=== PATIENT | male | born 1930 | race Caucasian/White ===

== ENCOUNTER 2016-05-31 09:45 | Inpatient (IN) | payer MEDICARE ==
[~2016-05-31] VITALS: Ht 170.2 cm; Wt 52.2 kg
[~2016-05-31 09:45] MED LIST: ALEN70TA3 PO; ASPI-482 PO; CALC-98 PO; CARB1TAB22 PO; FURO-69 PO; HYDR-2869 PO; LISI2.5T PO; NPH,100I SQ; OMEP20CA5 PO; SIMV20TA3 PO
[2016-05-31] MEDS ORDERED: ONDANSETRON PF 4 MG/2 ML VIAL. ONE (10:02)
[2016-05-31] MEDS ORDERED: IV NORMAL SALINE 1,000ML 500 ML IV SCH (10:23)
--- NOTE | 2016-05-31 10:35 | PHYS DOC ---
General Chief Complaint: HEMATEMESIS/VOMITING BLOOD Stated Complaint: VOMITING BLOOD Time Seen by MD: 10:08 Source: patient, old records Exam Limitations: no limitations Problems: History of Present Illness Initial Comments Pt is 85/M to ED c/o n/v. Pt states yesterday afternoon developed generalized nausea and abdominal discomfort, began vomitting. States he vomitted several times thru the evening. This am again emesis after breakfast, pt decided to come to ED. Pt denies travel or bad food exposure, last BM yesterday (small/hard), no cp/sob /focal abdominal pains/fever/chills/SUNG/focal weakness. This am some red liquid in emesis, pt feared it may be blood. Vomit on arrival to ED, not witnessed by me. RN clarifies no gross blood in emesis, will gastroccult if another specimen available. PCP Dr Morales Timing/Duration: 24 hours Severity: moderate Modifying Factors: worse with eating, improves with rest Associated Symptoms: malaise, nausea/vomiting Allergies: Coded Allergies: No Known Drug Allergies (Unverified , 03/18/13) Past Medical History Medical History: other (CAD, CHF, HTN, hyperlipidemia, pulmonary hypertension, peripheral vascular disease, orthostatic hypotension, bradycardia, COPD, peripheral neuropathy, osteoarthritis, osteoporosis, Parkinson's, CKD3, Diabetes mellitus, GERD) Surgical History: appendectomy, pacemaker, other (hernia) Social History Smoker: quit greater than 1 year (quit > 20 yrs) Alcohol: none Drugs: none Review of Systems Constitutional: denies chills, denies diaphoresis, denies fever, malaise Respiratory: see HPIdenies cough, denies wheezing Cardiovascular: denies chest pain, denies palpitations, denies syncope Gastrointestinal: see HPI Genitourinary: denies dysuria, denies frequency, denies hematuria Musculoskeletal: denies back pain, denies joint swelling, denies neck pain Psychiatric/Neurological: denies headache, denies numbness, denies paresthesia Hematologic/Lymphatic: denies blood clots, denies easy bleeding, denies easy bruising Physical Exam General Appearance: mild distress, thin Eyes: bilateral eye EOMI, bilateral eye PERRL, bilateral eye normal inspection Ear, Nose, Throat: hearing grossly normal, normal ENT inspection (dry membranes ), normal pharynx Neck: non-tender, supple Respiratory: chest non-tender, no respiratory distress, other (coarse BS L upper lung field, decreased at bases L>R, ) Cardiovascular: normal peripheral pulses, regular rate, rhythm Gastrointestinal: soft (nondistended, no focal tenderness or masses, BS diminished) Back: no CVA tenderness, no vertebral tenderness Extremities: non-tender, normal inspection Neurologic/Psychiatric: distribution tech II-XII nml as tested, no motor/sensory deficits, alert, normal mood/affect, oriented x 3 Skin: warm/dry (poor turgor) Orders, Labs, Meds EKG: NSR 84 bpm, LVH with repolarization, PVC no STEMI REASON: n/v PROCEDURE: ACUTE ABDOMEN SERIES Abdomen series with chest, 3 views, 05/31/2016: History: Nausea and vomiting Gas is present in large and small bowel in the abdomen without bowel distention. Extensive arterial calcifications are present. Surgical clips are present on the right. The stomach is distended with fluid, gas and food debris and extends into the left chest cavity. This abnormal location of the stomach has been present on multiple previous studies and has been thought to be due to chronic diaphragmatic elevation versus a diaphragmatic hernia. There is moderate underlying streaky atelectasis in the left parahilar region. The heart size is normal. There is mild parenchymal scarring on the right. No acute right lung infiltrates are seen. IMPRESSION: 1. Chronic elevation of the left hemidiaphragm with moderate underlying left perihilar atelectasis. 2. Moderate distention of the stomach which extends into the left lower chest. This may be due to gastroparesis or an obstructive process such as gastric volvulus or gastric outlet obstruction. DICTATED AND SIGNED BY: EMILIANO RUIZ MD DATE: 05/31/16 1056 CC: GENEVIEVE MORALES MD; CRISTIANO STEARNS DO ~ REASON: n/v, obstruction eval. cannot tolerate contrast PROCEDURE: ABDOMEN PELVIS WO CONTRAST CT of the abdomen and pelvis without contrast, 05/31/2016: History: Abdominal pain and vomiting Noncontrast scans were obtained as requested. Comparison is made to a CT abdomen study from 01/24/[address] chest exam from 10/02/2015. The stomach and bowel loops extend into the left lower chest. This appears to be due to a chronic diaphragmatic hernia. The upper portion of the stomach was not included on these abdominal scans. The stomach is markedly dilated with fluid, debris and gas. A similar appearance was present on the study from 01/24/2013. The stomach was not distended on the CT chest exam of 10/02/2015. The gastric roberts are not thickened. No pneumatosis is seen. The GE junction and the pyloric region of the stomach are high in position and not included on this study. The duodenum and other small bowel loops are not distended. There is gas in large and small bowel in a nonspecific pattern. A few scattered colonic diverticula are noted. No free fluid or free air is evident in the abdomen or pelvis. There is mild atelectasis and/or scarring in the right base. No pleural fluid is evident. The gallbladder is surgically absent. The unopacified liver shows no abnormality. Dilatation of common bile duct is compatible with the postcholecystectomy state. The pancreas is atrophic. The spleen is of normal size. No renal abnormality is detected. There is extensive calcific plaquing of the abdominal aorta and its branches without evidence of aneurysm. No abdominal or pelvic adenopathy is seen. The prostate gland is markedly enlarged and lobulated. There is moderate diffuse bladder wall thickening. Moderate multilevel degenerative change is present in the spine. IMPRESSION: 1. 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 2. Marked distention of the stomach with fluid, gas and food debris. A similar appearance was present on a study from 01/24/2013. CT chest scanning would be necessary for complete visualization of the stomach, if clinically indicated. 3. Marked prostatic enlargement with moderate associated bladder wall thickening, presumably due to chronic bladder obstruction. 4. Mild colonic diverticulosis. PQRS Compliance Statement: One or more of the following individualized dose reduction techniques were utilized for this examination: 1. Automated exposure control 2. Adjustment of the mA and/or kV according to patient size 3. Use of iterative reconstruction technique DICTATED AND SIGNED BY: EMILIANO RUIZ MD DATE: 05/31/16 5933 CC: GENEVIEVE MORALES MD; CRISTIANO STEARNS DO ~ Pertinent labs: WBC 13.2, Na 149, CO2 38, BUN 66, Cr 2.9, glu 287, lactic acid 3.4, trop I 0.036, BNP 9947, urine studies pending. 1340: I discussed need for inpatient management with pt and spouse. Pt refuses transfer, states if he is to be admitted he'd like to be admitted [facility]. Pt understands not all specialties/medical services he may need are readily available and [facility] would better serve his needs. Persistent requests no transfer. I discussed pt with Dr Morales who agrees to accept pt for inpatient/telemetry admission. Will start empiric rocephin, as urine studies remain pending, and per Dr Morales's instruction will initiate bowel rest (NPO ), gentle diuresis while maintaining intravascular volume with NS 100mls/h. Cardiology to be consulted, echocardiogram ordered. Pt resting comfortably no emesis since pt arrival. Departure Time of Disposition: 13:49 Disposition: 09 ADMITTED INPATIENT Diagnosis: CHF, acute on chronic renal insuff, N/V w/gastric Condition: STABLE Additional Instructions: Inpatient telemetry admission Dr Morales is accepting. CRISTIANO STEARNS DO May 31, 2016 10:35
[2016-05-31] MEDS ORDERED: ONDANSETRON PF 4 MG/2 ML VIAL. IV ONE (10:45)
[2016-05-31] MEDS ORDERED: FAMOTIDINE 20 MG/2 ML VIAL IVP ONE (10:45)
[2016-05-31 10:48] LABS: BASO % 0 % (0-3); EOS % 0 % (0-3); HEMATOCRIT 43.5 % (39.0-53.0); LYMPH # 0.8 x10^3/uL (1.0-4.8); LYMPH % 6 % (24-48); MEAN CORPUSCULAR HEMOGLOBIN 31 pg (25-35); MEAN CORPUSCULAR HGB CONC 32 g/dL (31-37); MEAN CORPUSCULAR VOLUME 97 fL (79-100); MONO # 0.9 x10^3/uL (0.0-1.1); MONO % 7 % (0-9); NEUT # 11.4 x10^3uL (1.8-7.7); NEUT % 87 % (31-73); PLATELET COUNT 230 x10^3/uL (140-400); RED BLOOD COUNT 4.49 x10^6/uL (4.30-5.70); RED CELL DISTRIBUTION WIDTH 13.2 % (11.5-14.5); WHITE BLOOD COUNT 13.2 x10^3/uL (4.0-11.0)
[2016-05-31] MEDS ORDERED: IPRATRPIUM/ALBUTEROL 0.5/2.5MG 3 ML NEBU. NEB ONE (11:00)
[2016-05-31 11:07] LABS: ALBUMIN 3.7 g/dL (3.4-5.0); ALBUMIN/GLOBULIN RATIO 0.9 (1.0-1.7); CALCIUM 9.8 mg/dL (8.5-10.1); CREATININE 2.9 mg/dL (0.7-1.3); GFR 20.7; POTASSIUM 3.8 mmol/L (3.5-5.1); TOTAL BILIRUBIN 0.5 mg/dL (0.2-1.0); TOTAL PROTEIN 7.9 g/dL (6.4-8.2)
--- NOTE | 2016-05-31 11:12 | RAD ---
Abdomen series with chest, 3 views, 05/31/2016: History: Nausea and vomiting Gas is present in large and small bowel in the abdomen without bowel distention. Extensive arterial calcifications are present. Surgical clips are present on the right. The stomach is distended with fluid, gas and food debris and extends into the left chest cavity. This abnormal location of the stomach has been present on multiple previous studies and has been thought to be due to chronic diaphragmatic elevation versus a diaphragmatic hernia. There is moderate underlying streaky atelectasis in the left parahilar region. The heart size is normal. There is mild parenchymal scarring on the right. No acute right lung infiltrates are seen. IMPRESSION: 1. Chronic elevation of the left hemidiaphragm with moderate underlying left perihilar atelectasis. 2. Moderate distention of the stomach which extends into the left lower chest. This may be due to gastroparesis or an obstructive process such as gastric volvulus or gastric outlet obstruction.
[2016-05-31] MEDS ORDERED: POTASSIUM CHLORIDE 20 MEQ TABLET.ER. PO ONE (11:45)
[2016-05-31] MEDS ORDERED: INSULIN REGULAR 100 UNIT/ML 10ML VIAL. IV ONE (11:45)
--- NOTE | 2016-05-31 11:54 | EKG ---
[address] [address] Test Date: 2016-05-31 Test Time: 10:58:56 Pat Name: ABY PEREZ Department: Room: Gender: M Buck Presser: [id number] : 1930 Requested By: CRISTIANO STEARNS Order Number: [id number] Reading MD: Measurements Intervals [place] Rate: 84 P: 0 [place]: 218 QRS: -11 QRSD: 110 T: 178 QT: 408 QTc: 486 Interpretive Statements SINUS RHYTHM VENTRICULAR PREMATURE COMPLEX(ES) ATRIAL PREMATURE COMPLEX(ES) PROLONGED OH INTERVAL LEFTWARD AXIS R-S TRANSITION ZONE IN V LEADS DISPLACED TO THE RIGHT LVH WITH REPOLARIZATION ABNORMALITY RVH WITH REPOLARIZATION ABNORMALITY PROLONGED QT ABNORMAL ECG RI6.01 Unconfirmed report Compared to ECG 04/06/2013 18:02:49 First degree AV block now present Left-axis deviation now present Right ventricular hypertrophy now present Prolonged QT interval now present ST (T wave) deviation no longer present
--- NOTE | 2016-05-31 13:18 | RAD ---
CT of the abdomen and pelvis without contrast, 05/31/2016: History: Abdominal pain and vomiting Noncontrast scans were obtained as requested. Comparison is made to a CT abdomen study from 01/24/[address] chest exam from 10/02/2015. The stomach and bowel loops extend into the left lower chest. This appears to be due to a chronic diaphragmatic hernia. The upper portion of the stomach was not included on these abdominal scans. The stomach is markedly dilated with fluid, debris and gas. A similar appearance was present on the study from 01/24/2013. The stomach was not distended on the CT chest exam of 10/02/2015. The gastric roberts are not thickened. No pneumatosis is seen. The GE junction and the pyloric region of the stomach are high in position and not included on this study. The duodenum and other small bowel loops are not distended. There is gas in large and small bowel in a nonspecific pattern. A few scattered colonic diverticula are noted. No free fluid or free air is evident in the abdomen or pelvis. There is mild atelectasis and/or scarring in the right base. No pleural fluid is evident. The gallbladder is surgically absent. The unopacified liver shows no abnormality. Dilatation of common bile duct is compatible with the postcholecystectomy state. The pancreas is atrophic. The spleen is of normal size. No renal abnormality is detected. There is extensive calcific plaquing of the abdominal aorta and its branches without evidence of aneurysm. No abdominal or pelvic adenopathy is seen. The prostate gland is markedly enlarged and lobulated. There is moderate diffuse bladder wall thickening. Moderate multilevel degenerative change is present in the spine. IMPRESSION: 1. 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 2. Marked distention of the stomach with fluid, gas and food debris. A similar appearance was present on a study from 01/24/2013. CT chest scanning would be necessary for complete visualization of the stomach, if clinically indicated. 3. Marked prostatic enlargement with moderate associated bladder wall thickening, presumably due to chronic bladder obstruction. 4. Mild colonic diverticulosis. PQRS Compliance Statement: One or more of the following individualized dose reduction techniques were utilized for this examination: 1. Automated exposure control 2. Adjustment of the mA and/or kV according to patient size 3. Use of iterative reconstruction technique
[2016-05-31] MEDS ORDERED: ONDANSETRON PF 4 MG/2 ML VIAL. IV PRN (13:45)
[2016-05-31] MEDS ORDERED: ACETAMINOPHEN 325 MG TABLET PO PRN (13:45)
[2016-05-31] MEDS ORDERED: FUROSEMIDE 40 MG/4 ML VIAL IVP ONE (14:00)
[2016-05-31] MEDS ORDERED: CEFTRIAXONE SODIUM 1 GM in IV NORMAL SALINE 50ML 50 ML IV ONE (14:00)
[2016-05-31 14:06] LABS: AMPHETAMINE/METHAMPHETAMINE NEG (NEG); BARBITURATES NEG (NEG); BENZODIAZEPINES NEG (NEG); CANNABINOIDS NEG (NEG); COCAINE NEG (NEG); METHADONE NEG (NEG); OPIATES NEG (NEG); PHENCYCLIDINE NEG (NEG)
[2016-05-31 14:13] LABS: BILIRUBIN,URINE NEG (NEG); CLARITY,URINE CLEAR; COLOR,URINE YELLOW; GLUCOSE,URINE NEG (NEG)
[2016-05-31 14:14] LABS: BACTERIA,URINE 0 /HPF (0-FEW); HYALINE CASTS, URINE MANY /HPF; NITRITE,URINE NEG (NEG); RBC,URINE 20-40 /HPF (0-2); SQUAMOUS EPITHELIAL CELL,UR OCC /LPF; UROBILINOGEN,URINE 0.2 mg/dL (0.2 mg/dL); WBC,URINE RARE /HPF (0-4)
[2016-05-31 14:15] LABS: AMORPHOUS SEDIMENT,UR PRESENT /HPF
[2016-05-31] MEDS ORDERED: DEXTROSE 50% 25 GM / 50ML DISP.SYRIN. IV PRN (14:45)
[2016-05-31] MEDS ORDERED: ALBUTEROL SULFATE 2.5 MG/3 ML NEBU. NEB PRN (14:45)
[2016-05-31] MEDS ORDERED: IV NORMAL SALINE 250ML 250 ML ONE (14:58)
[2016-05-31] MEDS ORDERED: IV NORMAL SALINE 1,000ML 1,000 ML IV SCH (15:00)
[2016-05-31] MEDS ORDERED: CEFTRIAXONE SODIUM 1 GM in IV NORMAL SALINE 50ML 50 ML IV SCH (15:00)
[2016-05-31] MEDS ORDERED: IV NORMAL SALINE 100ML 100 ML ONE (15:03)
[2016-05-31] MEDS ORDERED: CALC-47 PO (15:07)
[2016-05-31] MEDS ORDERED: FURO20TA3 PO (15:09)
[2016-05-31] MEDS ORDERED: ACET500T68 PO (15:14)
[2016-05-31] MEDS ORDERED: AMLO2.5T PO (15:14)
[2016-05-31 15:15] VITALS: BP 177/64
[2016-05-31] MEDS ORDERED: POTA10TA10 PO (15:18)
[2016-05-31 15:28] VITALS: BP 126/63
--- NOTE | 2016-05-31 15:42 | NUR ---
Patient to room 109 from ER. Chief complaint is abdominal pain. Oriented to room, use of call light, and plan of care. Received verbalization of understanding, denies questions/needs. Will monitor.
--- NOTE | 2016-05-31 15:57 | NUR ---
Patient with positive sepsis screen. Initial lactic acid was 3.4 in the ED at 1035, per sepsis protocol this does not call for fluid bolus. Second lactic drawn at 1435 upon arrival to floor, this lactic was 5.8, was notified. Per sepsis screen fluid bolus not given due to INITIAL lactic acid less than 4 as stated in protocol. Patient not hypotensive. Will monitor. Addendum: 05/31/16 at 1620 by LYNNETTE ZALDIVAR RN Clarification. Patient without positive sepsis screen, per protocol patient scores 2 from Infection Criteria, but only 1 from SIRS. Vitals are stable and within normal limits. Per infection control without elevated HR or hypotension bolus not necessary at this time. Will continue to monitor.
[2016-05-31] MEDS ORDERED: IPRATRPIUM/ALBUTEROL 0.5/2.5MG 3 ML NEBU. NEB SCH (16:00)
[2016-05-31] MEDS ORDERED: INSULIN ASPART 300 UNITS/3 ML INSULN.PEN SQ SCH (16:30)
--- NOTE | 2016-05-31 17:33 | NUR ---
Patient transferred to ICU at [facility] room 109. Report called to JEREMIAH Nicholson. Chart copied and sent with patient. Patient agreeable to transfer, consent signed. Patient transported via [facility].
[2016-05-31] MEDS ORDERED: FUROSEMIDE 20 MG/2 ML VIAL IVP SCH ×2 (18:00→21:30)
[2016-05-31] MEDS ORDERED: POTASSIUM CHLORIDE 20 MEQ TABLET.ER. PO SCH ×2 (18:00→21:30)
--- NOTE | 2016-06-05 10:34 | HP ---
ADMIT DATE: 05/31/2016 HISTORY OF PRESENT ILLNESS: An 85-year-old gentleman admitted on 05/31/2016, came in through the Emergency Room with severe abdominal pain, nausea, and vomiting. The patient has vomited several times prior to admission and ___ liquid emesis. The patient was seen in the ER and found to have a possible gastric outlet obstruction. As a result of this, the patient was admitted at that time. When he was seen in the Emergency Room, he had refused to go down to [place]. He came in and I evaluated him and convinced him and his family that the best position would be to go to [place] for surgical intervention. He probably had a gastric outlet obstruction or possible volvulus as well. PAST MEDICAL HISTORY: CAD, CHF, hypertension, hyperlipidemia, pulmonary hypertension, peripheral vascular disease, orthostatic hypotension, bradycardia, COPD, peripheral neuropathy, arthritis, osteoporosis, Parkinson's disease, CKD 3, and type 2 diabetes. PAST SURGICAL HISTORY: He has had appendectomy, pacemaker placement, and severe hiatal hernia. SOCIAL HISTORY: The patient quit smoking more 20 years ago. Denies alcohol or drug use. Lives at home with his . FAMILY HISTORY: Noncontributory. ALLERGIES: No known drug allergies. REVIEW OF SYSTEMS: The patient notes the situation is made worse when he eats. HOME MEDICATIONS: The patient's home medications include Norvasc 2.5, aspirin, calcium carbonate, and furosemide 20. He takes some insulin, Prilosec 40, potassium chloride 20, and simvastatin 20. REVIEW OF SYSTEMS: Positive for nausea and vomiting. Denies chest pain. Does have some shortness of breath; however, the patient in turn. PHYSICAL EXAMINATION VITAL SIGNS: Blood pressure 150/70, respiration is 16, pulse 70, and afebrile. HEENT: The patient's head atraumatic and normocephalic. Eyes, PERRLA without jaundice. Mouth and throat were normal. NECK: Supple without JVD or thyromegaly. LUNGS: Diminished throughout, but clear. CARDIOVASCULAR: Regular sinus rhythm. S1 and S2. ABDOMEN: Protuberant, soft, and tenderness in the epigastric area. Definite decreased bowel sounds. ____ areas throughout the abdomen, which was distended. Stool Hemoccult negative. Normal male genitalia. EXTREMITIES: No clubbing, cyanosis, or edema. NEUROLOGIC: The patient was alert and oriented x3. LABORATORY DATA: The patient's labs were basically noncontributory. White count was 13,000. He did have a lactic acid of 5.8 and blood sugars in the 200s-300s. His creatinine was up to ____. IMPRESSION: Possible stomach or gastric outlet obstruction, elevated BNP, possible acute on top of chronic diastolic heart failure, elevated D-dimer, hematuria, type 2 diabetes, poorly controlled; chronic kidney disease 4, hypernatremia, dehydration, nausea, and vomiting. PLAN: The patient was stabilized and was convinced to go down to [place] where he had surgery for fundoplication of his esophagus. GENEVIEVE MORALES MD DR: IVON/my JOB#: [id number] / [id number]
--- NOTE | 2016-06-24 21:35 | DS ---
DATE OF DISCHARGE: 05/31/2016 HOSPITAL COURSE: An 86-year-old gentleman came in through the Emergency Room with severe abdominal pain, vomiting several times prior to admission. The patient was thought to have some type of a gastric outlet obstruction, also renal failure, CKD 4. The patient was transferred down to [place] because of the combination of problems regarding both Nephrology and GI and surgery that is not available here. See MRAD. Decreased activity, transfer to EMS. FINAL DIAGNOSES: Gastric out outlet obstruction, possible volvulus of the stomach, chronic kidney disease 4, elevated lactic acid, elevated BNP, hematuria. PLAN: As above. GENEVIEVE MORALES MD DR: IVON/my JOB#: [id number] / [id number]
== END 2016-05-31 17:38 | disposition short-term general hospital (02) | DRG 381 ==
LOC: ER 09:45 → 1 SOUTH 13:37
PROVIDERS: ADMIT Family Medicine; ATTEND Family Medicine
DX: K31.1 Adult hypertrophic pyloric stenosis (principal); I13.0 Hypertensive heart and chronic kidney disease with heart failure and stage 1 through stage 4 chronic kidney disease, or unspecified chronic kidney disease; N18.4 Chronic kidney disease, stage 4 (severe); E87.0 Hyperosmolality and hypernatremia; J98.11 Atelectasis; K92.0 Hematemesis; M81.0 Age-related osteoporosis without current pathological fracture; J44.9 Chronic obstructive pulmonary disease, unspecified; I27.2 Other secondary pulmonary hypertension; I25.10 Atherosclerotic heart disease of native coronary artery without angina pectoris; G20 Parkinson's disease; E78.5 Hyperlipidemia, unspecified; E11.51 Type 2 diabetes mellitus with diabetic peripheral angiopathy without gangrene; M19.90 Unspecified osteoarthritis, unspecified site; I95.1 Orthostatic hypotension; R00.1 Bradycardia, unspecified; E11.22 Type 2 diabetes mellitus with diabetic chronic kidney disease; E11.42 Type 2 diabetes mellitus with diabetic polyneuropathy; K21.9 Gastro-esophageal reflux disease without esophagitis; K44.9 Diaphragmatic hernia without obstruction or gangrene; K57.30 Diverticulosis of large intestine without perforation or abscess without bleeding; N18.3 Chronic kidney disease, stage 3 (moderate); N40.0 Benign prostatic hyperplasia without lower urinary tract symptoms; Z87.891 Personal history of nicotine dependence; Z95.0 Presence of cardiac pacemaker; Z90.49 Acquired absence of other specified parts of digestive tract; K31.89 Other diseases of stomach and duodenum; I50.9 Heart failure, unspecified
CPT/HCPCS: 36415; 74022; 74176; 80053; 81001; 82550; 82947; 83605; 83690; 83880; 84484; 85027; 85379; 85610; 85730; 87040; 93005; 94640; 96374; 96375; G0481; J0696; J1815; J1940; J2405; J7620; S0028; 99285-25; J7030

== ENCOUNTER 2017-05-03 10:30 | Inpatient (IN) | payer MEDICARE ==
[~2017-05-03] VITALS: Ht 160 cm; Wt 50.8 kg
[~2017-05-03 10:30] MED LIST changes: +ACET500T68 PO; +AMLO2.5T PO; +CALC-157 PO; +FURO20TA3 PO; +POTA10TA10 PO
[2017-05-03] MEDS ORDERED: 0.9 % SODIUM CHLORIDE 10 ML DISP.SYRIN. IV PRN (11:15)
--- NOTE | 2017-05-03 11:28 | EKG ---
[address] [address] Test Date: 2017-05-03 Test Time: 11:21:30 Pat Name: ABY PEREZ Department: Room: Gender: M Assembler Carbon Brushes: SAL[place] : 1930 Requested By: MEME AGUILAR Order Number: [id number] Reading MD: All Rosenthal MD Measurements Intervals [place] Rate: 60 P: ME: QRS: 5 QRSD: 160 T: 165 QT: 466 QTc: 471 Interpretive Statements ATRIAL DEMAND PACEMAKER V-PACED Electronically Signed On 05-06-2017 11:12:22 SEISMOGRAPH OPERATOR HELPER by All Rosenthal MD
[2017-05-03 11:30] LABS: BASO % 1 % (0-3); EOS # 0.2 x10^3/uL (0.0-0.7); EOS % 3 % (0-3); HEMATOCRIT 33.2 % (39.0-53.0); HEMOGLOBIN 11.1 g/dL (13.0-17.5); LYMPH # 1.7 x10^3/uL (1.0-4.8); LYMPH % 25 % (24-48); MEAN CORPUSCULAR HEMOGLOBIN 31 pg (25-35); MEAN CORPUSCULAR HGB CONC 33 g/dL (31-37); MEAN CORPUSCULAR VOLUME 93 fL (79-100); MONO # 0.6 x10^3/uL (0.0-1.1); MONO % 9 % (0-9); NEUT # 4.1 x10^3uL (1.8-7.7); NEUT % 62 % (31-73); PLATELET COUNT 347 x10^3/uL (140-400); RED BLOOD COUNT 3.57 x10^6/uL (4.30-5.70); RED CELL DISTRIBUTION WIDTH 15.2 % (11.5-14.5); WHITE BLOOD COUNT 6.6 x10^3/uL (4.0-11.0)
[2017-05-03 11:57] LABS: ALBUMIN 2.6 g/dL (3.4-5.0); ALBUMIN/GLOBULIN RATIO 0.7 (1.0-1.7); CALCIUM 8.8 mg/dL (8.5-10.1); CREATININE 1.2 mg/dL (0.7-1.3); GFR 57.1; MAGNESIUM 1.9 mg/dL (1.8-2.4); POTASSIUM 4.8 mmol/L (3.5-5.1); TOTAL BILIRUBIN 0.2 mg/dL (0.2-1.0); TOTAL PROTEIN 6.6 g/dL (6.4-8.2)
--- NOTE | 2017-05-03 12:03 | RAD ---
Two-view chest x-ray Indications: Shortness of air. Comparison: May 31, 2016. Findings: There is chronic elevation of the left hemidiaphragm up to the left hilum. Chronic atelectasis and scarring within the left lung base. There is an air-fluid level present laterally which corresponds to a bowel loop as seen on previous CT study of the chest dated October 02, 2015. There is another air-fluid level seen overlying the central aspect of the mediastinum which most likely is related to the stomach based on the previous study. There is chronic scarring and pleural thickening on the right side as well. No new lung infiltrate or pulmonary edema or new pleural effusion or new pneumothorax is seen. Transverse dimension of the heart is accentuated due to the rotation towards right side. A bipolar atrial-ventricular pacemaker is again noted. Mediastinum and pulmonary vasculature and both betty are stable otherwise. IMPRESSION: Chronic findings. No new radiographic abnormality is seen.
--- NOTE | 2017-05-03 13:03 | PHYS DOC ---
Past History Past Medical History: CHF, Diabetes, Hypertension, Other Past Surgical History: Pacemaker Smoking: Non-smoker Alcohol Use: None Drug Use: None Adult General Chief Complaint Chief Complaint: SHORTNESS OF BREATH HPI HPI 86-year-old male patient with history of chronic shortness of breath and diabetic ulcer. Osteomyelitis was seen by his primary care physician 4 days ago and because of history of pleural effusion instructed to follow up with his hide dyer [facility] but patient presented to his primary care physician office today again and Dr. Cruz recommended to come to ER for evaluation. Patient states he has chronic right foot ulcer and plans to have surgery on May 06 at [facility]. Patient denied fever and chills, cough and congestion, new focal neuro deficit, chest pain. Review of Systems Review of Systems Constitutional: Denies fever or chills [] Eyes: Denies change in visual acuity, redness, or eye pain [] HENT: Denies nasal congestion or sore throat [] Respiratory: Reports shortness of breath[] Cardiovascular: No additional information not addressed in HPI [] GI: Denies abdominal pain, nausea, vomiting, bloody stools or diarrhea [] : Denies dysuria or hematuria [] Musculoskeletal: Denies back pain or joint pain [] Integument: Denies rash or skin lesions, reports ulcer[] Neurologic: Denies headache, focal weakness or sensory changes [] Endocrine: Denies polyuria or polydipsia [] All other systems were reviewed and found to be within normal limits, except as documented in this note. Current Medications Current Medications Current Medications Medications (Trade) Dose Ordered Sig/[facility] Start Time Stop Time Status Last Admin Dose Admin Sodium Chloride (Normal Saline Flush) 10 ml QSHIFT PRN 05/03/17 11:15 Allergies Allergies Allergies Coded Allergies Type Severity Reaction Last Updated Verified No Known Drug Allergies 03/18/13 No Physical Exam Physical Exam Constitutional: Mild distress normal, oropharynx moist, no oral exudates, nose normal. [] Eyes: PERRLA, EOMI, conjunctiva normal, no discharge. [] Neck: Normal range of motion, no tenderness, supple, no stridor. [] Cardiovascular:Heart rate regular rhythm, no murmur [] Lungs & Thorax: Decrease of left lung With Bilateral Rhonchi, No Respiratory Distress or Intercostal Retraction] Abdomen: Bowel sounds normal, soft, no tenderness, no masses, no pulsatile masses. [] Skin: Warm, dry, no erythema, no rash. [] Back: No tenderness, no CVA tenderness. [] Extremities: Right foot with amputated toes and old ulcer in bottom of forefoot without acute abscess Neurologic: Alert and oriented X 3, normal motor function, normal sensory function, no focal deficits noted. [] Psychologic: Affect normal, judgement normal, mood normal. [] Current Patient Data Lab Results Laboratory Tests Test 05/03/17 11:14 White Blood Count 6.6 x10^3/uL (4.0-11.0) Red Blood Count 3.57 x10^6/uL (4.30-5.70) L Hemoglobin 11.1 g/dL (13.0-17.5) L Hematocrit 33.2 % (39.0-53.0) L Mean Corpuscular Volume 93 fL (79-100) Mean Corpuscular Hemoglobin 31 pg (25-35) Mean Corpuscular Hemoglobin Concent 33 g/dL (31-37) Red Cell Distribution Width 15.2 % (11.5-14.5) H Platelet Count 347 x10^3/uL (140-400) Neutrophils (%) (Auto) 62 % (31-73) Lymphocytes (%) (Auto) 25 % (24-48) Monocytes (%) (Auto) 9 % (0-9) Eosinophils (%) (Auto) 3 % (0-3) Basophils (%) (Auto) 1 % (0-3) Neutrophils # (Auto) 4.1 x10^3uL (1.8-7.7) Lymphocytes # (Auto) 1.7 x10^3/uL (1.0-4.8) Monocytes # (Auto) 0.6 x10^3/uL (0.0-1.1) Eosinophils # (Auto) 0.2 x10^3/uL (0.0-0.7) Basophils # (Auto) 0.0 x10^3/uL (0.0-0.2) Prothrombin Time 11.0 SEC (9.4-11.4) Prothrombin Time INR 1.1 (0.9-1.1) PTT 29 SEC (23-33) Sodium Level 143 mmol/L (136-145) Potassium Level 4.8 mmol/L (3.5-5.1) Chloride Level 106 mmol/L (98-107) Carbon Dioxide Level 32 mmol/L (21-32) Anion Gap 5 (6-14) L Blood Urea Nitrogen 32 mg/dL (8-26) H Creatinine 1.2 mg/dL (0.7-1.3) Estimated GFR (Cockcroft-Gault) 57.1 BUN/Creatinine Ratio 27 (6-20) H Glucose Level 144 mg/dL (70-99) H Lactic Acid Level 1.5 mmol/L (0.4-2.0) Calcium Level 8.8 mg/dL (8.5-10.1) Magnesium Level 1.9 mg/dL (1.8-2.4) Total Bilirubin 0.2 mg/dL (0.2-1.0) Aspartate Amino Transferase (AST) 20 U/L (15-37) Alanine Aminotransferase (ALT) 7 U/L (16-63) L Alkaline Phosphatase 103 U/L (46-116) Creatine Kinase 23 U/L (39-308) L Creatine Kinase MB (Mass) 0.8 ng/mL (0.0-3.6) Creatine Kinase MB Relative Index 3.5 % (0-4) Troponin I Quantitative < 0.017 ng/mL (0-0.055) WD-Mrw-C-Type Natriuretic Peptide 63441 pg/mL (0-449) H Total Protein 6.6 g/dL (6.4-8.2) Albumin 2.6 g/dL (3.4-5.0) L Albumin/Globulin Ratio 0.7 (1.0-1.7) L EKG EKG [EKG at 1122 showed sinus rhythm at rate of 60, LVH, no acute ST and T wave abnormality] Radiology/Procedures Radiology/Procedures [] Course & Med Decision Making Course & Med Decision Making Pertinent Labs and Imaging studies reviewed. (See chart for details) Evaluation of patient in ER showed 86-year-old male patient presented to ER because of chronic shortness of breath and diabetic ulcers. Patient had stable vital signs without fever. Chest x-ray did not show acute change compared to previous one. Labs showed mild anemia and renal insufficiency. Dr. Cruz informed at 1257 and recommended to admit patient for diabetic ulcer and start Rocephin. [] Dragon Disclaimer Dragon Disclaimer This electronic medical record was generated, in whole or in part, using a voice recognition dictation system. Departure Departure: Impression: Primary Impression: Diabetic ulcer of right foot Additional Impressions: Pleural effusion, left Renal insufficiency Dyspnea Anemia Disposition: ADMITTED INPATIENT (At 1257) Admitting Physician: Pramod Cruz Condition: STABLE Referrals: PRAMOD CRUZ MD (PCP) Problem Qualifiers MEME AGUILAR MD May 03, 2017 13:03
[2017-05-03] MEDS ORDERED: cefTRIAXone IV Push 1 GM VIAL. IVP SCH (14:00)
[2017-05-03 14:21] VITALS: BP 182/78
[2017-05-03 14:22] VITALS: BP 182/78
[2017-05-03] MEDS ORDERED: CARB1TAB2 PO (15:19)
[2017-05-03] MEDS ORDERED: SIMV20TA3 PO (15:19)
[2017-05-03] MEDS ORDERED: OMEP40CA5 PO (15:19)
[2017-05-03] MEDS ORDERED: ASPI-630 PO (15:19)
[2017-05-03] MEDS ORDERED: CALC-157 PO (15:19)
[2017-05-03] MEDS ORDERED: POTA20TA4 PO (15:19)
[2017-05-03] MEDS ORDERED: FURO20TA3 PO ×2 (15:19)
[2017-05-03] MEDS ORDERED: AMLO2.5T PO (15:19)
[2017-05-03] MEDS ORDERED: CEFP200T PO (15:27)
[2017-05-03] MEDS ORDERED: LACT1CAP2 PO (15:27)
[2017-05-03] MEDS ORDERED: NPH,100V SQ ×2 (15:40→18:55)
[2017-05-03] MEDS ORDERED: INSU500I SQ (15:40)
[2017-05-03] MEDS ORDERED: VANCOMYCIN PER PHARMACY MC PRN (18:15)
[2017-05-03] MEDS ORDERED: NPH HUMAN INSULIN ISOPHANE SQ PRN (18:15)
[2017-05-03] MEDS ORDERED: INSU100V5 IJ (18:58)
[2017-05-03] MEDS: CARBIDOPA/LEVODOPA 25/100MG TABLET PO SCH (21:00)
[2017-05-03] MEDS ORDERED: CEFPODOXIME PROXETIL 200 MG TABLET PO SCH (21:00)
[2017-05-03] MEDS: LACTOBACILLUS RHAMNOSUS GG 1 CAPSULE. PO SCH (21:00)
[2017-05-03] MEDS ORDERED: VANCOMYCIN 1.25 GM in IV NORMAL SALINE 250ML 250 ML IV ONE (21:00)
[2017-05-03] MEDS ORDERED: LACTOBACILLUS RHAMNOSUS GG 1 CAPSULE. PO SCH (21:00)
[2017-05-03] MEDS: hydrALAZINE 10 MG TABLET PO SCH (21:00)
[2017-05-03] MEDS: SIMVASTATIN 20 MG TABLET PO SCH (21:00)
[2017-05-03] MEDS: CALCIUM CARB/VIT D3 500/200 TABLET PO SCH (21:00)
[2017-05-03 21:21] VITALS: BP 170/79
[2017-05-03 21:35] VITALS: BP 157/76
[2017-05-03 23:54] VITALS: BP 154/79
[2017-05-04 06:16] VITALS: BP 175/87
[2017-05-04] MEDS ORDERED: INSULIN REGULAR HUMAN SQ SCH (07:30)
[2017-05-04] MEDS: INSULIN ASPART 300 UNITS/3 ML INSULN.PEN SQ SCH ×3 (07:30→17:15)
[2017-05-04 08:46] VITALS: BP 161/71
[2017-05-04] MEDS: hydrALAZINE 10 MG TABLET PO SCH ×2 (08:56→13:36)
[2017-05-04] MEDS: ASPIRIN 81 MG TAB.CHEW PO SCH (08:57)
[2017-05-04] MEDS: LACTOBACILLUS RHAMNOSUS GG 1 CAPSULE. PO SCH ×2 (08:58→20:53)
[2017-05-04] MEDS ORDERED: amLODIPine BESYLATE 2.5 MG TABLET PO SCH (09:00)
[2017-05-04] MEDS ORDERED: FLU VACC QS2017-18 (36MOS+)/PF 0.5 ML SYRINGE. VAX IM ONE (09:00)
[2017-05-04] MEDS: POTASSIUM CHLORIDE 20 MEQ TABLET.ER. PO SCH (09:00)
[2017-05-04] MEDS: CALCIUM CARB/VIT D3 500/200 TABLET PO SCH ×2 (09:03→20:53)
[2017-05-04] MEDS: PANTOPRAZOLE 40 MG TABLET. PO SCH (09:04)
[2017-05-04] MEDS: CARBIDOPA/LEVODOPA 25/100MG TABLET PO SCH ×4 (09:07→20:53)
[2017-05-04 10:39] VITALS: BP 153/66
--- NOTE | 2017-05-04 15:04 | PDOC2 ---
ANGELA ROSENTHAL FRAME COVERER 05/04/17 1504: CONSULT Date of Admission DATE: 05/04/17 TIME: 14:46 Reason for Consult: Congestive heart failure Referring Physician: Dr Cruz Problem List Problems Medical Problems: (1) Diabetic ulcer of right foot Status: Acute (2) SOB (shortness of breath) Status: Acute History of Present Illness This is a 86 year old male who presented to his primary care doctor's office yesterday with shortness of breath. He has a history of severe three vessel coronary artery disease for which he has been on medical therapy, ischemic cardiomyopathy, chronic systolic heart failure, sick sinus syndrome, hypertension, hyperlipidemia, type 2 diabetes mellitus, and stage 3 chronic kidney disease. Earlier in the month he was seen by the [place] and a CT scan was done that showed recurrent large left pleural effusion. He was encouraged to go back and see the tour bus driver he followed with at [facility] to get it drained. He tells me that they told him he was high risk and did not want to do any type of procedures or surgery. When I review the notes at [facility] he has not been seen there since 2013. He has also been suffering from osteomyelitis and was restarted on antibiotics. He continues to weigh himself daily and his weight has been down about 10 lb over the last month or 2. he does basic walking in his home but has been more short of breath and feeling weak the last few weeks. He denies any PND or orthopnea. His appetite is poor and he has not been sleeping well. He denies any chest pain, pressure or tightness. He cannot remember having any palpitations. Last week he was having some lower extremity edema that has since resolved. PAST MEDICAL HISTORY: Recurrent left pleural effusion, severe three vessel coronary artery disease for which he has been on medical therapy, ischemic cardiomyopathy now improved, chronic diastolic and systolic heart failure, sick sinus syndrome, hypertension, hyperlipidemia, type 2 diabetes mellitus, and stage 3 chronic kidney disease Past surgical history: Pacemaker placement, Appendectomy, Hernia Repair REVIEW OF SYSTEMS: He denies any fever or malaise. He denies any viral symptoms. He denies any neck pain. He denies any palpitations, dizziness, lightheadedness, or syncope, and asthma. He denies any cough. He denies any abdominal pain, diarrhea, vomiting, hematemesis, or melena. He has chronic leg ulceration of chronic edema. 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 He is slightly unsteady with his gait. He denies any falls. SOCIAL HISTORY: The patient was most recently discharged and lives at home with his . He uses regular salt and does not follow a low-salt diet. He used to smoke, but quit 20 years ago. He takes alcohol on social occasions. FAMILY HISTORY: Negative for premature coronary artery disease. Allergies -no known medication allergies Physical Exam Vital signs - temperature 97.2 pulse is 77 and blood pressure 153/66 GENERAL: This is a well developed, thin male. No apparent distress. SKIN: Warm and dry with normal skin turgor. Negative for pallor. +bruising noted. EYES: Conjunctiva are clear. Extraocular movements are intact. No xanthelasma. HEAD AND NECK: Oral mucosa is moist. There is no cyanosis. Neck is supple. Jugular venous pressure is flat. Carotid pulses are 2/2 bilaterally. No carotid bruits. There is no obvious thyromegaly. HEART: Regular rate and rhythm. Normal S1 and S2. No S3. No S4. + systolic murmur. No rub. PMI is not displaced. LUNGS: Effort is good. There is symmetric expansion bilaterally. Clear with diminished right base. ABDOMEN: Normal active bowel sounds. Soft. Nontender. EXTREMITIES: No clubbing. No cyanosis. No edema of lower extremities. Palpable pedal pulses. MUSCULOSKELETAL: No kyphosis. No scoliosis. No localized tenderness or stiffness. NEUROLOGIC: Alert and oriented times three. Cranial nerves III-XII are grossly intact. PSYCHOLOGIC: This is a pleasant patient with a normal affect Procedure ECHOCARDIOGRAM IMPRESSION (10/01/2015):. This is a technically difficult study There is moderate to severe left ventricular systolic dysfunction with an estimated ejection fraction of 30-35%. There is evidence of impaired left ventricular relaxation suggestive of stage I diastolic dysfunction. There is mild aortic valve sclerosis. There is mild mitral annular calcification. There is moderate mitral regurgitation. Compared to the report (images were not available for review) of the study dated 09/22/2013, the ejection fraction has decreased and the mitral regurgitation has increased, but the left atrial dilatation and the and the pulmonary hypertension was not seen. ECHOCARDIOGRAM IMPRESSION (09/24/2014): There is paradoxical septal motion consistent with a pacemaker. There is mild left ventricular systolic dysfunction with an estimated ejection fraction of 40- 45% with regional wall motion abnormalities. There is evidence of decreased diastolic compliance of the left ventricle consistent with mild diastolic dysfunction. The left atrium appears mildly dilated. The estimated pulmonary artery systolic pressure is 43 mmHg, consistent with mild pulmonary hypertension. Compared to the report (images were not available for review) of the study dated 04/08/2012, there has been a decrease in the ejection fraction. HOLTER MONITOR IMPRESSION (11/02/2013): 1. Baseline sinus bradycardia with an average heart rate of 51 beats per minute , ranging from 26 to 92 beats per minute with occasional supraventricular and ventricular ectopy as outlined above. There was no high-grade ectopy. 2. No symptoms were reported. Impression and plan Congestive heart failure, chronic, systolic - plan for echocardiogram today. He his BNP is significantly elevated however His pulmonary vascularity is normal on his chest x-ray and his weight has been dropping. His blood pressure is elevated and we could trial entresto one tablet twice a day this would help with bring his BNP level down and his cardiomyopathy. Severe 3 vessel coronary artery disease being treated with medical management. History of [place]. Refused further catheterization and bypass surgery. We will continue optimal medical therapy Sick sinus syndrome s/p permanent pacemaker implantation. Hypertension, borderline controlled. plan to add low dose entresto. Ischemic cardiomyopathy, Plan for low dose entresto Hyperlipidemia. His goal LDL is < 70 mg/dL. Continue statin. Current Medications Current Medications Sodium Chloride (Normal Saline Flush) 10 ml QSHIFT PRN IV AFTER MEDS AND BLOOD DRAWS; Start 05/03/17 at 11:15 Ceftriaxone Sodium 1 gm/ Sodium Chloride 50 ml @ 100 mls/hr 1X ONCE IV ; Start 05/03/17 at 13:15; Stop 05/03/17 at 13:44; Status DC Ceftriaxone Sodium (Rocephin) 1 gm Q24H IVP Last administered on 05/03/17at 14: 33; Start 05/03/17 at 14:00; Stop 05/03/17 at 18:16; Status DC Lactobacillus Rhamnosus (Culturelle) 1 cap BID PO ; Start 05/03/17 at 21:00; Status Cancel Influenza Virus Vaccine Quadrival (Fluarix Quad [id number] Syringe) 0.5 ml ONCE ONCE VAX IM Last administered on 05/04/17at 12:55; Start 05/04/17 at 09:00; Stop 05/04/17 at 09:01; Status DC Amlodipine Besylate (Norvasc) 2.5 mg DAILY PO Last administered on 05/04/17at 09 :03; Start 05/04/17 at 09:00 Aspirin (Children'S Aspirin) 81 mg DAILY PO Last administered on 05/04/17at 08: 57; Start 05/04/17 at 09:00 Calcium/Vitamin D (Oscal D 500mg/ 200uts) 1 tab BID PO Last administered on at 09:03; Start 05/03/17 at 21:00 Carbidopa/Levodopa (Sinemet 25/100) 1 tab QID PO Last administered on at 12:44; Start 05/03/17 at 21:00 Cefpodoxime Proxetil (Vantin) 100 mg BID PO ; Start 05/03/17 at 21:00; Stop at 21:00; Status DC Potassium Chloride (Klor-Con) 20 meq DAILY PO ; Start 05/04/17 at 09:00 Simvastatin (Zocor) 20 mg QHS PO Last administered on 05/03/17at 21:00; Start at 21:00 Non-Formulary Medication 5 unit TIDAC SQ ; Start 05/04/17 at 07:30; Stop at 07:30; Status DC Lactobacillus Rhamnosus (Culturelle) 1 cap BID PO Last administered on at 08:58; Start 05/03/17 at 21:00 Non-Formulary Medication 5 unit HS PRN SQ FOR BLOOD SUGAR >200; Start 05/03/17 at 18:15; Stop 05/03/17 at 19:02; Status DC Pantoprazole Sodium (Protonix) 40 mg DAILY PO Last administered on 05/04/17at 09 :04; Start 05/04/17 at 09:00 Vancomycin HCl (Vanco Per Pharmacy) 1 each PRN DAILY PRN MC SEE COMMENTS Last administered on 05/03/17at 19:26; Start 05/03/17 at 18:15 Hydralazine HCl (Apresoline) 10 mg TID PO Last administered on 05/04/17at 13:36 ; Start 1/29/18 at 21:00 Insulin Aspart (NovoLOG) FSBS 150-2,00: 3 UNITS F... TIDAC SQ Last administered on 05/04/17at 12:47; Start 05/04/17 at 07:30 Vancomycin HCl 1.25 gm/Sodium Chloride 250 ml @ 166.667 mls/hr 1X ONCE IV Last administered on 05/03/17at 21:42; Start 05/03/17 at 21:00; Stop 05/03/17 at 22:29; Status DC Vancomycin HCl 750 mg/Sodium Chloride 250 ml @ 250 mls/hr Q24H IV ; Start 05/04 at 21:00 Vancomycin HCl 1 each 1X ONCE MC ; Start 05/05/17 at 20:30; Stop 05/05/17 at 20 :31 Active Scripts Active Reported Humulin R (Insulin Regular, Human) 100 Unit/1 Ml Vial 3-5 Unit IJ TIDAC LAST DOSE GIVEN: DATE: TIME: NEXT DOSE DUE: DATE: TIME: Humulin N (Nph, Human Insulin Isophane) 100 Unit/1 Ml Vial 5 Unit SQ HS PRN LAST DOSE GIVEN: DATE: TIME: NEXT DOSE DUE: DATE: TIME: Cefpodoxime Proxetil 200 Mg Tablet 0.5 Tab PO BID LAST DOSE GIVEN: DATE: TIME: NEXT DOSE DUE: DATE: TIME: Acidophilus (Lactobacillus Acidophilus) 1 Each Capsule 2 Each PO BID LAST DOSE GIVEN: DATE: TIME: NEXT DOSE DUE: DATE: TIME: Simvastatin 20 Mg Tablet 1 Tab PO QHS LAST DOSE GIVEN: DATE: TIME: NEXT DOSE DUE: DATE: TIME: Klor-Con M20 (Potassium Chloride) 20 Meq Tab.er.prt 1 Tab PO DAILY LAST DOSE GIVEN: DATE: TIME: NEXT DOSE DUE: DATE: TIME: Omeprazole 40 Mg Capsule.dr 1 Cap PO DAILY LAST DOSE GIVEN: DATE: TIME: NEXT DOSE DUE: DATE: TIME: Sinemet 25-100 Mg Tablet (Carbidopa/Levodopa) 1 Each Tablet 1 Tab PO QID LAST DOSE GIVEN: DATE: TIME: NEXT DOSE DUE: DATE: TIME: Calcium 500 + Vit D 200 Tablet (Calcium Carbonate/Vitamin D3) 1 Each Tablet 1 Each PO BID LAST DOSE GIVEN: DATE: TIME: NEXT DOSE DUE: DATE: TIME: Aspirin 81 Mg Tab.chew 81 Mg PO DAILY LAST DOSE GIVEN: DATE: TIME: NEXT DOSE DUE: DATE: TIME: Amlodipine Besylate 2.5 Mg Tablet 1 Tab PO DAILY LAST DOSE GIVEN: DATE: TIME: NEXT DOSE DUE: DATE: TIME: Allergies: Coded Allergies: I S O L A T I O N *CONTACT* (Verified Allergy, Unknown, 05/04/17) +MRSA 03/19/13 NKMA (Verified Allergy, Unknown, 05/04/17) VITALS Vital Signs Date Time Temp Pulse Resp B/P (MAP) Pulse Ox O2 Delivery O2 Flow Rate FiO2 05/04/17 13:36 77 153/66 05/04/17 10:39 97.2 18 97 Room Air Labs Laboratory Tests Test 05/03/17 11:14 05/03/17 16:25 05/03/17 20:46 05/04/17 07:41 White Blood Count 6.6 x10^3/uL (4.0-11.0) Red Blood Count 3.57 x10^6/uL (4.30-5.70) Hemoglobin 11.1 g/dL (13.0-17.5) Hematocrit 33.2 % (39.0-53.0) Mean Corpuscular Volume 93 fL (79-100) Mean Corpuscular Hemoglobin 31 pg (25-35) Mean Corpuscular Hemoglobin Concent 33 g/dL (31-37) Red Cell Distribution Width 15.2 % (11.5-14.5) Platelet Count 347 x10^3/uL (140-400) Neutrophils (%) (Auto) 62 % (31-73) Lymphocytes (%) (Auto) 25 % (24-48) Monocytes (%) (Auto) 9 % (0-9) Eosinophils (%) (Auto) 3 % (0-3) Basophils (%) (Auto) 1 % (0-3) Neutrophils # (Auto) 4.1 x10^3uL (1.8-7.7) Lymphocytes # (Auto) 1.7 x10^3/uL (1.0-4.8) Monocytes # (Auto) 0.6 x10^3/uL (0.0-1.1) Eosinophils # (Auto) 0.2 x10^3/uL (0.0-0.7) Basophils # (Auto) 0.0 x10^3/uL (0.0-0.2) Prothrombin Time 11.0 SEC (9.4-11.4) Prothromb Time International Ratio 1.1 (0.9-1.1) Activated Partial Thromboplast Time 29 SEC (23-33) Sodium Level 143 mmol/L (136-145) Potassium Level 4.8 mmol/L (3.5-5.1) Chloride Level 106 mmol/L (98-107) Carbon Dioxide Level 32 mmol/L (21-32) Anion Gap 5 (6-14) Blood Urea Nitrogen 32 mg/dL (8-26) Creatinine 1.2 mg/dL (0.7-1.3) Estimated GFR (Cockcroft-Gault) 57.1 BUN/Creatinine Ratio 27 (6-20) Glucose Level 144 mg/dL (70-99) Lactic Acid Level 1.5 mmol/L (0.4-2.0) Calcium Level 8.8 mg/dL (8.5-10.1) Magnesium Level 1.9 mg/dL (1.8-2.4) Total Bilirubin 0.2 mg/dL (0.2-1.0) Aspartate Amino Transf (AST/SGOT) 20 U/L (15-37) Alanine Aminotransferase (ALT/SGPT) 7 U/L (16-63) Alkaline Phosphatase 103 U/L (46-116) Creatine Kinase 23 U/L (39-308) Creatine Kinase MB (Mass) 0.8 ng/mL (0.0-3.6) Creatine Kinase MB Relative Index 3.5 % (0-4) Troponin I Quantitative < 0.017 ng/mL (0-0.055) KG-Ivt-O-Type Natriuretic Peptide 14358 pg/mL (0-449) Total Protein 6.6 g/dL (6.4-8.2) Albumin 2.6 g/dL (3.4-5.0) Albumin/Globulin Ratio 0.7 (1.0-1.7) Glucose (Fingerstick) 263 mg/dL (70-99) 308 mg/dL (70-99) 105 mg/dL (70-99) Test 05/04/17 11:54 Glucose (Fingerstick) 262 mg/dL (70-99) NUNU QUINONEZ Jr, MD 05/05/17 0650: CONSULT Allergies: Coded Allergies: I S O L A T I O N *CONTACT* (Verified Allergy, Unknown, 05/04/17) +MRSA 03/19/13 NKMA (Verified Allergy, Unknown, 05/04/17) Assessment/Plan The patient was seen by Angela Rosenthal APRN and I have reviewed her findings and plan and agree with above. Due to staffing constraints, we did not have an attending available on this day to see the patient. Problems: ANGELA ROSENTHAL APRN May 04, 2017 15:04 NUNU QUINONEZ Jr, MD May 05, 2017 06:50
[2017-05-04 15:24] VITALS: BP 104/52
[2017-05-04 19:52] VITALS: BP 149/69
[2017-05-04] MEDS: SACUBITRIL/VALSARTAN 24/26MG TABLET. PO SCH (20:53)
[2017-05-04] MEDS: SIMVASTATIN 20 MG TABLET PO SCH (20:53)
[2017-05-04] MEDS: VANCOMYCIN 750 MG in IV NORMAL SALINE 250ML 250 ML IV SCH (20:54)
--- NOTE | 2017-05-04 22:12 | HP ---
ADMIT DATE: 05/03/2017 HISTORY OF PRESENT ILLNESS: An 86-year-old male came in. He has been seen several times over at the [place]. He has a history of severe 3-vessel coronary artery disease as well as ischemic cardiomyopathy and multiple other problems. The patient was seen at the [place]. CT scan showed a large left pleural effusion. The patient was recommended to see his optimization analyst at [facility] and also a thoracic surgeon to help drain this. He has osteomyelitis of his foot and was requiring amputation when these were all found out at the [place]. The patient also may have some heart failure. He was admitted for further evaluation of his pleural effusion, his osteomyelitis, type 2 diabetes in light. 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 PAST SURGICAL HISTORY: Pacemaker placement, appendectomy, hernia repair. FAMILY HISTORY: Noncontributory. SOCIAL HISTORY: The patient denies smoking, alcohol or drug use. ALLERGIES: The patient has no known allergies. REVIEW OF SYSTEMS: Denies fever, chills, does have shortness of breath, generalized cough, very mild. Denies abdominal pain, just very frail appearing, not eating well, of course pain in his feet from the diabetic neuropathy is there. 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 PHYSICAL EXAMINATION: GENERAL: This is an ill-appearing white male, looking frail, has some exophthalmus and drooping of the lower eyelids. VITAL SIGNS: Blood pressure 170/80, respiratory rate 20, pulse 80, afebrile. HEENT: The patient's head was atraumatic, normocephalic. Eyes: PERRLA without jaundice. Mouth and throat were normal. NECK: Supple, without JVD, carotid bruit or thyromegaly. LUNGS: Diminished throughout, poor movement of air. CARDIOVASCULAR: Regular sinus rhythm, S1, S2, with 1/6 systolic ejection murmur. ABDOMEN: Soft, nontender, no rebounding or guarding. Positive bowel sounds, no hepatosplenomegaly was noted. EXTREMITIES: No clubbing, cyanosis, nor edema. The patient has marked disfigurement of the toes on the right foot consistent with the patient's history of amputations of his toes. NEUROLOGIC: Pleasant gentleman with scoliosis to the spine. He is alert and oriented x 3 and a very soft spoken. LABORATORY DATA: Echocardiogram done a year or two ago shows 30-35% ejection fraction. IMPRESSION: Chronic systolic congestive heart failure, pleural effusion, severe 3-vessel coronary artery disease, sick sinus syndrome, hypertension, osteomyelitis of the right foot, ischemic cardiomyopathy, type 2 diabetes, poorly controlled, hyperlipidemia. The patient will be monitored carefully, make further evaluation on him as indicated, have Cardiology review and continue on vancomycin for the osteomyelitis. GENEVIEVE MORALES MD DR: IVON/my JOB#: [id number] / [id number]
[2017-05-04 22:41] VITALS: BP 130/68
[2017-05-05 05:08] VITALS: BP 143/69
[2017-05-05 06:55] LABS: CALCIUM 8.9 mg/dL (8.5-10.1); GFR 70.5; POTASSIUM 4.6 mmol/L (3.5-5.1)
[2017-05-05] MEDS: POTASSIUM CHLORIDE 20 MEQ TABLET.ER. PO SCH (07:46)
[2017-05-05] MEDS: INSULIN ASPART 300 UNITS/3 ML INSULN.PEN SQ SCH ×3 (08:25→17:37)
--- NOTE | 2017-05-05 08:41 | CARD ---
MR#: [id number] Date of Study: 05/04/2017 Ordering Physician: SAM ROSENTHAL, Referring Physician: GENEVIEVE MORALES, [place]: Kika Baca [facility] APPROVED REPORT EXAM: Two-dimensional and M-mode echocardiogram with Doppler and color Doppler. Other Information Quality : Technically Limited INDICATION CAD Congestive Heart Failure 2D DIMENSIONS IVSd0.8 (0.7-1.1cm)Aortic Root(2D)2.8 (2.0-3.7cm) LVDd5.1 (3.9-5.9cm)LVOT Diameter1.8 (1.8-2.4cm) PWd0.9 (0.7-1.1cm)LVDs4.5 (2.5-4.0cm) FS (%) 10.0 %SV30.2 ml LVEF(%)20.0 (>50%) Aortic Valve AoV Peak Tan.1.1cm/Mirna Peak GR.5.0mmHg Tricuspid Valve TR P. [id number] TR Peak [id number] LEFT VENTRICLE The left ventricle is normal size. There is normal left ventricular wall thickness. The ejection frac tion is severely impaired. The estimated ejection fraction is 20%. The left ventricular diastolic fun ction could not be determined. RIGHT VENTRICLE The right ventricle is normal size. The right ventricular systolic function is normal. There is a pac emaker or defibrillator lead seen in the right ventricle. ATRIA The left atrium is moderately to severely dilated. The right atrium is moderately dilated. AORTIC VALVE The aortic valve is trileaflet.The aortic valve is mildly to moderately sclerotic. There is trace aor tic regurgitation. There is no significant aortic valvular stenosis. MITRAL VALVE The mitral valve is moderately calcified. Mitral annular calcification is moderate to severe. There i s no mitral valve stenosis. There is mild to moderate mitral regurgitation. TRICUSPID VALVE The tricuspid valve leaflets are calcified. There is mild tricuspid regurgitation. The estimated pulm onary artery pressure is 32 mmHg. PULMONIC VALVE The pulmonic valve is not visualized. GREAT VESSELS The aortic root is normal in size. The IVC is normal in size and collapses >50% with inspiration. PERICARDIAL EFFUSION There is a pleural effusion. There is a rim of pericardial fluid. Critical Notification Critical Value: No <Conclusion> The left ventricle is normal size. There is normal left ventricular wall thickness. The ejection fraction is severely impaired. The estimated ejection fraction is 20%. The left ventricular diastolic function could not be determined. There is a pacemaker or defibrillator lead seen in the right ventricle. The left atrium is moderately to severely dilated. The right atrium is moderately dilated. The aortic valve is mildly to moderately sclerotic. There is mild to moderate mitral regurgitation. There is mild tricuspid regurgitation. The estimated pulmonary artery pressure is 32 mmHg. There is a pleural effusion. Signed by : Neftaly Bar JR, MD Electronically Approved : 05/05/2017 08:40:47
[2017-05-05 08:45] VITALS: BP_SYST 109; BP_SYST 79; BP_DIAS 47; BP_DIAS 62
[2017-05-05] MEDS: ASPIRIN 81 MG TAB.CHEW PO SCH (08:49)
[2017-05-05] MEDS: LACTOBACILLUS RHAMNOSUS GG 1 CAPSULE. PO SCH ×2 (08:49→20:12)
[2017-05-05] MEDS: CALCIUM CARB/VIT D3 500/200 TABLET PO SCH ×2 (08:50→20:13)
[2017-05-05] MEDS: CARBIDOPA/LEVODOPA 25/100MG TABLET PO SCH ×4 (08:50→20:13)
[2017-05-05] MEDS: PANTOPRAZOLE 40 MG TABLET. PO SCH (08:51)
[2017-05-05] MEDS: SACUBITRIL/VALSARTAN 24/26MG TABLET. PO SCH ×2 (09:00→20:13)
[2017-05-05 11:20] VITALS: BP 113/64
--- NOTE | 2017-05-05 11:57 | PDOC ---
PROGRESS NOTES Diagnosis Problem Problems Medical Problems: (1) Diabetic ulcer of right foot Status: Acute (2) SOB (shortness of breath) Status: Acute Assessment Ischemic cardiomyopathy. He has had a decline in his ejection fraction. Fortunately, his previous chest x-ray from 2 days ago was clear. I will stop his amlodipine. We will continue Entresto. He is also on hydralazine. We may want to consider a low-dose beta-roscoe if his blood pressure will tolerate. Given his advanced age and debilitated state, he is not a good candidate for prophylactic defibrillator implantation. CHF, chronic, systolic. As above, his chest x-ray was clear. He seems to be euvolemic at this point in time. We will continue with the present medications. Coronary artery disease. He is not having any angina. Sick sinus syndrome. Pacemaker appears to be functioning normally. Problems: Subjective We are seeing him due to ischemic cardiomyopathy, coronary artery disease, and chronic systolic heart failure. S: He denies chest pain, dyspnea, palpitations, syncope, or lower extremity edema. The wound care nurse has been checking his feet. Objective Vital Signs Date Time Temp Pulse Resp B/P (MAP) Pulse Ox O2 Delivery O2 Flow Rate FiO2 05/05/17 11:20 98.0 60 16 113/64 (80) 98 Room Air Intake and Output 05/05/17 07:00 Intake Total 1245 ml Balance 1245 ml Intake Oral 940 ml IV Total 305 ml # Voids 4 Abdomen: Normal bowel sounds, Soft, No tenderness Heart: Regular rate, Normal S1, Normal S2, No murmurs Extremities: No clubbing, No cyanosis, No edema, Normal pulses, No tenderness/ swelling General: Alert, Oriented X3, Cooperative, No acute distress HEENT: Atraumatic, EOMI, Mucous membr. moist/pink Lungs: Clear to auscultation, Normal air movement Neck: No JVD, +2 carotid pulse wo bruit Neuro: Normal speech, Strength at 5/5 X4 ext, Cranial nerves 3-12 NL Psych/Mental Status: Mental status NL, Mood NL Skin: No rashes Review of Relevant I have reviewed the following items tasneem (where applicable) has been applied. Labs Laboratory Tests Test 05/03/17 16:25 05/03/17 20:46 05/04/17 07:41 05/04/17 11:54 Glucose (Fingerstick) 263 mg/dL (70-99) 308 mg/dL (70-99) 105 mg/dL (70-99) 262 mg/dL (70-99) Test 05/04/17 16:40 05/04/17 20:23 05/05/17 06:10 05/05/17 07:22 Glucose (Fingerstick) 200 mg/dL (70-99) 189 mg/dL (70-99) 157 mg/dL (70-99) Sodium Level 138 mmol/L (136-145) Potassium Level 4.6 mmol/L (3.5-5.1) Chloride Level 104 mmol/L (98-107) Carbon Dioxide Level 30 mmol/L (21-32) Anion Gap 4 (6-14) Blood Urea Nitrogen 26 mg/dL (8-26) Creatinine 1.0 mg/dL (0.7-1.3) Estimated GFR (Cockcroft-Gault) 70.5 Glucose Level 180 mg/dL (70-99) Calcium Level 8.9 mg/dL (8.5-10.1) Microbiology 05/03/17 Blood Culture - Preliminary, Resulted NO GROWTH AFTER 2 DAYS 05/03/17 Aerobic Culture - Preliminary, Resulted 05/03/17 Aerobic Culture - Preliminary, Resulted 05/03/17 Gram Stain - Final, Resulted 05/03/17 Gram Stain Result 1 (NICO) - Final, Resulted 05/03/17 Gram Stain Result 2 (NICO) - Final, Resulted Medications Current Medications Sodium Chloride (Normal Saline Flush) 10 ml QSHIFT PRN IV AFTER MEDS AND BLOOD DRAWS; Start 05/03/17 at 11:15 Ceftriaxone Sodium 1 gm/ Sodium Chloride 50 ml @ 100 mls/hr 1X ONCE IV ; Start 05/03/17 at 13:15; Stop 05/03/17 at 13:44; Status DC Ceftriaxone Sodium (Rocephin) 1 gm Q24H IVP Last administered on 05/03/17at 14: 33; Start 05/03/17 at 14:00; Stop 05/03/17 at 18:16; Status DC Lactobacillus Rhamnosus (Culturelle) 1 cap BID PO ; Start 05/03/17 at 21:00; Status Cancel Influenza Virus Vaccine Quadrival (Fluarix Quad 7396-4915 Syringe) 0.5 ml ONCE ONCE VAX IM Last administered on 05/04/17at 12:55; Start 05/04/17 at 09:00; Stop 05/04/17 at 09:01; Status DC Amlodipine Besylate (Norvasc) 2.5 mg DAILY PO Last administered on 05/04/17at 09 :03; Start 05/04/17 at 09:00; Stop 05/05/17 at 08:54; Status DC Aspirin (Children'S Aspirin) 81 mg DAILY PO Last administered on 05/05/17at 08: 49; Start 05/04/17 at 09:00 Calcium/Vitamin D (Oscal D 500mg/ 200uts) 1 tab BID PO Last administered on at 08:50; Start 05/03/17 at 21:00 Carbidopa/Levodopa (Sinemet 25/100) 1 tab QID PO Last administered on at 08:50; Start 05/03/17 at 21:00 Cefpodoxime Proxetil (Vantin) 100 mg BID PO ; Start 05/03/17 at 21:00; Stop at 21:00; Status DC Potassium Chloride (Klor-Con) 20 meq DAILY PO ; Start 05/04/17 at 09:00 Simvastatin (Zocor) 20 mg QHS PO Last administered on 05/04/17at 20:53; Start at 21:00 Non-Formulary Medication 5 unit TIDAC SQ ; Start 05/04/17 at 07:30; Stop at 07:30; Status DC Lactobacillus Rhamnosus (Culturelle) 1 cap BID PO Last administered on at 08:49; Start 05/03/17 at 21:00 Non-Formulary Medication 5 unit HS PRN SQ FOR BLOOD SUGAR >200; Start 05/03/17 at 18:15; Stop 05/03/17 at 19:02; Status DC Pantoprazole Sodium (Protonix) 40 mg DAILY PO Last administered on 05/05/17at 08 :51; Start 05/04/17 at 09:00 Vancomycin HCl (Vanco Per Pharmacy) 1 each PRN DAILY PRN MC SEE COMMENTS Last administered on 05/03/17at 19:26; Start 05/03/17 at 18:15 Hydralazine HCl (Apresoline) 10 mg TID PO Last administered on 05/04/17at 13:36 ; Start 05/03/17 at 21:00; Stop 05/04/17 at 15:21; Status DC Insulin Aspart (NovoLOG) FSBS 150-2,00: 3 UNITS F... TIDAC SQ Last administered on 05/05/17at 08:25; Start 05/04/17 at 07:30 Vancomycin HCl 1.25 gm/Sodium Chloride 250 ml @ 166.667 mls/hr 1X ONCE IV Last administered on 05/03/17at 21:42; Start 05/03/17 at 21:00; Stop 05/03/17 at 22:29; Status DC Vancomycin HCl 750 mg/Sodium Chloride 250 ml @ 250 mls/hr Q24H IV Last administered on 05/04/17at 20:54; Start 05/04/17 at 21:00 Vancomycin HCl 1 each 1X ONCE MC ; Start 05/05/17 at 20:30; Stop 05/05/17 at 20 :31 Sacubitril/ Valsartan (Entresto 24 Mg-26 Mg) 1 tab BID PO Last administered on 05/04/17at 20:53; Start 05/04/17 at 21:00 Active Scripts Active Reported Humulin R (Insulin Regular, Human) 100 Unit/1 Ml Vial 3-5 Unit IJ TIDAC LAST DOSE GIVEN: DATE: TIME: NEXT DOSE DUE: DATE: TIME: Humulin N (Nph, Human Insulin Isophane) 100 Unit/1 Ml Vial 5 Unit SQ HS PRN LAST DOSE GIVEN: DATE: TIME: NEXT DOSE DUE: DATE: TIME: Cefpodoxime Proxetil 200 Mg Tablet 0.5 Tab PO BID LAST DOSE GIVEN: DATE: TIME: NEXT DOSE DUE: DATE: TIME: Acidophilus (Lactobacillus Acidophilus) 1 Each Capsule 2 Each PO BID LAST DOSE GIVEN: DATE: TIME: NEXT DOSE DUE: DATE: TIME: Simvastatin 20 Mg Tablet 1 Tab PO QHS LAST DOSE GIVEN: DATE: TIME: NEXT DOSE DUE: DATE: TIME: Klor-Con M20 (Potassium Chloride) 20 Meq Tab.er.prt 1 Tab PO DAILY LAST DOSE GIVEN: DATE: TIME: NEXT DOSE DUE: DATE: TIME: Omeprazole 40 Mg Capsule.dr 1 Cap PO DAILY LAST DOSE GIVEN: DATE: TIME: NEXT DOSE DUE: DATE: TIME: Sinemet 25-100 Mg Tablet (Carbidopa/Levodopa) 1 Each Tablet 1 Tab PO QID LAST DOSE GIVEN: DATE: TIME: NEXT DOSE DUE: DATE: TIME: Calcium 500 + Vit D 200 Tablet (Calcium Carbonate/Vitamin D3) 1 Each Tablet 1 Each PO BID LAST DOSE GIVEN: DATE: TIME: NEXT DOSE DUE: DATE: TIME: Aspirin 81 Mg Tab.chew 81 Mg PO DAILY LAST DOSE GIVEN: DATE: TIME: NEXT DOSE DUE: DATE: TIME: Amlodipine Besylate 2.5 Mg Tablet 1 Tab PO DAILY LAST DOSE GIVEN: DATE: TIME: NEXT DOSE DUE: DATE: TIME: Vitals/I & O Vital Sign - Last 24 Hours 05/04/17 05/04/17 05/04/17 05/04/17 13:36 15:24 19:15 19:52 Temp 97.1 97.3 Pulse 77 60 64 Resp 18 20 B/P (MAP) 153/66 104/52 (69) 149/69 (95) Pulse Ox 98 99 O2 Delivery Room Air Room Air Room Air 05/04/17 05/04/17 05/05/17 05/05/17 20:53 22:41 05:08 08:30 Temp 97.4 97.6 Pulse 64 66 63 Resp 18 20 B/P (MAP) 149/69 130/68 (88) 143/69 (93) Pulse Ox 98 97 O2 Delivery Room Air Room Air Room Air 05/05/17 05/05/17 05/05/17 08:45 09:00 11:20 Temp 98.0 Pulse 61 61 60 Resp 16 16 B/P (MAP) 79/47 (58) 109/62 113/64 (80) 109/62 (78) Pulse Ox 98 98 O2 Delivery Room Air Room Air Intake and Output 05/04/17 05/04/17 05/05/17 15:00 23:00 07:00 Intake Total 250 ml 845 ml 150 ml Balance 250 ml 845 ml 150 ml NUNU QUINONEZ Jr, MD May 05, 2017 11:57
[2017-05-05 14:39] VITALS: BP 122/52
[2017-05-05 19:06] VITALS: BP 97/56
[2017-05-05] MEDS: SIMVASTATIN 20 MG TABLET PO SCH (20:12)
[2017-05-05 21:02] LABS: VANC TR 14.2 mcg/mL (10.0-20.0)
[2017-05-05] MEDS: VANCOMYCIN 750 MG in IV NORMAL SALINE 250ML 250 ML IV SCH (21:35)
[2017-05-05 22:47] VITALS: BP 93/51
--- NOTE | 2017-05-06 00:17 | PN ---
DATE: 05/05/2017 SUBJECTIVE: The patient is an 86-year-old gentleman in with osteomyelitis of his right foot as well as multiple other medical problems. The patient; otherwise, showed an ejection fraction of only 20%, moderate mitral regurgitation, multiple problems there. He is being seen by [facility]. We will have to continue to monitor. He is still on IV vancomycin for his osteomyelitis that he has. OBJECTIVE: VITAL SIGNS: Otherwise, blood pressure right now down to 80/47 after medication, respiratory rate 16, pulse 60, afebrile. Weight up, pound and a half. GENERAL: The patient is alert, baseline. LUNGS: Shows crackles in the bases. CARDIOVASCULAR: Regular sinus rhythm with a 2/6 systolic ejection murmur. ABDOMEN: Soft, nontender. EXTREMITIES: No clubbing, cyanosis or edema. NEUROLOGIC: Baseline pleasant gentleman. PLAN: We will continue to monitor the patient accordingly, make further evaluation on him as indicated with Cardiology, diurese, make further assessment as noted. IMPRESSION: Therefore, acute on top of chronic diastolic heart failure, pleural effusion, severe ischemic cardiomyopathy, type 2 diabetes, osteomyelitis of the right foot. GENEVIEVE MORALES MD DR: IVON/my JOB#: [id number] / [id number]
[2017-05-06 05:15] VITALS: BP 143/78
[2017-05-06] MEDS: INSULIN ASPART 300 UNITS/3 ML INSULN.PEN SQ SCH ×3 (07:30→17:15)
[2017-05-06] MEDS: SACUBITRIL/VALSARTAN 24/26MG TABLET. PO SCH ×2 (08:26→21:16)
[2017-05-06] MEDS: ASPIRIN 81 MG TAB.CHEW PO SCH (08:27)
[2017-05-06] MEDS: POTASSIUM CHLORIDE 20 MEQ TABLET.ER. PO SCH (08:27)
[2017-05-06] MEDS: CALCIUM CARB/VIT D3 500/200 TABLET PO SCH ×2 (08:27→21:15)
[2017-05-06] MEDS: CARBIDOPA/LEVODOPA 25/100MG TABLET PO SCH ×4 (08:27→21:15)
[2017-05-06] MEDS: PANTOPRAZOLE 40 MG TABLET. PO SCH (08:27)
[2017-05-06] MEDS: LACTOBACILLUS RHAMNOSUS GG 1 CAPSULE. PO SCH ×2 (08:27→21:15)
[2017-05-06 11:04] VITALS: BP 153/82
--- NOTE | 2017-05-06 13:24 | PDOC ---
SAM ROSENTHAL [employer] OPER[employer] 05/06/17 1324: PROGRESS NOTES Diagnosis Problem Problems Medical Problems: (1) Diabetic ulcer of right foot Status: Acute (2) SOB (shortness of breath) Status: Acute Assessment Problems We are seeing the patient for congestive heart failure Congestive heart failure, chronic, systolic with EF of 20%. Clinically compensated. Tolerating Entresto a 1 tablet twice a day. Severe 3 vessel coronary artery disease being treated with medical management. History of [facility]. Refused further catheterization and bypass surgery. We will continue optimal medical therapy Sick sinus syndrome s/p permanent pacemaker implantation. Hypertension, controlled, continue current medication. If his blood pressure runs higher we could increase him to the higher dose of Entresto twice a day. Ischemic cardiomyopathy, At this point he would not be a good candidate for an ICD implantation. Hyperlipidemia. His goal LDL is < 70 mg/dL. Continue statin. Problems: Subjective He is sitting up in bed today and feeling better. He denies any chest pain, shortness of breath or palpitations. Objective Vital Signs Date Time Temp Pulse Resp B/P (MAP) Pulse Ox O2 Delivery O2 Flow Rate FiO2 05/06/17 11:04 97.5 64 20 153/82 (105) 99 Room Air Intake and Output 05/06/17 07:00 Intake Total 1165 ml Output Total 100 ml Balance 1065 ml Intake Oral 880 ml IV Total 285 ml Output Urine Total 100 ml # Voids 2 Abdomen: Normal bowel sounds, Soft, No tenderness Heart: Regular rate, Normal S1, Normal S2, No murmurs Extremities: No edema, Normal pulses General: Alert, Oriented X3, Cooperative Lungs: Clear to auscultation, Normal air movement Psych/Mental Status: Mental status NL, Mood NL Review of Relevant I have reviewed the following items tasneem (where applicable) has been applied. Labs Laboratory Tests Test 05/04/17 16:40 05/04/17 20:23 05/05/17 06:10 05/05/17 07:22 Glucose (Fingerstick) 200 mg/dL (70-99) 189 mg/dL (70-99) 157 mg/dL (70-99) Sodium Level 138 mmol/L (136-145) Potassium Level 4.6 mmol/L (3.5-5.1) Chloride Level 104 mmol/L (98-107) Carbon Dioxide Level 30 mmol/L (21-32) Anion Gap 4 (6-14) Blood Urea Nitrogen 26 mg/dL (8-26) Creatinine 1.0 mg/dL (0.7-1.3) Estimated GFR (Cockcroft-Gault) 70.5 Glucose Level 180 mg/dL (70-99) Calcium Level 8.9 mg/dL (8.5-10.1) Test 05/05/17 09:40 05/05/17 12:03 05/05/17 16:36 05/05/17 18:28 Nasal Screen MRSA (PCR) Negative (Negative) Glucose (Fingerstick) 196 mg/dL (70-99) 275 mg/dL (70-99) Vancomycin Level Trough 14.2 mcg/mL (10.0-20.0) Vancomycin Last Dose Date 05/04/17 Vancomycin Last Dose Time 2100 Test 05/05/17 19:21 05/06/17 07:29 05/06/17 11:18 Glucose (Fingerstick) 225 mg/dL (70-99) 120 mg/dL (70-99) 194 mg/dL (70-99) Microbiology 05/03/17 Blood Culture - Preliminary, Resulted NO GROWTH AFTER 3 DAYS 05/03/17 Aerobic Culture - Final, Complete 05/03/17 Aerobic Culture - Final, Complete 05/03/17 Antimicrobic Susceptibility - Final, Complete 05/03/17 Gram Stain - Final, Complete 05/03/17 Gram Stain Result 1 (NICO) - Final, Complete 05/03/17 Gram Stain Result 2 (NICO) - Final, Complete Medications Current Medications Sodium Chloride (Normal Saline Flush) 10 ml QSHIFT PRN IV AFTER MEDS AND BLOOD DRAWS; Start 05/03/17 at 11:15 Ceftriaxone Sodium 1 gm/ Sodium Chloride 50 ml @ 100 mls/hr 1X ONCE IV ; Start 05/03/17 at 13:15; Stop 05/03/17 at 13:44; Status DC Ceftriaxone Sodium (Rocephin) 1 gm Q24H IVP Last administered on 05/03/17at 14: 33; Start 05/03/17 at 14:00; Stop 05/03/17 at 18:16; Status DC Lactobacillus Rhamnosus (Culturelle) 1 cap BID PO ; Start 05/03/17 at 21:00; Status Cancel Influenza Virus Vaccine Quadrival (Fluarix Quad 1202-0492 Syringe) 0.5 ml ONCE ONCE VAX IM Last administered on 05/04/17at 12:55; Start 05/04/17 at 09:00; Stop 05/04/17 at 09:01; Status DC Amlodipine Besylate (Norvasc) 2.5 mg DAILY PO Last administered on 05/04/17 09 :03; Start 05/04/17 at 09:00; Stop 05/05/17 at 08:54; Status DC Aspirin (Children'S Aspirin) 81 mg DAILY PO Last administered on 05/06/17at 08:27 ; Start 05/04/17 at 09:00 Calcium/Vitamin D (Oscal D 500mg/ 200uts) 1 tab BID PO Last administered on 05/06 08:27; Start 05/03/17 at 21:00 Carbidopa/Levodopa (Sinemet 25/100) 1 tab QID PO Last administered on 05/06/17at 12:15; Start 05/03/17 at 21:00 Cefpodoxime Proxetil (Vantin) 100 mg BID PO ; Start 05/03/17 at 21:00; Stop at 21:00; Status DC Potassium Chloride (Klor-Con) 20 meq DAILY PO Last administered on 05/06/17 08: 27; Start 05/04/17 at 09:00 Simvastatin (Zocor) 20 mg QHS PO Last administered on 05/05/17at 20:12; Start at 21:00 Non-Formulary Medication 5 unit TIDAC SQ ; Start 05/04/17 at 07:30; Stop at 07:30; Status DC Lactobacillus Rhamnosus (Culturelle) 1 cap BID PO Last administered on 08:27; Start 05/03/17 at 21:00 Non-Formulary Medication 5 unit HS PRN SQ FOR BLOOD SUGAR >200; Start 05/03/17 at 18:15; Stop 05/03/17 at 19:02; Status DC Pantoprazole Sodium (Protonix) 40 mg DAILY PO Last administered on 05/06/17at 08: 27; Start 05/04/17 at 09:00 Vancomycin HCl (Vanco Per Pharmacy) 1 each PRN DAILY PRN MC SEE COMMENTS Last administered on 05/03/17at 19:26; Start 05/03/17 at 18:15 Hydralazine HCl (Apresoline) 10 mg TID PO Last administered on 05/04/17at 13:36 ; Start 05/03/17 at 21:00; Stop 05/04/17 at 15:21; Status DC Insulin Aspart (NovoLOG) FSBS 150-2,00: 3 UNITS F... TIDAC SQ Last administered on 05/06/17at 12:15; Start 05/04/17 at 07:30 Vancomycin HCl 1.25 gm/Sodium Chloride 250 ml @ 166.667 mls/hr 1X ONCE IV Last administered on 05/03/17at 21:42; Start 05/03/17 at 21:00; Stop 05/03/17 at 22:29; Status DC Vancomycin HCl 750 mg/Sodium Chloride 250 ml @ 250 mls/hr Q24H IV Last administered on 05/05/17at 21:35; Start 05/04/17 at 21:00 Vancomycin HCl 1 each 1X ONCE MC Last administered on 05/05/17at 20:30; Start 05/05/17 at 20:30; Stop 05/05/17 at 20:31; Status DC Sacubitril/ Valsartan (Entresto 24 Mg-26 Mg) 1 tab BID PO Last administered on 05/06/17at 08:26; Start 05/04/17 at 21:00 Active Scripts Active Reported Humulin R (Insulin Regular, Human) 100 Unit/1 Ml Vial 3-5 Unit IJ TIDAC LAST DOSE GIVEN: DATE: TIME: NEXT DOSE DUE: DATE: TIME: Humulin N (Nph, Human Insulin Isophane) 100 Unit/1 Ml Vial 5 Unit SQ HS PRN LAST DOSE GIVEN: DATE: TIME: NEXT DOSE DUE: DATE: TIME: Cefpodoxime Proxetil 200 Mg Tablet 0.5 Tab PO BID LAST DOSE GIVEN: DATE: TIME: NEXT DOSE DUE: DATE: TIME: Acidophilus (Lactobacillus Acidophilus) 1 Each Capsule 2 Each PO BID LAST DOSE GIVEN: DATE: TIME: NEXT DOSE DUE: DATE: TIME: Simvastatin 20 Mg Tablet 1 Tab PO QHS LAST DOSE GIVEN: DATE: TIME: NEXT DOSE DUE: DATE: TIME: Klor-Con M20 (Potassium Chloride) 20 Meq Tab.er.prt 1 Tab PO DAILY LAST DOSE GIVEN: DATE: TIME: NEXT DOSE DUE: DATE: TIME: Omeprazole 40 Mg Capsule.dr 1 Cap PO DAILY LAST DOSE GIVEN: DATE: TIME: NEXT DOSE DUE: DATE: TIME: Sinemet 25-100 Mg Tablet (Carbidopa/Levodopa) 1 Each Tablet 1 Tab PO QID LAST DOSE GIVEN: DATE: TIME: NEXT DOSE DUE: DATE: TIME: Calcium 500 + Vit D 200 Tablet (Calcium Carbonate/Vitamin D3) 1 Each Tablet 1 Each PO BID LAST DOSE GIVEN: DATE: TIME: NEXT DOSE DUE: DATE: TIME: Aspirin 81 Mg Tab.chew 81 Mg PO DAILY LAST DOSE GIVEN: DATE: TIME: NEXT DOSE DUE: DATE: TIME: Amlodipine Besylate 2.5 Mg Tablet 1 Tab PO DAILY LAST DOSE GIVEN: DATE: TIME: NEXT DOSE DUE: DATE: TIME: Vitals/I & O Vital Sign - Last 24 Hours 05/05/17 05/05/17 05/05/17 05/05/17 14:39 19:06 19:30 20:13 Temp 97.2 Pulse 68 65 65 Resp 16 18 B/P (MAP) 122/52 (75) 97/56 (70) 97/56 Pulse Ox 97 99 O2 Delivery Room Air Room Air Room Air 05/05/17 05/06/17 05/06/17 05/06/17 22:47 05:15 08:00 08:26 Temp 97.4 97.6 Pulse 68 64 64 Resp 20 18 B/P (MAP) 93/51 (65) 143/78 (99) 143/78 Pulse Ox 100 99 O2 Delivery Room Air Room Air Room Air 05/06/17 11:04 Temp 97.5 Pulse 64 Resp 20 B/P (MAP) 153/82 (105) Pulse Ox 99 O2 Delivery Room Air Intake and Output 05/05/17 05/05/17 05/06/17 15:00 23:00 07:00 Intake Total 430 ml 585 ml 150 ml Output Total 100 ml Balance 330 ml 585 ml 150 ml NUNU QUINONEZ Jr, MD 05/07/17 0632: PROGRESS NOTES Assessment The patient was seen by Sam Rosenthal APRN and I have reviewed her findings and plan and agree with above. Due to staffing constraints, we did not have an attending available on this day to see the patient. Problems: SAM ROSENTHAL APRN May 06, 2017 13:24 NUNU QUINONEZ Jr, MD May 07, 2017 06:32
[2017-05-06 15:43] VITALS: BP 155/88
[2017-05-06 19:34] VITALS: BP 105/45
[2017-05-06] MEDS: SIMVASTATIN 20 MG TABLET PO SCH (21:15)
[2017-05-06] MEDS: VANCOMYCIN 750 MG in IV NORMAL SALINE 250ML 250 ML IV SCH (21:15)
[2017-05-06 23:07] VITALS: BP 120/46
[2017-05-07 05:33] VITALS: BP 125/46
[2017-05-07 07:43] LABS: BASO % 0 % (0-3); EOS # 0.3 x10^3/uL (0.0-0.7); EOS % 4 % (0-3); HEMATOCRIT 32.7 % (39.0-53.0); HEMOGLOBIN 10.9 g/dL (13.0-17.5); LYMPH # 1.4 x10^3/uL (1.0-4.8); LYMPH % 17 % (24-48); MEAN CORPUSCULAR HEMOGLOBIN 31 pg (25-35); MEAN CORPUSCULAR HGB CONC 33 g/dL (31-37); MEAN CORPUSCULAR VOLUME 92 fL (79-100); MONO # 0.6 x10^3/uL (0.0-1.1); MONO % 7 % (0-9); NEUT % 72 % (31-73); PLATELET COUNT 311 x10^3/uL (140-400); RED BLOOD COUNT 3.54 x10^6/uL (4.30-5.70); RED CELL DISTRIBUTION WIDTH 15.2 % (11.5-14.5); WHITE BLOOD COUNT 8.4 x10^3/uL (4.0-11.0)
[2017-05-07 07:51] LABS: ALBUMIN/GLOBULIN RATIO 0.5 (1.0-1.7); CALCIUM 8.4 mg/dL (8.5-10.1); CREATININE 1.1 mg/dL (0.7-1.3); GFR 63.2; TOTAL BILIRUBIN 0.2 mg/dL (0.2-1.0); TOTAL PROTEIN 5.9 g/dL (6.4-8.2)
[2017-05-07] MEDS: CALCIUM CARB/VIT D3 500/200 TABLET PO SCH (08:16)
[2017-05-07] MEDS: CARBIDOPA/LEVODOPA 25/100MG TABLET PO SCH ×2 (08:16→12:51)
[2017-05-07] MEDS: PANTOPRAZOLE 40 MG TABLET. PO SCH (08:16)
[2017-05-07] MEDS: POTASSIUM CHLORIDE 20 MEQ TABLET.ER. PO SCH (08:16)
[2017-05-07] MEDS: LACTOBACILLUS RHAMNOSUS GG 1 CAPSULE. PO SCH (08:16)
[2017-05-07] MEDS: ASPIRIN 81 MG TAB.CHEW PO SCH (08:17)
[2017-05-07] MEDS: SACUBITRIL/VALSARTAN 24/26MG TABLET. PO SCH (08:17)
[2017-05-07] MEDS: INSULIN ASPART 300 UNITS/3 ML INSULN.PEN SQ SCH ×2 (08:23→12:19)
--- NOTE | 2017-05-07 10:07 | PN ---
DATE: 05/06/2017 SUBJECTIVE: The patient in with ____ osteomyelitis of his right foot as well as heart failure. He is being seen by Cardiology for the latter. Otherwise, he says he is feeling better. OBJECTIVE: VITAL SIGNS: Blood pressure 140/70, respirations 18, pulse 64, afebrile. LUNGS: Diminished throughout, decreased breath sounds. CARDIOVASCULAR: Regular sinus rhythm, S1, S2. A 1/6 systolic ejection murmur. ABDOMEN: Soft, nontender. EXTREMITIES: No clubbing, cyanosis, or edema. 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 Also massive pleural effusion in the left lower lobe. We will put a PICC line in him today to get the IV vancomycin in him to treat that osteomyelitis and see what Cardiology wants to do with that pleural effusion. IMPRESSION: Acute on top of chronic diastolic heart failure, left pleural effusion, and osteomyelitis of the right foot. GENEVIEVE MORALES MD DR: IVON/my JOB#: [id number] / [id number]
--- NOTE | 2017-05-07 13:04 | PDOC ---
PROGRESS NOTES Diagnosis Problem Problems Medical Problems: (1) Diabetic ulcer of right foot Status: Acute (2) SOB (shortness of breath) Status: Acute Assessment CHF, chronic, systolic. He seems to be about euvolemic at this point in time. He is tolerating the resumption of Entresto. He does have a pleural effusion. Thoracentesis may help improve his breathing. I recommend he continue on the present medications. Coronary artery disease. He is not having any angina. I recommend he continue the present medications. We are somewhat limited in what we can't give him due to low blood pressures at times. Essential hypertension. His blood pressures have been labile. He is back on the Entresto and seems to be tolerating this. Ischemic cardiomyopathy. He has severe left ventricular systolic dysfunction. Due to his advanced age and debilitated state, he is not an ideal candidate for a defibrillator. We will continue with guideline directed medical therapy to the best of our ability which will be dictated by his blood pressures and renal function. Problems: Subjective We are seeing him for CHF and coronary artery disease. S: He still has some mild shortness of breath. He denies chest pain, palpitations, syncope, or lower extremity edema. Objective Vital Signs Date Time Temp Pulse Resp B/P (MAP) Pulse Ox O2 Delivery O2 Flow Rate FiO2 05/07/17 08:17 60 125/46 05/07/17 08:00 Room Air 05/07/17 05:33 97.3 16 96 Intake and Output 05/07/17 07:00 Intake Total 1609 ml Balance 1609 ml Intake Oral 1320 ml IV Total 289 ml # Voids 5 # Bowel Movements 3 Abdomen: Normal bowel sounds, Soft, No tenderness Heart: Regular rate, Normal S1, Normal S2, No murmurs Extremities: No clubbing, No cyanosis, No edema, Normal pulses General: Alert, Cooperative, No acute distress HEENT: Atraumatic, EOMI, Mucous membr. moist/pink Lungs: Clear to auscultation, Normal air movement Neck: No JVD, +2 carotid pulse wo bruit Neuro: Normal speech, Cranial nerves 3-12 NL Psych/Mental Status: Mental status NL, Mood NL Skin: No rashes Review of Relevant I have reviewed the following items tasneem (where applicable) has been applied. Labs Laboratory Tests Test 05/05/17 16:36 05/05/17 18:28 05/05/17 19:21 05/06/17 07:29 Glucose (Fingerstick) 275 mg/dL (70-99) 225 mg/dL (70-99) 120 mg/dL (70-99) Vancomycin Level Trough 14.2 mcg/mL (10.0-20.0) Vancomycin Last Dose Date 05/04/17 Vancomycin Last Dose Time 2100 Test 05/06/17 11:18 05/06/17 16:25 05/06/17 19:54 05/07/17 07:29 Glucose (Fingerstick) 194 mg/dL (70-99) 250 mg/dL (70-99) 245 mg/dL (70-99) 162 mg/dL (70-99) White Blood Count 8.4 x10^3/uL (4.0-11.0) Red Blood Count 3.54 x10^6/uL (4.30-5.70) Hemoglobin 10.9 g/dL (13.0-17.5) Hematocrit 32.7 % (39.0-53.0) Mean Corpuscular Volume 92 fL (79-100) Mean Corpuscular Hemoglobin 31 pg (25-35) Mean Corpuscular Hemoglobin Concent 33 g/dL (31-37) Red Cell Distribution Width 15.2 % (11.5-14.5) Platelet Count 311 x10^3/uL (140-400) Neutrophils (%) (Auto) 72 % (31-73) Lymphocytes (%) (Auto) 17 % (24-48) Monocytes (%) (Auto) 7 % (0-9) Eosinophils (%) (Auto) 4 % (0-3) Basophils (%) (Auto) 0 % (0-3) Neutrophils # (Auto) 6.0 x10^3uL (1.8-7.7) Lymphocytes # (Auto) 1.4 x10^3/uL (1.0-4.8) Monocytes # (Auto) 0.6 x10^3/uL (0.0-1.1) Eosinophils # (Auto) 0.3 x10^3/uL (0.0-0.7) Basophils # (Auto) 0.0 x10^3/uL (0.0-0.2) Sodium Level 135 mmol/L (136-145) Potassium Level 5.0 mmol/L (3.5-5.1) Chloride Level 103 mmol/L (98-107) Carbon Dioxide Level 27 mmol/L (21-32) Anion Gap 5 (6-14) Blood Urea Nitrogen 38 mg/dL (8-26) Creatinine 1.1 mg/dL (0.7-1.3) Estimated GFR (Cockcroft-Gault) 63.2 BUN/Creatinine Ratio 35 (6-20) Glucose Level 172 mg/dL (70-99) Calcium Level 8.4 mg/dL (8.5-10.1) Total Bilirubin 0.2 mg/dL (0.2-1.0) Aspartate Amino Transf (AST/SGOT) 18 U/L (15-37) Alanine Aminotransferase (ALT/SGPT) 8 U/L (16-63) Alkaline Phosphatase 106 U/L (46-116) Total Protein 5.9 g/dL (6.4-8.2) Albumin 2.0 g/dL (3.4-5.0) Albumin/Globulin Ratio 0.5 (1.0-1.7) Test 05/07/17 11:16 Glucose (Fingerstick) 187 mg/dL (70-99) Microbiology 05/03/17 Blood Culture - Preliminary, Resulted NO GROWTH AFTER 4 DAYS 05/03/17 Aerobic Culture - Final, Complete 05/03/17 Aerobic Culture - Final, Complete 05/03/17 Antimicrobic Susceptibility - Final, Complete 05/03/17 Gram Stain - Final, Complete 05/03/17 Gram Stain Result 1 (NICO) - Final, Complete 05/03/17 Gram Stain Result 2 (NICO) - Final, Complete Medications Current Medications Sodium Chloride (Normal Saline Flush) 10 ml QSHIFT PRN IV AFTER MEDS AND BLOOD DRAWS; Start 05/03/17 at 11:15 Ceftriaxone Sodium 1 gm/ Sodium Chloride 50 ml @ 100 mls/hr 1X ONCE IV ; Start 05/03/17 at 13:15; Stop 05/03/17 at 13:44; Status DC Ceftriaxone Sodium (Rocephin) 1 gm Q24H IVP Last administered on 05/03/17at 14: 33; Start 05/03/17 at 14:00; Stop 05/03/17 at 18:16; Status DC Lactobacillus Rhamnosus (Culturelle) 1 cap BID PO ; Start 05/03/17 at 21:00; Status Cancel Influenza Virus Vaccine Quadrival (Fluarix Quad [id number] Syringe) 0.5 ml ONCE ONCE VAX IM Last administered on 05/04/17at 12:55; Start 05/04/17 at 09:00; Stop 05/04/17 at 09:01; Status DC Amlodipine Besylate (Norvasc) 2.5 mg DAILY PO Last administered on 05/04/17at 09 :03; Start 05/04/17 at 09:00; Stop 05/05/17 at 08:54; Status DC Aspirin (Children'S Aspirin) 81 mg DAILY PO Last administered on 05/07/17 08:17 ; Start 05/04/17 at 09:00 Calcium/Vitamin D (Oscal D 500mg/ 200uts) 1 tab BID PO Last administered on 05/07 08:16; Start 05/03/17 at 21:00 Carbidopa/Levodopa (Sinemet 25/100) 1 tab QID PO Last administered on 05/07/17 12:51; Start 05/03/17 at 21:00 Cefpodoxime Proxetil (Vantin) 100 mg BID PO ; Start 05/03/17 at 21:00; Stop at 21:00; Status DC Potassium Chloride (Klor-Con) 20 meq DAILY PO Last administered on 05/07/17at 08: 16; Start 05/04/17 at 09:00 Simvastatin (Zocor) 20 mg QHS PO Last administered on 05/06/17at 21:15; Start at 21:00 Non-Formulary Medication 5 unit TIDAC SQ ; Start 05/04/17 at 07:30; Stop at 07:30; Status DC Lactobacillus Rhamnosus (Culturelle) 1 cap BID PO Last administered on 08:16; Start 05/03/17 at 21:00 Non-Formulary Medication 5 unit HS PRN SQ FOR BLOOD SUGAR >200; Start 05/03/17 at 18:15; Stop 05/03/17 at 19:02; Status DC Pantoprazole Sodium (Protonix) 40 mg DAILY PO Last administered on 05/07/17 08: 16; Start 05/04/17 at 09:00 Vancomycin HCl (Vanco Per Pharmacy) 1 each PRN DAILY PRN MC SEE COMMENTS Last administered on 05/03/17at 19:26; Start 05/03/17 at 18:15 Hydralazine HCl (Apresoline) 10 mg TID PO Last administered on 05/04/17at 13:36 ; Start 05/03/17 at 21:00; Stop 05/04/17 at 15:21; Status DC Insulin Aspart (NovoLOG) FSBS 150-2,00: 3 UNITS F... TIDAC SQ Last administered on 05/07/17at 12:19; Start 05/04/17 at 07:30 Vancomycin HCl 1.25 gm/Sodium Chloride 250 ml @ 166.667 mls/hr 1X ONCE IV Last administered on 05/03/17at 21:42; Start 05/03/17 at 21:00; Stop 05/03/17 at 22:29; Status DC Vancomycin HCl 750 mg/Sodium Chloride 250 ml @ 250 mls/hr Q24H IV Last administered on 05/06/17at 21:15; Start 05/04/17 at 21:00 Vancomycin HCl 1 each 1X ONCE MC Last administered on 05/05/17at 20:30; Start 05/05/17 at 20:30; Stop 05/05/17 at 20:31; Status DC Sacubitril/ Valsartan (Entresto 24 Mg-26 Mg) 1 tab BID PO Last administered on 05/07/17at 08:17; Start 05/04/17 at 21:00 Active Scripts Active Reported Humulin R (Insulin Regular, Human) 100 Unit/1 Ml Vial 3-5 Unit IJ TIDAC LAST DOSE GIVEN: DATE: TIME: NEXT DOSE DUE: DATE: TIME: Humulin N (Nph, Human Insulin Isophane) 100 Unit/1 Ml Vial 5 Unit SQ HS PRN LAST DOSE GIVEN: DATE: TIME: NEXT DOSE DUE: DATE: TIME: Cefpodoxime Proxetil 200 Mg Tablet 0.5 Tab PO BID LAST DOSE GIVEN: DATE: TIME: NEXT DOSE DUE: DATE: TIME: Acidophilus (Lactobacillus Acidophilus) 1 Each Capsule 2 Each PO BID LAST DOSE GIVEN: DATE: TIME: NEXT DOSE DUE: DATE: TIME: Simvastatin 20 Mg Tablet 1 Tab PO QHS LAST DOSE GIVEN: DATE: TIME: NEXT DOSE DUE: DATE: TIME: Klor-Con M20 (Potassium Chloride) 20 Meq Tab.er.prt 1 Tab PO DAILY LAST DOSE GIVEN: DATE: TIME: NEXT DOSE DUE: DATE: TIME: Omeprazole 40 Mg Capsule.dr 1 Cap PO DAILY LAST DOSE GIVEN: DATE: TIME: NEXT DOSE DUE: DATE: TIME: Sinemet 25-100 Mg Tablet (Carbidopa/Levodopa) 1 Each Tablet 1 Tab PO QID LAST DOSE GIVEN: DATE: TIME: NEXT DOSE DUE: DATE: TIME: Calcium 500 + Vit D 200 Tablet (Calcium Carbonate/Vitamin D3) 1 Each Tablet 1 Each PO BID LAST DOSE GIVEN: DATE: TIME: NEXT DOSE DUE: DATE: TIME: Aspirin 81 Mg Tab.chew 81 Mg PO DAILY LAST DOSE GIVEN: DATE: TIME: NEXT DOSE DUE: DATE: TIME: Amlodipine Besylate 2.5 Mg Tablet 1 Tab PO DAILY LAST DOSE GIVEN: DATE: TIME: NEXT DOSE DUE: DATE: TIME: Vitals/I & O Vital Sign - Last 24 Hours 05/06/17 05/06/17 05/06/17 05/06/17 15:43 19:34 20:30 21:16 Temp 98.4 Pulse 60 60 60 Resp 20 14 B/P (MAP) 155/88 (110) 105/45 (65) 105/45 Pulse Ox 100 96 O2 Delivery Room Air Room Air Room Air 05/06/17 05/07/17 05/07/17 05/07/17 23:07 05:33 08:00 08:17 Temp 97.3 Pulse 64 60 60 Resp 14 16 B/P (MAP) 120/46 (70) 125/46 (72) 125/46 Pulse Ox 99 96 O2 Delivery Room Air Room Air Room Air Intake and Output 05/06/17 05/06/17 05/07/17 15:00 23:00 07:00 Intake Total 720 ml 240 ml 649 ml Balance 720 ml 240 ml 649 ml NUNU QUINONEZ Jr, MD May 07, 2017 13:04
[2017-05-07 13:57] VITALS: BP 136/69
[2017-05-07] MEDS ORDERED: SACU1TAB PO (14:48)
[2017-05-07] MEDS ORDERED: VANC1VIA3 MC (14:48)
== END 2017-05-07 14:57 | disposition short-term general hospital (02) | DRG 291 ==
LOC: ER 10:30 → 1 SOUTH 13:10
PROVIDERS: ADMIT Family Medicine; ATTEND Family Medicine
DX: I13.0 Hypertensive heart and chronic kidney disease with heart failure and stage 1 through stage 4 chronic kidney disease, or unspecified chronic kidney disease (principal); I50.43 Acute on chronic combined systolic (congestive) and diastolic (congestive) heart failure; E11.621 Type 2 diabetes mellitus with foot ulcer; E11.22 Type 2 diabetes mellitus with diabetic chronic kidney disease; N18.4 Chronic kidney disease, stage 4 (severe); E11.65 Type 2 diabetes mellitus with hyperglycemia; I49.5 Sick sinus syndrome; M86.8X7 Other osteomyelitis, ankle and foot; E11.69 Type 2 diabetes mellitus with other specified complication; L97.519 Non-pressure chronic ulcer of other part of right foot with unspecified severity; I25.5 Ischemic cardiomyopathy; I25.10 Atherosclerotic heart disease of native coronary artery without angina pectoris; D64.9 Anemia, unspecified; I34.0 Nonrheumatic mitral (valve) insufficiency; E78.5 Hyperlipidemia, unspecified; Z87.891 Personal history of nicotine dependence; I25.2 Old myocardial infarction; Z95.0 Presence of cardiac pacemaker; Z90.49 Acquired absence of other specified parts of digestive tract; Z89.421 Acquired absence of other right toe(s)
CPT/HCPCS: 36415; 36569; 71046; 80048; 80053; 80202; 82553; 82947; 83605; 83735; 83880; 84484; 85025; 85610; 85730; 87040; 87070; 87186; 87324; 87641; 90686; 93005; 93306; J0696; J1815; J3370; J7050; 99285-25

== ENCOUNTER 2017-06-05 09:35 | Inpatient (IN) | payer MEDICARE ==
[~2017-06-05] VITALS: Ht 160 cm; Wt 53.2 kg
[2017-06-05] VITALS (8 sets, daily range): BP systolic 88–138; BP diastolic 42–62
[~2017-06-05 09:35] MED LIST changes: +ASPI-630 PO; +CARB1TAB2 PO; +CEFP200T PO; +INSU100V5 IJ; +INSU500I SQ; +LACT1CAP2 PO; +NPH,100V SQ; +OMEP40CA5 PO; +POTA20TA4 PO; +SACU1TAB PO; +VANC1VIA3 MC
[2017-06-05 10:19] LABS: BASO % 0 % (0-3); EOS # 0.3 x10^3/uL (0.0-0.7); EOS % 3 % (0-3); HEMATOCRIT 28.8 % (39.0-53.0); HEMOGLOBIN 9.5 g/dL (13.0-17.5); LYMPH % 9 % (24-48); MEAN CORPUSCULAR HEMOGLOBIN 31 pg (25-35); MEAN CORPUSCULAR HGB CONC 33 g/dL (31-37); MEAN CORPUSCULAR VOLUME 94 fL (79-100); MONO # 0.3 x10^3/uL (0.0-1.1); MONO % 3 % (0-9); NEUT # 9.6 x10^3uL (1.8-7.7); NEUT % 85 % (31-73); PLATELET COUNT 159 x10^3/uL (140-400); RED BLOOD COUNT 3.08 x10^6/uL (4.30-5.70); RED CELL DISTRIBUTION WIDTH 17.9 % (11.5-14.5); WHITE BLOOD COUNT 11.2 x10^3/uL (4.0-11.0)
--- NOTE | 2017-06-05 10:33 | RAD ---
Portable AP chest x-ray Indications: Shortness of breath with mental status change. Comparison: May 03, 2017. Findings: Again seen is a moderate size left-sided pleural effusion and associated left lung base consolidation or compressive atelectasis. There has been increase in pleural effusion within the lateral left midlung zone and within the left apex. A small right-sided pleural effusion is evident and is unchanged. No pneumothorax is seen. The heart size and mediastinum are stable. IMPRESSION: Chronic moderate size left-sided pleural effusion. Slight increase in left-sided pleural effusion from the previous study.
--- NOTE | 2017-06-05 10:42 | RAD ---
Clinical indications: Mental status change. Technique: Noncontrast axial cross sectional scanning of the head was performed. PQRS Compliance Statement: One or more of the following individualized dose reduction techniques were utilized for this examination: 1. Automated exposure control 2. Adjustment of the mA and/or kV according to patient size 3. Use of iterative reconstruction technique Comparison: None available. Findings: No acute intracranial hemorrhage or midline shift or mass-effect or hydrocephalus or extra-axial fluid collection is seen. Mild bilateral periventricular white matter hypodensity is seen consistent with chronic small vessel ischemic disease in this age group. There is a central hypodensity of the mid brain. No skull fracture or pneumocephalus is seen. No opacification paranasal sinuses is seen. The maxillary sinuses are not completely seen in this study. There is mucosal thickening of the left mastoid sinus. Impression: No acute intracranial hemorrhage is seen. Chronic small vessel ischemic disease of the periventricular white matter. Central hypodensity of the midbrain. This may be due to ischemia of indeterminate age. This is not the typical location for osmotic demyelination syndrome i.e. central pontine myelinolysis.
[2017-06-05 11:29] LABS: ALBUMIN 2.1 g/dL (3.4-5.0); ALBUMIN/GLOBULIN RATIO 0.5 (1.0-1.7); ALK PHOS 85 U/L (46-116); ANION GAP 7 (6-14); AST (SGOT) 14 U/L (15-37); BLOOD UREA NITROGEN 26 mg/dL (8-26); BUN/CREATININE RATIO 20 (6-20); CALCIUM 8.7 mg/dL (8.5-10.1); CARBON DIOXIDE 32 mmol/L (21-32); CHLORIDE 101 mmol/L (98-107); CREATININE 1.3 mg/dL (0.7-1.3); GFR 52.1; GLUCOSE 128 mg/dL (70-99); LIPASE 31 U/L (73-393); MAGNESIUM 1.6 mg/dL (1.8-2.4); POTASSIUM 3.7 mmol/L (3.5-5.1); SODIUM 140 mmol/L (136-145); TOTAL BILIRUBIN 0.4 mg/dL (0.2-1.0); TOTAL PROTEIN 6.2 g/dL (6.4-8.2)
[2017-06-05 11:31] LABS: ALT (SGPT) < 6 U/L (16-63)
[2017-06-05 11:55] LABS: BILIRUBIN,URINE NEG (NEG); CLARITY,URINE HAZY; COLOR,URINE YELLOW; GLUCOSE,URINE NEG (NEG); NITRITE,URINE NEG (NEG); UROBILINOGEN,URINE 0.2 mg/dL (0.2 mg/dL)
[2017-06-05 11:56] LABS: BACTERIA,URINE MOD /HPF (0-FEW); RBC,URINE 0 /HPF (0-2); SQUAMOUS EPITHELIAL CELL,UR OCC /LPF
--- NOTE | 2017-06-05 12:25 | PHYS DOC ---
Past History Past Medical History: CAD, CHF, COPD, Diabetes, Hypertension, Other Past Surgical History: Pacemaker, Other Smoking: Non-smoker Alcohol Use: None Drug Use: None Adult General Chief Complaint Chief Complaint: HYPOTENSION HPI HPI 86 year old male patient resident of group home with recent hospitalization at [facility] with diagnose of sepsis and osteomyelitis brought in by EMS because of altered level of consciousness and hypotension. care home staff reported the patient was unresponsive this morning and his blood pressure dropped to 80/40. care home staff reported that patient had usual day yesterday without hypotension or fever. EMS reported patient was alert and oriented and had blood pressure of 120s. Patient denies any new problem. Review of Systems Review of Systems Constitutional: Denies fever or chills [] Eyes: Denies change in visual acuity, redness, or eye pain [] HENT: Denies nasal congestion or sore throat [] Respiratory: Denies cough or shortness of breath [] Cardiovascular: No additional information not addressed in HPI [] GI: Denies abdominal pain, nausea, vomiting, bloody stools or diarrhea [] : Denies dysuria or hematuria [] Musculoskeletal: Denies back pain or joint pain [] Integument: Denies rash or skin lesions [] Neurologic: Denies headache, focal weakness or sensory changes [] Endocrine: Denies polyuria or polydipsia [] All other systems were reviewed and found to be within normal limits, except as documented in this note. Current Medications Current Medications Current Medications Medications (Trade) Dose Ordered Sig/Aidan Start Time Stop Time Status Last Admin Dose Admin Ceftriaxone Sodium 1 gm/ Sodium Chloride 50 ml @ 100 mls/hr 1X ONCE 06/05/17 12:15 06/05/17 12:44 UNV Allergies Allergies Allergies Coded Allergies Type Severity Reaction Last Updated Verified NKMA Allergy Unknown 05/04/17 Yes Physical Exam Physical Exam Constitutional: No acute distress, non-toxic appearance, ill looking, [place]. [] HENT: Normocephalic, atraumatic, bilateral external ears normal, oropharynx moist, no oral exudates, nose normal. [] Eyes: PERRLA, EOMI, conjunctiva normal, no discharge. [] Neck: Normal range of motion, no tenderness, supple, no stridor. [] Cardiovascular:Heart rate regular rhythm, no murmur [] Lungs & Thorax: Decrease of breath sounds in left basilar, no respiratory distress Abdomen: Bowel sounds normal, soft, no tenderness, no masses, no pulsatile masses. [] Skin: Warm, dry, no erythema, no rash. [] Back: No tenderness, no CVA tenderness. [] Extremities: No edema, no neurovascular deficit, right transmetatarsal amputation Neurologic: Alert and oriented X 2, normal motor function, normal sensory function, no focal deficits noted. [] Psychologic: Affect normal Current Patient Data Vital Signs Vital Signs Date Time Temp Pulse Resp B/P (MAP) Pulse Ox O2 Delivery O2 Flow Rate FiO2 06/05/17 11:02 69 22 123/54 (77) 94 Room Air 06/05/17 10:26 97.9 Lab Results Laboratory Tests Test 06/05/17 10:07 06/05/17 10:08 06/05/17 10:50 06/05/17 11:34 Glucose (Fingerstick) 91 mg/dL (70-99) White Blood Count 11.2 x10^3/uL (4.0-11.0) H Red Blood Count 3.08 x10^6/uL (4.30-5.70) L Hemoglobin 9.5 g/dL (13.0-17.5) L Hematocrit 28.8 % (39.0-53.0) L Mean Corpuscular Volume 94 fL (79-100) Mean Corpuscular Hemoglobin 31 pg (25-35) Mean Corpuscular Hemoglobin Concent 33 g/dL (31-37) Red Cell Distribution Width 17.9 % (11.5-14.5) H Platelet Count 159 x10^3/uL (140-400) Neutrophils (%) (Auto) 85 % (31-73) H Lymphocytes (%) (Auto) 9 % (24-48) L Monocytes (%) (Auto) 3 % (0-9) Eosinophils (%) (Auto) 3 % (0-3) Basophils (%) (Auto) 0 % (0-3) Neutrophils # (Auto) 9.6 x10^3uL (1.8-7.7) H Lymphocytes # (Auto) 1.0 x10^3/uL (1.0-4.8) Monocytes # (Auto) 0.3 x10^3/uL (0.0-1.1) Eosinophils # (Auto) 0.3 x10^3/uL (0.0-0.7) Basophils # (Auto) 0.0 x10^3/uL (0.0-0.2) Prothrombin Time 11.1 SEC (9.4-11.4) Prothrombin Time INR 1.1 (0.9-1.1) Lactic Acid Level 1.9 mmol/L (0.4-2.0) Troponin I Quantitative 0.020 ng/mL (0-0.055) Sodium Level 140 mmol/L (136-145) Potassium Level 3.7 mmol/L (3.5-5.1) Chloride Level 101 mmol/L (98-107) Carbon Dioxide Level 32 mmol/L (21-32) Anion Gap 7 (6-14) Blood Urea Nitrogen 26 mg/dL (8-26) Creatinine 1.3 mg/dL (0.7-1.3) Estimated GFR (Cockcroft-Gault) 52.1 BUN/Creatinine Ratio 20 (6-20) Glucose Level 128 mg/dL (70-99) H Calcium Level 8.7 mg/dL (8.5-10.1) Magnesium Level 1.6 mg/dL (1.8-2.4) L Total Bilirubin 0.4 mg/dL (0.2-1.0) Aspartate Amino Transferase (AST) 14 U/L (15-37) L Alanine Aminotransferase (ALT) < 6 U/L (16-63) L Alkaline Phosphatase 85 U/L (46-116) Creatine Kinase 21 U/L (39-308) L Creatine Kinase MB (Mass) 1.7 ng/mL (0.0-3.6) Creatine Kinase MB Relative Index 8.1 % (0-4) H YS-Kxy-O-Type Natriuretic Peptide 96126 pg/mL (0-449) H Total Protein 6.2 g/dL (6.4-8.2) L Albumin 2.1 g/dL (3.4-5.0) L Albumin/Globulin Ratio 0.5 (1.0-1.7) L Lipase 31 U/L (73-393) L Urine Collection Type Void Urine Color Yellow Urine Clarity Hazy Urine pH 5.5 Urine Specific [place] 1.015 Urine Protein 100 mg/dl (NEG-TRACE) Urine Glucose (UA) Neg mg/dL (NEG) Urine Ketones (Stick) Trace mg/dL (NEG) Urine Blood Neg (NEG) Urine Nitrite Neg (NEG) Urine Bilirubin Neg (NEG) Urine Urobilinogen Dipstick 0.2 mg/dL (0.2 mg/dL) Urine Leukocyte Esterase Trace (NEG) Urine RBC 0 /HPF (0-2) Urine WBC 11-20 /HPF (0-4) Urine Squamous Epithelial Cells Occ /LPF Urine Bacteria Mod /HPF (0-FEW) EKG EKG KG interpreted by me. EKG at 1006 shows sinus rhythm, rate of 69, left dangelo axis , poor R-wave progress in anterolateral leads, no acute distress and T wave elevation Radiology/Procedures Radiology/Procedures [] [address] [place] [id number] IMAGING REPORT Signed PATIENT: ABY PEREZ ACCOUNT: [id number] : 1930 LOCATION: ER AGE: 86 SEX: M EXAM STATUS: REG ER ORD. PHYSICIAN: MEME AGUILAR MD REASON: ALOC PROCEDURE: PORTABLE CHEST 1V Portable AP chest x-ray Indications: Shortness of breath with mental status change. Comparison: May 03, 2017. Findings: Again seen is a moderate size left-sided pleural effusion and associated left lung base consolidation or compressive atelectasis. There has been increase in pleural effusion within the lateral left midlung zone and within the left apex. A small right-sided pleural effusion is evident and is unchanged. No pneumothorax is seen. The heart size and mediastinum are stable. IMPRESSION: Chronic moderate size left-sided pleural effusion. Slight increase in left-sided pleural effusion from the previous study. DICTATED AND SIGNED BY: MARGO CHUA MD DATE: 06/05/17 1027 CC: GENEVIEVE MORALES MD; MEME AGUILAR MD ~ [address] [id number] IMAGING REPORT Signed PATIENT: ABY PEREZ ACCOUNT: [id number] : 1930 LOCATION: ER AGE: 86 SEX: M EXAM STATUS: REG ER ORD. PHYSICIAN: MEME AGUILAR MD REASON: ALOC PROCEDURE: CT HEAD WO CONTRAST Clinical indications: Mental status change. Technique: Noncontrast axial cross sectional scanning of the head was performed. RS Compliance Statement: One or more of the following individualized dose reduction techniques were utilized for this examination: 1. Automated exposure control 2. Adjustment of the mA and/or kV according to patient size 3. Use of iterative reconstruction technique Comparison: None available. Findings: No acute intracranial hemorrhage or midline shift or mass-effect or hydrocephalus or extra-axial fluid collection is seen. Mild bilateral periventricular white matter hypodensity is seen consistent with chronic small vessel ischemic disease in this age group. There is a central hypodensity of the mid brain. No skull fracture or pneumocephalus is seen. No opacification paranasal sinuses is seen. The maxillary sinuses are not completely seen in this study. There is mucosal thickening of the left mastoid sinus. Impression: No acute intracranial hemorrhage is seen. Chronic small vessel ischemic disease of the periventricular white matter. Central hypodensity of the midbrain. This may be due to ischemia of indeterminate age. This is not the typical location for osmotic demyelination syndrome i.e. central pontine myelinolysis. DICTATED AND SIGNED BY: MARGO CHUA MD DATE: 06/05/17 1031 CC: GENEVIEVE MORALES MD; MEME AGUILAR MD ~ Course & Med Decision Making Course & Med Decision Making Pertinent Labs and Imaging studies reviewed. (See chart for details) Evaluation of patient in ER showed 86-year-old male patient with history of recent hospitalization because of sepsis brought in because of episodes of nonresponding and hypotension at group home. Patient did not have fever, hypotension, altered level of consciousness or tachycardia in ER. Patient did not have leukocytosis. Patient tried to stand up for urination and had very short episodes syncope without fall. Labs showed CHF UTI. Rocephin was started. BNP was 17,000 and after consulting admitting physician IV fluid was not started. Dr Gay informed at 1207 and agreed with plan of care and admitting patient. Dragon Disclaimer Dragon Disclaimer This electronic medical record was generated, in whole or in part, using a voice recognition dictation system. Departure Departure: Impression: Primary Impression: Altered level of consciousness Additional Impressions: Urinary tract infection CHF (congestive heart failure) Hypomagnesemia Chronic anemia Pleural effusion on left Disposition: 09 ADMITTED INPATIENT (At 1207) Admitting Physician: Tyrell Gay Condition: IMPROVED Referrals: GENEVIEVE MORALES MD (PCP) Problem Qualifiers MEME AGUILAR MD Jun 05, 2017 12:25
[2017-06-05] MEDS ORDERED: cefTRIAXone IV Push 1 GM VIAL. IVP ONE (12:30)
[2017-06-05] MEDS ORDERED: MAGNESIUM OXIDE 400 MG TABLET PO ONE (12:30)
[2017-06-05] MEDS ORDERED: BISA10SU2 RC (14:00)
[2017-06-05] MEDS ORDERED: ALBU2.5V5 NEB (14:00)
[2017-06-05] MEDS ORDERED: HYDR-2762 PO (14:00)
[2017-06-05] MEDS ORDERED: ACET325T9 PO (14:00)
[2017-06-05] MEDS ORDERED: FURO40TA4 PO (14:00)
[2017-06-05] MEDS ORDERED: SACU1TAB PO (14:03)
[2017-06-05] MEDS ORDERED: INSU100I17 SQ (14:08)
--- NOTE | 2017-06-05 14:38 | NUR ---
NSG NOTE; ADMISSION ADMIT TO ROOM 124 AT 1307 FROM ED VIA CART ACCOMP BY EMS PERSONNEL PT MORE CONFUSED AND I'M LESS ABLE TO UNDERSTAND HIM FROM PREVIOUS ADMISSION PT WAS RECENTLY TRANSFERRED FROM [facility] TO [facility] WHERE HE UNDERWENT RIGHT FOOT PARTIAL AMPUTATION. PT STATES THIS WAS IN EARLY MAY. HE WAS THEN SENT TO [facility] FOR RECONDITIONING.
[2017-06-05] MEDS ORDERED: ALBUTEROL SULFATE 2.5 MG/3 ML NEBU. NEB PRN (17:15)
[2017-06-05] MEDS ORDERED: INSULIN ASPART 300 UNITS/3 ML INSULN.PEN SQ PRN (17:15)
[2017-06-05] MEDS ORDERED: ACETAMINOPHEN 325 MG TABLET PO PRN (17:15)
[2017-06-05] MEDS ORDERED: BISACODYL 10 MG SUPP.RECT RC PRN (17:15)
[2017-06-05] MEDS ORDERED: HYDROcodone/APAP 7.5/325MG 1 TAB TABLET PO PRN (17:15)
[2017-06-05] MEDS ORDERED: DEXTROSE 50% 25 GM / 50ML DISP.SYRIN. IV PRN (17:45)
[2017-06-05] MEDS: MIDODRINE 2.5 MG TABLET PO SCH (17:54)
--- NOTE | 2017-06-05 18:17 | HP ---
ADMIT DATE: 06/05/2017 HISTORY OF PRESENT ILLNESS: The patient is an 86-year-old [place] male patient, who was discharged recently from [facility]. He was admitted with sepsis, pneumonia. He also had a right transmetatarsal amputation and grew methicillin sensitive Staph aureus and completed antibiotic therapy on the day he was discharged from the [facility], was admitted to [facility] for further rehabilitation. The nursing staff stated that they attempted to get him out of the bed this morning and he basically became unresponsive 3 times. His blood pressure dropped down to 68/37 just sitting on the edge of the bed. Once the patient was put back into bed and elevated his legs and was in Trendelenburg position, he became ____ and became more responsive. Because this happened 3 times during which he became unresponsive, a decision was made to transfer him to the Emergency Room, where again a similar experience that the nursing staff could not get him to stand up and he became unresponsive and has to put him back on the bed. We tried again once in the hospital and again there was marked difference between his lying blood pressure of 110/45 lying in bed to 88/54 standing. The patient was symptomatic, complained of dizziness. The patient, however, denied any complaint of chest pain or shortness of breath. There is no history of loss of consciousness or seizures and was admitted for further evaluation and treatment. PAST MEDICAL HISTORY: Significant for coronary artery disease, triple vessel disease; however, the patient refused surgical intervention and the patient is also known to have congestive heart failure, ischemic cardiomyopathy, hypertension, hyperlipidemia, pulmonary hypertension, peripheral vascular disease. He is status post right transmetatarsal amputation. He is known to have orthostatic hypotension, bradycardia, COPD, peripheral neuropathy, arthritis, osteoporosis, Parkinson's disease, chronic kidney disease stage 3 and type 2 diabetes. PAST SURGICAL HISTORY: Significant for appendectomy, pacemaker placement. He also had right transmetatarsal amputation recently. FAMILY HISTORY: Noncontributory. SOCIAL HISTORY: He lives at home with his . He quit smoking about 20 years ago. He does not drink alcohol or recreational drugs. He was actually at [facility] for further rehabilitation. ALLERGIES: He has no known drug allergies. MEDICATIONS: He was on following medications: He was on Tylenol 650 mg every 6 hours, albuterol sulfate 2.5 mg 3 mL by nebulizer every 4 hours, aspirin 81 mg once a day, bisacodyl 10 mg daily p.r.n. for constipation, calcium carbonate with vitamin D one tablet twice a day, carbidopa/levodopa 25/100 four times a day. He is on furosemide 40 mg daily, hydrocodone/APAP 7.5/325 one tablet every 6 hours. He is on NovoLog insulin before meals and Lactobacillus acidophilus 2 tablets twice a day, omeprazole 40 mg once a day and Entresto 1 tablet twice a day and simvastatin, he takes 40 mg at bedtime. REVIEW OF SYSTEMS: The patient denied any blurring of vision, cataract, glaucoma or macular degeneration. Denied any earache, tinnitus or sensorineural deafness. Denied any nosebleeds, stuffy nose or postnasal drip. Denied any sore throat, sore tongue, toothache, hoarseness of voice or difficulty swallowing. Denied any nausea, vomiting, diarrhea or constipation. Denied any hematemesis, melena or hematochezia. Denied any dysuria, frequency or hematuria. Denied any chest pain, shortness of breath, orthopnea or paroxysmal nocturnal dyspnea. Did complain of dizziness and lightheadedness. PHYSICAL EXAMINATION: GENERAL: On arrival to the Emergency Room, he looked pale, extremely cachectic, but no jaundice, cyanosis, or thyromegaly. No jugular distention. Mild bilateral limb edema. VITAL SIGNS: His heart rate was 68 with a blood pressure was 123/54. However, he did experience dizziness when he attempted to stand up according to nursing staff at the Emergency Room. His temperature was 97.7 and oxygen saturation was 94%. HEENT: Showed normocephalic, atraumatic. NECK: Supple. HEART: Showed normal first and second heart sounds with no gallop, rub or murmur. CHEST: Clear to auscultation. No crepitation or rhonchi. ABDOMEN: Distended, soft, nontender. No guarding or rigidity. No organomegaly. Hernial orifice intact. Bowel sounds normal. NEUROLOGIC: He was very hard of hearing. Otherwise, all his cranial nerves were intact. He moves extremities without difficulty, although he has mask face and a very slow monotonous voice. However, he has also some tremors in his upper extremities. LABORATORY DATA: His lab work in the Emergency Room showed a white cell count of 11,200, hemoglobin 9.5, hematocrit 28.8, MCV 94 and platelet count of 259,000. His chemistry showed a serum sodium of 140, potassium 3.7, chloride 101, bicarbonate 32, anion gap of 7, BUN 26, creatinine 1.3, estimated GFR was 52 mL per minute. His glucose was 128, lactic acid was 1.9. Calcium was 8.7, magnesium was 1.6. Total bilirubin, AST, ALT, alkaline phosphatase were normal. His beta natriuretic peptide was 17,450. Total protein was 6.2, albumin 2.1. Lipase was 31. His prothrombin time was 11.1, INR 1.1. His urinalysis showed the urine was yellow, hazy with a pH of 5.5, specific gravity of 1.015. Urine was positive for protein, negative for glucose, trace of ketones, negative for blood and negative for nitrite and bilirubin. There was a trace of leukocyte esterase. There were no rbc's, 11-20 wbc's and moderate amount of bacteria. CT scan of the head showed no acute intracranial hemorrhage or midline shift or mass effect or hydrocephalus or extraaxial fluid collection is seen. Mild bilateral periventricular white matter hypodensities seen consistent with chronic small vessel ischemic disease in this age group. There is a central hypodensity of the midbrain and no skull fracture or pneumocephalus is seen, no opacification of paranasal sinus is seen. The maxillary sinuses are not completely seen in this study. There is mucosal thickening of the left mastoid sinuses. Impression: No acute intracranial hemorrhage is seen. Chronic small vessel ischemic disease, periventricular white matter. There is a central hypodensity ____, mid brain. This may be due to ischemia of the indeterminate age, is not a typical location for osmotic demyelination syndrome, i.e., central pontine myelinolysis. His chest x-ray showed that there is chronic moderate sized left- sided pleural effusion, slight increase in left-sided pleural effusion from the previous study. ASSESSMENT AND PLAN: In summary, this is an 86-year-old [place] male patient, who came with what seems to be syncopal episode. He apparently has Parkinson's disease. He has also congestive heart failure, ischemic cardiomyopathy as well as pulmonary hypertension and chronic obstructive pulmonary disease. He has peripheral neuropathy and he is diabetic. He is already on Entresto. I do not know whether the Primatene is compatible with Entresto. I will probably hold his furosemide for now and start him on midodrine 2.5 mg. Continue with his Entresto and all other medication and decide on further management accordingly. I will definitely consult the riddler operator to assist with the management. The patient has been in and out of the hospital multiple times and I do not know whether it is time to consider palliative care team. KRISTIN LAWRENCE MD DR: FELIX/my JOB#: [id number] / [id number]
[2017-06-05] MEDS: INSULIN ASPART 300 UNITS/3 ML INSULN.PEN SQ SCH (21:00)
[2017-06-05] MEDS: CARBIDOPA/LEVODOPA 25/100MG TABLET PO SCH (21:27)
[2017-06-05] MEDS: LACTOBACILLUS RHAMNOSUS GG 1 CAPSULE. PO SCH (21:27)
[2017-06-05] MEDS: CALCIUM CARB/VIT D3 500/200 TABLET PO SCH (21:28)
[2017-06-05] MEDS: SIMVASTATIN 40 MG TABLET. PO SCH (21:28)
[2017-06-05] MEDS: SACUBITRIL/VALSARTAN 24/26MG TABLET. PO SCH (21:29)
[2017-06-06] VITALS (7 sets, daily range): BP systolic 99–166; BP diastolic 49–66
[2017-06-06] MEDS: MIDODRINE 2.5 MG TABLET PO SCH ×3 (04:45→18:16)
--- NOTE | 2017-06-06 05:22 | NUR ---
Pt has not urinated during this shift. Pt feels uncomfortable, and bladder scan performed at this time. Bladder scanner shows there is over 400 ml of urine. Straight cath performed with only 150cc of urine. Will continue to monitor.
[2017-06-06] MEDS: INSULIN ASPART 300 UNITS/3 ML INSULN.PEN SQ SCH ×4 (07:30→20:31)
[2017-06-06 07:47] LABS: HEMATOCRIT 24.4 % (39.0-53.0); HEMOGLOBIN 8.3 g/dL (13.0-17.5); RED BLOOD COUNT 2.62 x10^6/uL (4.30-5.70); RED CELL DISTRIBUTION WIDTH 17.4 % (11.5-14.5); WHITE BLOOD COUNT 8.2 x10^3/uL (4.0-11.0)
[2017-06-06 08:04] LABS: CALCIUM 8.6 mg/dL (8.5-10.1); CREATININE 1.7 mg/dL (0.7-1.3); GFR 38.2; MAGNESIUM 1.7 mg/dL (1.8-2.4); POTASSIUM 3.9 mmol/L (3.5-5.1)
[2017-06-06] MEDS: ASPIRIN 81 MG TAB.CHEW PO SCH (08:49)
[2017-06-06] MEDS: CARBIDOPA/LEVODOPA 25/100MG TABLET PO SCH ×4 (08:49→20:32)
[2017-06-06] MEDS: LACTOBACILLUS RHAMNOSUS GG 1 CAPSULE. PO SCH ×2 (08:49→20:33)
[2017-06-06] MEDS: SACUBITRIL/VALSARTAN 24/26MG TABLET. PO SCH ×2 (08:49→20:32)
[2017-06-06] MEDS: CALCIUM CARB/VIT D3 500/200 TABLET PO SCH ×2 (08:49→20:33)
[2017-06-06] MEDS: PANTOPRAZOLE 40 MG TABLET. PO SCH (08:49)
[2017-06-06] MEDS: ENOXAPARIN 30 MG/0.3 ML DISP.SYRIN. SQ SCH (08:49)
[2017-06-06] MEDS: MAGNESIUM CHLORIDE ER 64 MG TABLET.ER PO SCH (09:30)
--- NOTE | 2017-06-06 10:46 | PN ---
DATE: 06/06/2017 SUBJECTIVE: An 86-year-old male admitted yesterday, H and P done by Dr. Gay. The patient otherwise doing somewhat better this morning. Apparently, [facility]. OBJECTIVE: VITAL SIGNS: Blood pressure has come up gradually to 102/50, respiratory rate 16, pulse 84 and afebrile. GENERAL: The patient is alert and oriented. LUNGS: Diminished throughout, poor movement in the bases, of course where he has these problems with left-sided pleural effusion. He has had these drained in the past. CARDIOVASCULAR: Regular rhythm, 1/6 systolic ejection murmur. ABDOMEN: Soft, nontender, no rebound or guarding. EXTREMITIES: No clubbing, cyanosis, nor edema. Marked atrophy to the musculoskeletal system and severe protein malnutrition. LABORATORY DATA: Magnesium slightly low, creatinine going up slightly. PLAN: The patient will be supplemented with additional magnesium, IV fluids. PT, OT and make further evaluation. Otherwise, mentally seems to be baseline without for the last 30 years. GENEVIEVE MORALES MD DR: IVON/my JOB#: [id number] / [id number]
--- NOTE | 2017-06-06 11:22 | EKG ---
[address] [address] Test Date: 2017-06-05 Test Time: 10:06:24 Pat Name: ABY PEREZ Department: Room: Gender: M Pick Up Man: : 1930 Requested By: MEME AGUILAR Order Number: [id number] Reading MD: Measurements Intervals [place] Rate: 69 P: IN: QRS: -14 QRSD: 110 T: 168 QT: 428 QTc: 460 Interpretive Statements IRREGULAR RHYTHM, NO P-WAVE FOUND LEFTWARD AXIS ST & T ABNORMALITY, CONSIDER ANTEROLATERAL ISCHEMIA OR LEFT VENTRICULAR STRAIN INFERIOR ISCHEMIA OR LEFT VENTRICULAR STRAIN ABNORMAL ECG RI6.01 No previous ECG available for comparison
[2017-06-06] MEDS: cefTRIAXone IV Push 1 GM VIAL. IVP SCH (12:45)
[2017-06-06] MEDS: SIMVASTATIN 40 MG TABLET. PO SCH (20:33)
[2017-06-07] MEDS: INSULIN ASPART 300 UNITS/3 ML INSULN.PEN SQ SCH ×4 (07:30→21:00)
[2017-06-07] MEDS: MAGNESIUM CHLORIDE ER 64 MG TABLET.ER PO SCH (08:21)
[2017-06-07] MEDS: PANTOPRAZOLE 40 MG TABLET. PO SCH (08:21)
[2017-06-07] MEDS: LACTOBACILLUS RHAMNOSUS GG 1 CAPSULE. PO SCH ×2 (08:21→22:09)
[2017-06-07] MEDS: CALCIUM CARB/VIT D3 500/200 TABLET PO SCH ×2 (08:21→22:09)
[2017-06-07] MEDS: ASPIRIN 81 MG TAB.CHEW PO SCH (08:21)
[2017-06-07] MEDS: MIDODRINE 2.5 MG TABLET PO SCH ×3 (08:21→17:31)
[2017-06-07] MEDS: CARBIDOPA/LEVODOPA 25/100MG TABLET PO SCH ×4 (08:21→22:09)
[2017-06-07] MEDS: SACUBITRIL/VALSARTAN 24/26MG TABLET. PO SCH ×2 (08:22→22:09)
[2017-06-07] MEDS: ENOXAPARIN 30 MG/0.3 ML DISP.SYRIN. SQ SCH (08:22)
--- NOTE | 2017-06-07 09:13 | NUR ---
NSG NOTE; DR QUINONEZ CONSULT, [facility] CALLED TO OFFICE STAFF AT 0915. ROSA ELENA TORIBIO AND DR CHANDLER HERE TO SEE PT THIS AM
--- NOTE | 2017-06-07 09:24 | PDOC2 ---
CONSULT The patient has been seen and examined and the full consult has been dictated.~ I have summarized the most important points for review while the note is being transcribed.~ Please see the dictation for complete details. I have participated in the care of this patient and I have reviewed and agree with all pertinent clinical information above including history, exam, and recommendations. Briefly this is an 80-year-old gentleman admitted with syncope. He denies any shortness of breath. Constitutional: Well developed, well nourished, no acute distress, non-toxic appearance. HENT: Normocephalic, atraumatic, bilateral external ears normal, oropharynx moist, no oral exudates, nose normal. Eyes: ABEBA, EOMI, conjunctiva normal, no discharge. Neck: Normal range of motion, no tenderness, supple, no stridor. Cardiovascular: 3/6 systolic murmur Thorax and Lungs: extensive crackles on the right side Abdomen: Bowel sounds normal, soft, no tenderness, no masses, no pulsatile masses. Skin: Warm, dry, no erythema, no rash. Back: No tenderness, no CVA tenderness. Extremities: Intact distal pulses, no tenderness, no cyanosis, no clubbing, ROM intact, no edema. Neurologic: Alert and oriented X 3, normal motor function, normal sensory function, no focal deficits noted. Psychologic: Affect normal, judgement normal, mood normal. Summary: Syncope: Likely secondary to hypotension. I had seen the patient recently and his blood pressures were in the 90s. He is on cardiac medications which could have worsened it. His pressures have now improved. He is on Midrin which we shall hopefully discontinue soon Ischemic cardiomyopathy: He is euvolemic. He is on an entresto his most recent ejection fraction was 20%. we do not have him on a beta roscoe as blood pressure is too low. Coronary artery disease: He had multivessel disease by his last cardiac catheterization, and he was recommended CABG but was thought to be too high risk or the patient refused. Nonrheumatic mitral regurgitation: The patient has mild to moderate mitral regurgitation by his echo. Peripheral vascular disease: He has had ischemic osteomyelitis and has had work done by a vascular surgeon. Hypercholesterolemia: He is on statins, simvastatin 40 mg. Parkinson's disease: He is on treatment and may have contributed to his fall Problems: ALEXA CHANDLER MD Jun 07, 2017 09:24
--- NOTE | 2017-06-07 10:01 | PDOC2 ---
CONSULT Date of Admission DATE: 06/07/17 TIME: 09:46 Reason for Consult: Congestive heart failure Referring Physician: Dr Cruz Problem List Problems Medical Problems: (1) Altered level of consciousness Status: Acute (2) CHF (congestive heart failure) Status: Acute (3) Chronic anemia Status: Acute (4) Hypomagnesemia Status: Acute (5) Urinary tract infection Status: Acute History of Present Illness This is a 86 year old male who was brought in to the ER via EMS after having a syncopal episode at the [facility]. He has a history of severe three vessel coronary artery disease for which he has been on medical therapy, ischemic cardiomyopathy, chronic systolic heart failure, sick sinus syndrome Status post pacemaker placement, hypertension, hyperlipidemia, type 2 diabetes mellitus, and stage 3 chronic kidney disease. recently he was admitted to [facility] with decompensated heart failure. An echocardiogram was done that showed his ejection fraction was 20%. And he was diuresed. He continued to have moderate sized pleural effusions so he underwent a thoracentesis and 1700 cc were drained off of 1 of his lungs. His breathing had significantly improved after this procedure and he was discharged To rehab. Over last week he has been feeling more tired and weak. His legs have felt unbalanced. He does not remember the exact events that brought him in to the emergency room but reading the nurses noes, they had tried to get him up for breakfast and upon trying to stand up he passed out. Upon taking his blood pressure was in the 60 systolic so they called EMS. Over the weekend he was given IV fluids and started on midodrine and his Lasix was held. This morning he is feeling better his breathing is at baseline and he denies any chest pain, palpitations, lightheadedness and feels like he is getting stronger. Past Medical/Surgical History CARDIOVASCULAR: Y - chronic diastolic heart failure other primary cardiomyopathies Arrhythmia: Y - Sinus Bradycardia High Cholesterol: Y - unspecified hyperlipidemia Hypertension: Y - Benign hypertensive heart disease Orthostatic Hypotension Chronic Kidney Disease: Y - Stage Hearing Loss: Y Vertigo: Y - Dizziness, giddiness Diabetes: Y - Type 2 Parkinson's Disease: Y Allergies- no known drug allergies Medications-see below Family History Father - Myocardial infarction ( age: 80) Mother - Diabetes mellitus ( age: 75) Sister - Diabetes mellitus ( age: 75) Social History - he is currently Residing at [facility] in the rehab center. Occupation: Retired Marital status: Diet: Regular Smoking Status: Former smoker (Notes: Quit 1966) Smoker (1/2 PPD) Tobacco-years of use: 6 Alcohol intake: None Review of systems- review of 10 organ systems is negative except for as above. Physical Exam Patient is an 86-year-old male. GENERAL: This is a well developed, well nourished male. No apparent distress. SKIN: Warm and dry with normal skin turgor.Positive for pallor. No lesions or rashes noted. EYES: Conjunctiva are clear. Extraocular movements are intact. No xanthelasma. HEAD AND NECK: Oral mucosa is moist. There is no cyanosis. Neck is supple. Jugular venous pressure is flat. Carotid pulses are 2/2 bilaterally. No carotid bruits. There is no obvious thyromegaly. HEART: Regular rate and rhythm. Normal S1 and S2. No S3. No S4. +systolic murmur LUNGS: Effort is good. There is symmetric expansion bilaterally. Diminished. ABDOMEN: Normal active bowel sounds. Soft. Nontender. EXTREMITIES: No clubbing. No cyanosis. No edema of lower extremities. Palpable pedal pulses. MUSCULOSKELETAL: No kyphosis. No scoliosis. No localized tenderness or stiffness. Gait appears normal. NEUROLOGIC: Alert and oriented times three. Cranial nerves III-XII are grossly intact. Good motor tone and strength in the upper and lower extremities bilaterally. PSYCHOLOGIC: This is a pleasant patient with a normal affect. Procedure: ECHOCARDIOGRAM IMPRESSION (10/01/2015):. This is a technically difficult study There is moderate to severe left ventricular systolic dysfunction with an estimated ejection fraction of 30-35%. There is evidence of impaired left ventricular relaxation suggestive of stage I diastolic dysfunction. There is mild aortic valve sclerosis. There is mild mitral annular calcification. There is moderate mitral regurgitation. Compared to the report (images were not available for review) of the study dated 09/22/2013, the ejection fraction has decreased and the mitral regurgitation has increased, but the left atrial dilatation and the and the pulmonary hypertension was not seen. ECHOCARDIOGRAM IMPRESSION (09/24/2014): There is paradoxical septal motion consistent with a pacemaker. There is mild left ventricular systolic dysfunction with an estimated ejection fraction of 40- 45% with regional wall motion abnormalities. There is evidence of decreased diastolic compliance of the left ventricle consistent with mild diastolic dysfunction. The left atrium appears mildly dilated. The estimated pulmonary artery systolic pressure is 43 mmHg, consistent with mild pulmonary hypertension. Compared to the report (images were not available for review) of the study dated 04/08/2012, there has been a decrease in the ejection fraction. HOLTER MONITOR IMPRESSION (11/02/2013): 1. Baseline sinus bradycardia with an average heart rate of 51 beats per minute , ranging from 26 to 92 beats per minute with occasional supraventricular and ventricular ectopy as outlined above. There was no high-grade ectopy. 2. No symptoms were reported. Assessment / Plan Syncope - due to Hypotension/ hypovolemia. Better after holding Lasix and giving IV fluid. Started on midodrine. Severe 3 vessel coronary artery disease being treated with medical management. History of CA. Refused further catheterization and bypass surgery. We will continue optimal medical therapy Congestive heart failure, chronic, systolic. Clinically compensated Continue to weigh daily and call if weight fluctuates more than 3 pounds overnight or 5 pounds in one week. Sick sinus syndrome s/p permanent pacemaker implantation. Hypertension, controlled. Continue present anti-hypertensive medication. Ischemic cardiomyopathy, His last ejection fraction was at 20%. Continue and Entresto at this point we will hold off on beta-roscoe due to hypotension.. Hyperlipidemia. His goal LDL is < 70 mg/dL. Continue statin. Current Medications Current Medications Ceftriaxone Sodium 1 gm/ Sodium Chloride 50 ml @ 100 mls/hr 1X ONCE IV ; Start 06/05/17 at 12:15; Stop 06/05/17 at 12:44; Status UNV Magnesium Oxide (Magnesium Oxide) 400 mg 1X ONCE PO Last administered on at 12:30; Start 06/05/17 at 12:30; Stop 06/05/17 at 12:31; Status DC Ceftriaxone Sodium (Rocephin) 1 gm 1X ONCE IVP Last administered on 06/05/17at 12:30; Start 06/05/17 at 12:30; Stop 06/05/17 at 12:31; Status DC Acetaminophen (Tylenol) 650 mg PRN Q6HRS PRN PO PAIN / TEMP Last administered on 06/05/17at 21:27; Start 06/05/17 at 17:15 Albuterol Sulfate (Ventolin) 2.5 mg PRN Q4HRS PRN NEB SHORTNESS OF AIR; Start 06/05/17 at 17:15 Aspirin (Children'S Aspirin) 81 mg DAILY PO Last administered on 06/07/17 08:21 ; Start 06/06/17 at 09:00 Bisacodyl (Dulcolax Supp) 10 mg PRN DAILY PRN RC CONSTIPATION; Start 06/05/17 at 17:15 Calcium/Vitamin D (Oscal D 500mg/ 200uts) 1 tab BID PO Last administered on 06/07 08:21; Start 06/05/17 at 21:00 Carbidopa/Levodopa (Sinemet 25/100) 1 tab QID PO Last administered on 06/07/17 08:21; Start 06/05/17 at 21:00 Acetaminophen/ Hydrocodone Bitart (Lortab 7.5/325) 1 tab PRN Q6HRS PRN PO PAIN ; Start 06/05/17 at 17:15 Insulin Aspart (NovoLOG) 1 units TIDBFRMEAL PRN SQ HIGH BLOOD SUGAR; Start 06/05 at 17:15; Status UNV Sacubitril/ Valsartan (Entresto 24 Mg-26 Mg) 1 tab BID PO Last administered on 06/07/17 08:22; Start 06/05/17 at 21:00 Simvastatin (Zocor) 40 mg QHS PO Last administered on 06/06/17 20:33; Start 06/05/17 at 21:00 Lactobacillus Rhamnosus (Culturelle) 1 cap BID PO Last administered on 08:21; Start 06/05/17 at 21:00 Pantoprazole Sodium (Protonix) 40 mg DAILY PO Last administered on 06/07/17 08: 21; Start 06/06/17 at 09:00 Midodrine (Proamatine) 2.5 mg [id number] PO Last administered on 06/07/17 08:21; Start 06/05/17 at 18:00 Insulin Aspart (NovoLOG) 0-7 UNITS QIDACHS SQ Last administered on 06/06/17 18: 19; Start 06/05/17 at 21:00 Dextrose 12.5 gm PRN Q15MIN PRN IV SEE COMMENTS; Start 06/05/17 at 17:45 Ceftriaxone Sodium 1 gm/ Sodium Chloride 50 ml @ 100 mls/hr Q24H IV ; Start 06/06/17 at 13:00; Stop 06/06/17 at 13:00; Status DC Ceftriaxone Sodium (Rocephin) 1 gm Q24H IVP Last administered on 06/06/17at 12:45 ; Start 06/06/17 at 13:00 Enoxaparin Sodium (Lovenox) 30 mg Q24H SQ Last administered on 06/07/17at 08:22; Start 06/06/17 at 09:00 Magnesium Chloride (Mag Delay) 64 mg DAILY PO Last administered on 06/07/17at 08: 21; Start 06/06/17 at 09:30 Active Scripts Active Reported Novolog Flexpen (Insulin Aspart) 100 Unit/1 Ml Insuln.pen 1 Unit SQ TIDBFRMEAL PRN LAST DOSE GIVEN: DATE: TIME: NEXT DOSE DUE: DATE: TIME: Entresto 24 mg-26 mg Tablet (Sacubitril/Valsartan) 1 Each Tablet 1 Each PO BID LAST DOSE GIVEN: DATE: TIME: NEXT DOSE DUE: DATE: TIME: Albuterol Sulfate Neb Soln (Albuterol Sulfate) 2.5 Mg/3 Ml Vial.neb 1 Vial NEB PRN Q4HRS PRN LAST DOSE GIVEN: DATE: TIME: NEXT DOSE DUE: DATE: TIME: Furosemide 40 Mg Tablet 1 Tab PO DAILY LAST DOSE GIVEN: DATE: TIME: NEXT DOSE DUE: DATE: TIME: Tylenol (Acetaminophen) 325 Mg Tablet 2 Tab PO PRN Q6HRS PRN LAST DOSE GIVEN: DATE: TIME: NEXT DOSE DUE: DATE: TIME: Bisacodyl 10 Mg Supp.rect 10 Mg RC PRN DAILY PRN LAST DOSE GIVEN: DATE: TIME: NEXT DOSE DUE: DATE: TIME: Hydrocodone-Apap 7.5-325 (Hydrocodone Bit/Acetaminophen) 1 Each Tablet 1 Tab PO PRN Q6HRS PRN LAST DOSE GIVEN: DATE: TIME: NEXT DOSE DUE: DATE: TIME: Acidophilus (Lactobacillus Acidophilus) 1 Each Capsule 2 Each PO BID LAST DOSE GIVEN: DATE: TIME: NEXT DOSE DUE: DATE: TIME: Simvastatin 20 Mg Tablet 2 Tab PO QHS LAST DOSE GIVEN: DATE: TIME: NEXT DOSE DUE: DATE: TIME: Omeprazole 40 Mg Capsule.dr 1 Cap PO DAILY LAST DOSE GIVEN: DATE: TIME: NEXT DOSE DUE: DATE: TIME: Sinemet 25-100 Mg Tablet (Carbidopa/Levodopa) 1 Each Tablet 1 Tab PO QID LAST DOSE GIVEN: DATE: TIME: NEXT DOSE DUE: DATE: TIME: Calcium 500 + Vit D 200 Tablet (Calcium Carbonate/Vitamin D3) 1 Each Tablet 1 Each PO BID LAST DOSE GIVEN: DATE: TIME: NEXT DOSE DUE: DATE: TIME: Aspirin 81 Mg Tab.chew 81 Mg PO DAILY LAST DOSE GIVEN: DATE: TIME: NEXT DOSE DUE: DATE: TIME: Allergies: Coded Allergies: NKMA (Verified Allergy, Unknown, 05/04/17) VITALS Vital Signs Date Time Temp Pulse Resp B/P (MAP) Pulse Ox O2 Delivery O2 Flow Rate FiO2 06/07/17 08:22 53 160/60 06/06/17 23:45 97.9 95 Room Air 06/06/17 19:47 18 Labs Laboratory Tests Test 06/05/17 10:07 06/05/17 10:08 06/05/17 10:50 06/05/17 11:34 Glucose (Fingerstick) 91 mg/dL (70-99) White Blood Count 11.2 x10^3/uL (4.0-11.0) Red Blood Count 3.08 x10^6/uL (4.30-5.70) Hemoglobin 9.5 g/dL (13.0-17.5) Hematocrit 28.8 % (39.0-53.0) Mean Corpuscular Volume 94 fL (79-100) Mean Corpuscular Hemoglobin 31 pg (25-35) Mean Corpuscular Hemoglobin Concent 33 g/dL (31-37) Red Cell Distribution Width 17.9 % (11.5-14.5) Platelet Count 159 x10^3/uL (140-400) Neutrophils (%) (Auto) 85 % (31-73) Lymphocytes (%) (Auto) 9 % (24-48) Monocytes (%) (Auto) 3 % (0-9) Eosinophils (%) (Auto) 3 % (0-3) Basophils (%) (Auto) 0 % (0-3) Neutrophils # (Auto) 9.6 x10^3uL (1.8-7.7) Lymphocytes # (Auto) 1.0 x10^3/uL (1.0-4.8) Monocytes # (Auto) 0.3 x10^3/uL (0.0-1.1) Eosinophils # (Auto) 0.3 x10^3/uL (0.0-0.7) Basophils # (Auto) 0.0 x10^3/uL (0.0-0.2) Prothrombin Time 11.1 SEC (9.4-11.4) Prothromb Time International Ratio 1.1 (0.9-1.1) Lactic Acid Level 1.9 mmol/L (0.4-2.0) Troponin I Quantitative 0.020 ng/mL (0-0.055) Sodium Level 140 mmol/L (136-145) Potassium Level 3.7 mmol/L (3.5-5.1) Chloride Level 101 mmol/L (98-107) Carbon Dioxide Level 32 mmol/L (21-32) Anion Gap 7 (6-14) Blood Urea Nitrogen 26 mg/dL (8-26) Creatinine 1.3 mg/dL (0.7-1.3) Estimated GFR (Cockcroft-Gault) 52.1 BUN/Creatinine Ratio 20 (6-20) Glucose Level 128 mg/dL (70-99) Calcium Level 8.7 mg/dL (8.5-10.1) Magnesium Level 1.6 mg/dL (1.8-2.4) Total Bilirubin 0.4 mg/dL (0.2-1.0) Aspartate Amino Transf (AST/SGOT) 14 U/L (15-37) Alanine Aminotransferase (ALT/SGPT) < 6 U/L (16-63) Alkaline Phosphatase 85 U/L (46-116) Creatine Kinase 21 U/L (39-308) Creatine Kinase MB (Mass) 1.7 ng/mL (0.0-3.6) Creatine Kinase MB Relative Index 8.1 % (0-4) KJ-Bbh-R-Type Natriuretic Peptide 58891 pg/mL (0-449) Total Protein 6.2 g/dL (6.4-8.2) Albumin 2.1 g/dL (3.4-5.0) Albumin/Globulin Ratio 0.5 (1.0-1.7) Lipase 31 U/L (73-393) Urine Collection Type Void Urine Color Yellow Urine Clarity Hazy Urine pH 5.5 Urine Specific [place] 1.015 Urine Protein 100 mg/dl (NEG-TRACE) Urine Glucose (UA) Neg mg/dL (NEG) Urine Ketones (Stick) Trace mg/dL (NEG) Urine Blood Neg (NEG) Urine Nitrite Neg (NEG) Urine Bilirubin Neg (NEG) Urine Urobilinogen Dipstick 0.2 mg/dL (0.2 mg/dL) Urine Leukocyte Esterase Trace (NEG) Urine RBC 0 /HPF (0-2) Urine WBC 11-20 /HPF (0-4) Urine Squamous Epithelial Cells Occ /LPF Urine Bacteria Mod /HPF (0-FEW) Test 06/05/17 13:40 06/05/17 21:26 06/06/17 07:26 06/06/17 07:37 Nasal Screen MRSA (PCR) Negative (Negative) Glucose (Fingerstick) 168 mg/dL (70-99) 95 mg/dL (70-99) White Blood Count 8.2 x10^3/uL (4.0-11.0) Red Blood Count 2.62 x10^6/uL (4.30-5.70) Hemoglobin 8.3 g/dL (13.0-17.5) Hematocrit 24.4 % (39.0-53.0) Mean Corpuscular Volume 93 fL (79-100) Mean Corpuscular Hemoglobin 32 pg (25-35) Mean Corpuscular Hemoglobin Concent 34 g/dL (31-37) Red Cell Distribution Width 17.4 % (11.5-14.5) Platelet Count 128 x10^3/uL (140-400) Sodium Level 141 mmol/L (136-145) Potassium Level 3.9 mmol/L (3.5-5.1) Chloride Level 103 mmol/L (98-107) Carbon Dioxide Level 35 mmol/L (21-32) Anion Gap 3 (6-14) Blood Urea Nitrogen 32 mg/dL (8-26) Creatinine 1.7 mg/dL (0.7-1.3) Estimated GFR (Cockcroft-Gault) 38.2 Glucose Level 93 mg/dL (70-99) Calcium Level 8.6 mg/dL (8.5-10.1) Magnesium Level 1.7 mg/dL (1.8-2.4) Test 06/06/17 11:32 06/06/17 16:23 06/06/17 19:55 06/07/17 07:34 Glucose (Fingerstick) 145 mg/dL (70-99) 173 mg/dL (70-99) 162 mg/dL (70-99) 92 mg/dL (70-99) SAM ROSENTHAL APRN Jun 07, 2017 10:01
[2017-06-07 10:36] VITALS: BP 165/72
[2017-06-07] MEDS: cefTRIAXone IV Push 1 GM VIAL. IVP SCH (13:20)
[2017-06-07 14:36] VITALS: BP 153/53
--- NOTE | 2017-06-07 17:00 | NUR ---
wound care patient seen per wound care consult. see wound assessment. patient has a stage 2 pressure ulcer to the coccyx, the wound was cleaned and redressed at this time with a contact layer and foam dressing over, recommendations of changing every 3 days. patient also has a right foot TMA healing incision from surgery at [facility] by Dr. Garcia on 05/12/17. patients steri-strips removed at this time, the steri-strips had a brown drainage over the incision, the area was cleaned and new steri-strips applied and gauze and tape applied over the steri-strips, recommendations of changing the gauze and tape, every other day. patient has a surgical shoe for the right foot. notified JEREMIAH Muhammad about the POC and wound care will continue to f/u for possible changes.
[2017-06-07 19:30] VITALS: BP 161/64
[2017-06-07] MEDS: SIMVASTATIN 40 MG TABLET. PO SCH (22:08)
[2017-06-07 22:12] VITALS: BP 164/76
[2017-06-08] MEDS: MIDODRINE 2.5 MG TABLET PO SCH (06:10)
[2017-06-08 06:28] LABS: BASO % 1 % (0-3); EOS # 0.2 x10^3/uL (0.0-0.7); EOS % 3 % (0-3); HEMATOCRIT 22.8 % (39.0-53.0); HEMOGLOBIN 7.6 g/dL (13.0-17.5); LYMPH # 1.7 x10^3/uL (1.0-4.8); LYMPH % 22 % (24-48); MEAN CORPUSCULAR HEMOGLOBIN 31 pg (25-35); MEAN CORPUSCULAR HGB CONC 33 g/dL (31-37); MEAN CORPUSCULAR VOLUME 93 fL (79-100); MONO # 0.5 x10^3/uL (0.0-1.1); MONO % 7 % (0-9); NEUT # 5.2 x10^3uL (1.8-7.7); NEUT % 68 % (31-73); PLATELET COUNT 123 x10^3/uL (140-400); RED BLOOD COUNT 2.44 x10^6/uL (4.30-5.70); RED CELL DISTRIBUTION WIDTH 17.1 % (11.5-14.5); WHITE BLOOD COUNT 7.6 x10^3/uL (4.0-11.0)
[2017-06-08 06:39] LABS: CALCIUM 8.7 mg/dL (8.5-10.1); CREATININE 1.4 mg/dL (0.7-1.3); GFR 47.8; MAGNESIUM 1.9 mg/dL (1.8-2.4); POTASSIUM 4.1 mmol/L (3.5-5.1)
[2017-06-08] MEDS: INSULIN ASPART 300 UNITS/3 ML INSULN.PEN SQ SCH (07:30)
--- NOTE | 2017-06-08 07:32 | PN ---
DATE: 06/07/2017 SUBJECTIVE: The patient is an 86-year-old male who has been having some syncope, probably related to his hypotension. Apparently, he had a syncopal episode out at the [place] and has been doing much better since he got into the hospital, rehydrated, he was probably fairly dehydrated. In any case, the patient is resting fairly comfortably and making fairly good progress overall. He has been seen by Dr. Pro, swing grinder. OBJECTIVE: VITAL SIGNS: Blood pressure 150/53, respiratory rate 20, pulse 63, afebrile. GENERAL: The patient is alert. LUNGS: Diminished throughout; poor movement of air, particularly in the left lower lung base. Some rhonchi noted in the bases. CARDIOVASCULAR: Regular sinus rhythm, S1, S2 positive; 2/6 systolic ejection murmur. ABDOMEN: Soft, nontender. EXTREMITIES: No clubbing, cyanosis or edema per se. Feet, healing up fairly well from his osteomyelitis that he had some time ago. NEUROLOGIC: Alert and oriented. Poor dentition. IMPRESSION: Hypotension, altered level of consciousness, congestive heart failure, chronic anemia, hypomagnesemia, urinary tract infection, history of osteomyelitis, type 2 diabetes, ischemic cardiomyopathy, sick sinus syndrome, permanent pacemaker implantation, severe 3-vessel coronary artery disease. PLAN: The patient will be monitored carefully, make further evaluation on him as indicated. Otherwise, probably stable, maybe we will go ahead and possibly ready for discharge back to the rehab facility in the morning. GENEVIEVE MORALES MD DR: IVON/my JOB#: [id number] / [id number]
[2017-06-08] MEDS: ENOXAPARIN 30 MG/0.3 ML DISP.SYRIN. SQ SCH (09:00)
--- NOTE | 2017-06-08 10:01 | PDOC ---
SAM ROSENTHAL CONFERENCE PLANNING MANAGER 06/08/17 1001: PROGRESS NOTES Diagnosis Problem Problems Medical Problems: (1) Altered level of consciousness Status: Acute (2) CHF (congestive heart failure) Status: Acute (3) Chronic anemia Status: Acute (4) Hypomagnesemia Status: Acute (5) Urinary tract infection Status: Acute Assessment Problems We are seeing the patient for congestive heart failure Syncope - due to Hypotension/ hypovolemia. None further. Improved Severe 3 vessel coronary artery disease being treated with medical management. History of LA. Refused further catheterization and bypass surgery. We will continue optimal medical therapy Congestive heart failure, chronic, systolic. Clinically compensated Continue to weigh daily and call if weight fluctuates more than 3 pounds overnight or 5 pounds in one week. Sick sinus syndrome s/p permanent pacemaker implantation. Hypertension, elevated. Stop Midodrine now that fluid replaced and check orthostatics Ischemic cardiomyopathy, His last ejection fraction was at 20%. Continue and Entresto at this point we will hold off on beta-roscoe due to hypotension.. Hyperlipidemia. His goal LDL is < 70 mg/dL. Continue statin. Problems: Subjective He is feeling better and stronger. Walked to PT room without lightheadedness. He denies chest pain or dyspnea. Objective Vital Signs Date Time Temp Pulse Resp B/P (MAP) Pulse Ox O2 Delivery O2 Flow Rate FiO2 06/08/17 08:00 Room Air 06/08/17 06:10 65 164/76 06/07/17 22:12 97.4 20 100 Intake and Output 06/08/17 07:00 Intake Total 360 ml Balance 360 ml Intake Oral 360 ml # Voids 3 # Bowel Movements 3 Abdomen: Normal bowel sounds, Soft, No tenderness Heart: Regular rate, Normal S1, Normal S2 Extremities: No edema, Normal pulses General: Alert, Oriented X3, Cooperative HEENT: EOMI, Mucous membr. moist/pink Lungs: Other (diminished) Review of Relevant I have reviewed the following items tasneem (where applicable) has been applied. Labs Laboratory Tests Test 06/06/17 11:32 06/06/17 16:23 06/06/17 19:55 06/07/17 07:34 Glucose (Fingerstick) 145 mg/dL (70-99) 173 mg/dL (70-99) 162 mg/dL (70-99) 92 mg/dL (70-99) Test 06/07/17 11:41 06/07/17 16:16 06/07/17 21:49 06/08/17 06:09 Glucose (Fingerstick) 114 mg/dL (70-99) 163 mg/dL (70-99) 128 mg/dL (70-99) White Blood Count 7.6 x10^3/uL (4.0-11.0) Red Blood Count 2.44 x10^6/uL (4.30-5.70) Hemoglobin 7.6 g/dL (13.0-17.5) Hematocrit 22.8 % (39.0-53.0) Mean Corpuscular Volume 93 fL (79-100) Mean Corpuscular Hemoglobin 31 pg (25-35) Mean Corpuscular Hemoglobin Concent 33 g/dL (31-37) Red Cell Distribution Width 17.1 % (11.5-14.5) Platelet Count 123 x10^3/uL (140-400) Neutrophils (%) (Auto) 68 % (31-73) Lymphocytes (%) (Auto) 22 % (24-48) Monocytes (%) (Auto) 7 % (0-9) Eosinophils (%) (Auto) 3 % (0-3) Basophils (%) (Auto) 1 % (0-3) Neutrophils # (Auto) 5.2 x10^3uL (1.8-7.7) Lymphocytes # (Auto) 1.7 x10^3/uL (1.0-4.8) Monocytes # (Auto) 0.5 x10^3/uL (0.0-1.1) Eosinophils # (Auto) 0.2 x10^3/uL (0.0-0.7) Basophils # (Auto) 0.0 x10^3/uL (0.0-0.2) Sodium Level 143 mmol/L (136-145) Potassium Level 4.1 mmol/L (3.5-5.1) Chloride Level 105 mmol/L (98-107) Carbon Dioxide Level 32 mmol/L (21-32) Anion Gap 6 (6-14) Blood Urea Nitrogen 33 mg/dL (8-26) Creatinine 1.4 mg/dL (0.7-1.3) Estimated GFR (Cockcroft-Gault) 47.8 Glucose Level 102 mg/dL (70-99) Calcium Level 8.7 mg/dL (8.5-10.1) Magnesium Level 1.9 mg/dL (1.8-2.4) Test 06/08/17 07:58 Glucose (Fingerstick) 90 mg/dL (70-99) Microbiology 06/05/17 Blood Culture - Preliminary, Resulted NO GROWTH AFTER 2 DAYS 06/05/17 Urine Culture - Final, Complete 06/05/17 Urine Culture Result 1 (NICO) - Final, Complete Medications Current Medications Ceftriaxone Sodium 1 gm/ Sodium Chloride 50 ml @ 100 mls/hr 1X ONCE IV ; Start 06/05/17 at 12:15; Stop 06/05/17 at 12:44; Status UNV Magnesium Oxide (Magnesium Oxide) 400 mg 1X ONCE PO Last administered on at 12:30; Start 06/05/17 at 12:30; Stop 06/05/17 at 12:31; Status DC Ceftriaxone Sodium (Rocephin) 1 gm 1X ONCE IVP Last administered on 06/05/17at 12:30; Start 06/05/17 at 12:30; Stop 06/05/17 at 12:31; Status DC Acetaminophen (Tylenol) 650 mg PRN Q6HRS PRN PO PAIN / TEMP Last administered on 06/05/17at 21:27; Start 06/05/17 at 17:15 Albuterol Sulfate (Ventolin) 2.5 mg PRN Q4HRS PRN NEB SHORTNESS OF AIR; Start 06/05/17 at 17:15 Aspirin (Children'S Aspirin) 81 mg DAILY PO Last administered on 06/07/17at 08:21 ; Start 06/06/17 at 09:00 Bisacodyl (Dulcolax Supp) 10 mg PRN DAILY PRN RC CONSTIPATION; Start 06/05/17 at 17:15 Calcium/Vitamin D (Oscal D 500mg/ 200uts) 1 tab BID PO Last administered on 06/07at 22:09; Start 06/05/17 at 21:00 Carbidopa/Levodopa (Sinemet 25/100) 1 tab QID PO Last administered on 06/07/17at 22:09; Start 06/05/17 at 21:00 Acetaminophen/ Hydrocodone Bitart (Lortab 7.5/325) 1 tab PRN Q6HRS PRN PO PAIN ; Start 06/05/17 at 17:15 Insulin Aspart (NovoLOG) 1 units TIDBFRMEAL PRN SQ HIGH BLOOD SUGAR; Start 06/05 at 17:15; Status UNV Sacubitril/ Valsartan (Entresto 24 Mg-26 Mg) 1 tab BID PO Last administered on 06/07/17 22:09; Start 06/05/17 at 21:00 Simvastatin (Zocor) 40 mg QHS PO Last administered on 06/07/17 22:08; Start 06/05/17 at 21:00 Lactobacillus Rhamnosus (Culturelle) 1 cap BID PO Last administered on 22:09; Start 06/05/17 at 21:00 Pantoprazole Sodium (Protonix) 40 mg DAILY PO Last administered on 06/07/17 08: 21; Start 06/06/17 at 09:00 Midodrine (Proamatine) 2.5 mg [id number] PO Last administered on 06/08/17 06:10; Start 06/05/17 at 18:00 Insulin Aspart (NovoLOG) 0-7 UNITS QIDACHS SQ Last administered on 06/07/17at 17: 33; Start 06/05/17 at 21:00 Dextrose 12.5 gm PRN Q15MIN PRN IV SEE COMMENTS; Start 06/05/17 at 17:45 Ceftriaxone Sodium 1 gm/ Sodium Chloride 50 ml @ 100 mls/hr Q24H IV ; Start 06/06/17 at 13:00; Stop 06/06/17 at 13:00; Status DC Ceftriaxone Sodium (Rocephin) 1 gm Q24H IVP Last administered on 06/07/17at 13:20 ; Start 06/06/17 at 13:00 Enoxaparin Sodium (Lovenox) 30 mg Q24H SQ Last administered on 06/07/17 08:22; Start 06/06/17 at 09:00 Magnesium Chloride (Mag Delay) 64 mg DAILY PO Last administered on 06/07/17 08: 21; Start 06/06/17 at 09:30 Active Scripts Active Reported Novolog Flexpen (Insulin Aspart) 100 Unit/1 Ml Insuln.pen 1 Unit SQ TIDBFRMEAL PRN LAST DOSE GIVEN: DATE: TIME: NEXT DOSE DUE: DATE: TIME: Entresto 24 mg-26 mg Tablet (Sacubitril/Valsartan) 1 Each Tablet 1 Each PO BID LAST DOSE GIVEN: DATE: TIME: NEXT DOSE DUE: DATE: TIME: Albuterol Sulfate Neb Soln (Albuterol Sulfate) 2.5 Mg/3 Ml Vial.neb 1 Vial NEB PRN Q4HRS PRN LAST DOSE GIVEN: DATE: TIME: NEXT DOSE DUE: DATE: TIME: Furosemide 40 Mg Tablet 1 Tab PO DAILY LAST DOSE GIVEN: DATE: TIME: NEXT DOSE DUE: DATE: TIME: Tylenol (Acetaminophen) 325 Mg Tablet 2 Tab PO PRN Q6HRS PRN LAST DOSE GIVEN: DATE: TIME: NEXT DOSE DUE: DATE: TIME: Bisacodyl 10 Mg Supp.rect 10 Mg RC PRN DAILY PRN LAST DOSE GIVEN: DATE: TIME: NEXT DOSE DUE: DATE: TIME: Hydrocodone-Apap 7.5-325 (Hydrocodone Bit/Acetaminophen) 1 Each Tablet 1 Tab PO PRN Q6HRS PRN LAST DOSE GIVEN: DATE: TIME: NEXT DOSE DUE: DATE: TIME: Acidophilus (Lactobacillus Acidophilus) 1 Each Capsule 2 Each PO BID LAST DOSE GIVEN: DATE: TIME: NEXT DOSE DUE: DATE: TIME: Simvastatin 20 Mg Tablet 2 Tab PO QHS LAST DOSE GIVEN: DATE: TIME: NEXT DOSE DUE: DATE: TIME: Omeprazole 40 Mg Capsule.dr 1 Cap PO DAILY LAST DOSE GIVEN: DATE: TIME: NEXT DOSE DUE: DATE: TIME: Sinemet 25-100 Mg Tablet (Carbidopa/Levodopa) 1 Each Tablet 1 Tab PO QID LAST DOSE GIVEN: DATE: TIME: NEXT DOSE DUE: DATE: TIME: Calcium 500 + Vit D 200 Tablet (Calcium Carbonate/Vitamin D3) 1 Each Tablet 1 Each PO BID LAST DOSE GIVEN: DATE: TIME: NEXT DOSE DUE: DATE: TIME: Aspirin 81 Mg Tab.chew 81 Mg PO DAILY LAST DOSE GIVEN: DATE: TIME: NEXT DOSE DUE: DATE: TIME: Vitals/I & O Vital Sign - Last 24 Hours 06/07/17 06/07/17 06/07/17 06/07/17 10:36 13:19 14:36 17:31 Temp 97.8 98.2 Pulse 64 64 63 63 Resp 16 20 B/P (MAP) 165/72 (103) 165/72 153/53 (86) 153/53 Pulse Ox 96 99 O2 Delivery Room Air Room Air 06/07/17 06/07/17 06/07/17 06/07/17 19:30 20:00 22:09 22:12 Temp 97.4 97.4 Pulse 67 67 65 Resp 20 20 B/P (MAP) 161/64 (96) 161/64 164/76 (105) Pulse Ox 99 100 O2 Delivery Room Air Room Air Room Air 06/08/17 06/08/17 06:10 08:00 Pulse 65 B/P (MAP) 164/76 O2 Delivery Room Air Intake and Output 06/07/17 06/07/17 06/08/17 15:00 23:00 07:00 Intake Total 240 ml 120 ml Balance 240 ml 120 ml NUNU BAR Jr, MD 06/09/17 0600: PROGRESS NOTES Assessment The patient was seen by Sam Rosenthal APRN and I have reviewed her findings and plan and agree with above. Due to staffing constraints, we did not have an attending available on this day to see the patient. Nunu Bar Jr., MD Problems: SAM ROSENTHAL APRN Jun 08, 2017 10:01 NUNU BAR Jr, MD Jun 09, 2017 06:00
[2017-06-08] MEDS: MAGNESIUM CHLORIDE ER 64 MG TABLET.ER PO SCH (10:16)
[2017-06-08] MEDS: PANTOPRAZOLE 40 MG TABLET. PO SCH (10:16)
[2017-06-08 10:17] VITALS: BP 164/76
[2017-06-08] MEDS: ASPIRIN 81 MG TAB.CHEW PO SCH (10:17)
[2017-06-08] MEDS: CALCIUM CARB/VIT D3 500/200 TABLET PO SCH (10:17)
[2017-06-08] MEDS: LACTOBACILLUS RHAMNOSUS GG 1 CAPSULE. PO SCH (10:17)
[2017-06-08] MEDS: CARBIDOPA/LEVODOPA 25/100MG TABLET PO SCH (10:17)
[2017-06-08] MEDS: SACUBITRIL/VALSARTAN 24/26MG TABLET. PO SCH (10:17)
--- NOTE | 2017-06-08 14:35 | NUR ---
NSG NOTE; TRANSFER TO [facility] REPORT CALLED TO [facility]. TRANSFER AT 1430 VIA W/C ACCOMP BY TRANSPORT PERSONNEL.
== END 2017-06-08 14:30 | disposition home or self-care (01) | DRG 314 ==
LOC: ER 09:35 → 1 SOUTH 13:06
PROVIDERS: ADMIT Family Medicine; ATTEND Family Medicine
DX: I95.9 Hypotension, unspecified (principal); E43 Unspecified severe protein-calorie malnutrition; I50.43 Acute on chronic combined systolic (congestive) and diastolic (congestive) heart failure; E11.22 Type 2 diabetes mellitus with diabetic chronic kidney disease; E11.42 Type 2 diabetes mellitus with diabetic polyneuropathy; E11.51 Type 2 diabetes mellitus with diabetic peripheral angiopathy without gangrene; I49.5 Sick sinus syndrome; G20 Parkinson's disease; I13.0 Hypertensive heart and chronic kidney disease with heart failure and stage 1 through stage 4 chronic kidney disease, or unspecified chronic kidney disease; N39.0 Urinary tract infection, site not specified; E86.1 Hypovolemia; D64.9 Anemia, unspecified; E83.42 Hypomagnesemia; I25.5 Ischemic cardiomyopathy; I25.10 Atherosclerotic heart disease of native coronary artery without angina pectoris; M81.0 Age-related osteoporosis without current pathological fracture; J44.9 Chronic obstructive pulmonary disease, unspecified; N18.3 Chronic kidney disease, stage 3 (moderate); E78.00 Pure hypercholesterolemia, unspecified; E78.5 Hyperlipidemia, unspecified; I27.20 Pulmonary hypertension, unspecified; I34.0 Nonrheumatic mitral (valve) insufficiency; Z82.49 Family history of ischemic heart disease and other diseases of the circulatory system; Z83.3 Family history of diabetes mellitus; Z89.421 Acquired absence of other right toe(s); Z95.0 Presence of cardiac pacemaker; I25.2 Old myocardial infarction; Z87.891 Personal history of nicotine dependence
CPT/HCPCS: 36415; 70450; 71045; 80048; 80053; 81001; 82553; 82947; 83540; 83550; 83605; 83690; 83735; 83880; 84484; 85025; 85027; 85610; 87040; 87086; 87641; 93005; 96374; J0696; J1650; J1815; 99285-25

== ENCOUNTER 2017-06-10 11:16 | Emergency (ER) | payer MEDICARE ==
[~2017-06-10] VITALS: Ht 312.4 cm; Wt 47.3 kg
[~2017-06-10 11:16] MED LIST changes: +ACET325T9 PO; +ALBU2.5V5 NEB; +BISA10SU2 RC; +FURO40TA4 PO; +HYDR-2762 PO; +INSU100I17 SQ
--- NOTE | 2017-06-10 12:02 | PHYS DOC ---
Past History Past Medical History: CAD, CHF, COPD, Diabetes, Hypertension, Other Past Surgical History: Pacemaker, Other Smoking: Non-smoker Alcohol Use: None Drug Use: None Adult General Chief Complaint Chief Complaint: ABNORMAL LABS HPI HPI 87-year-old male patient with multiple medical problems including coronary artery disease, CHF, diabetes, hypertension and dyslipidemia and frequent hospitalization and was discharged from hospital recently had blood test at longterm with hemoglobin of 7.1 and his primary care physician recommended to come to the hospital for transfusion. Patient denies hematemesis and melena and hematuria. According to EMR he had hemoglobin of 11.5 in April 2017 that gradually dropped to 7.6 in his previous recent admission. Review of Systems Review of Systems Constitutional: Denies fever or chills [] Eyes: Denies change in visual acuity, redness, or eye pain [] HENT: Denies nasal congestion or sore throat [] Respiratory: Denies cough or shortness of breath [] Cardiovascular: No additional information not addressed in HPI [] GI: Denies abdominal pain, nausea, vomiting, bloody stools or diarrhea [] : Denies dysuria or hematuria [] Musculoskeletal: Denies back pain or joint pain [] Integument: Denies rash or skin lesions [] Neurologic: Denies headache, focal weakness or sensory changes [] Endocrine: Denies polyuria or polydipsia [] All other systems were reviewed and found to be within normal limits, except as documented in this note. Allergies Allergies Allergies Coded Allergies Type Severity Reaction Last Updated Verified NKMA Allergy Unknown 05/04/17 Yes Physical Exam Physical Exam Constitutional: Frail patient, no acute distress, non-toxic appearance. [] HENT: Normocephalic, atraumatic,pale, nose normal. [] Eyes: PERRLA, EOMI, conjunctiva normal, no discharge. [] Neck: Normal range of motion, no tenderness, supple, no stridor. [] Cardiovascular:Heart rate regular rhythm, no murmur [] Lungs & Thorax: Bilateral breath sounds clear to auscultation [] Abdomen: Bowel sounds normal, soft, no tenderness, no masses, no pulsatile masses. [] Skin: Warm, dry, no erythema, no rash. [] Back: No tenderness, no CVA tenderness. [] Extremities: No tenderness, no cyanosis, no clubbing, ROM intact, no edema. [] Neurologic: Alert and oriented X 3, normal motor function, normal sensory function, no focal deficits noted. [] EKG EKG [] Radiology/Procedures Radiology/Procedures [] Course & Med Decision Making Course & Med Decision Making Pertinent Labs studies reviewed. (See chart for details) Evaluation of patient in ER showed 87-year-old male patient with history of chronic anemia sent from longterm because of hemoglobin of 7.1. Patient had hemoglobin of 7.8 that was the same as his previous hemoglobin. Dr Gay informed at 1252 and recommended to send patient to longterm. Dragon Disclaimer Dragon Disclaimer This electronic medical record was generated, in whole or in part, using a voice recognition dictation system. Departure Departure: Impression: Primary Impression: Chronic anemia Disposition: 01 HOME, SELF-CARE (charged longterm) Condition: STABLE Referrals: GENEVIEVE MORALSE MD (PCP) Patient Instructions: Anemia, FAQs Additional Instructions: Follow-up with your primary care physician in 2-3 days Return to ER if not getting better MEME AGUILAR MD Jun 10, 2017 12:02
[2017-06-10 12:18] LABS: BASO % 1 % (0-3); EOS # 0.2 x10^3/uL (0.0-0.7); EOS % 3 % (0-3); HEMATOCRIT 23.5 % (39.0-53.0); HEMOGLOBIN 7.8 g/dL (13.0-17.5); LYMPH # 1.7 x10^3/uL (1.0-4.8); LYMPH % 26 % (24-48); MEAN CORPUSCULAR HEMOGLOBIN 31 pg (25-35); MEAN CORPUSCULAR HGB CONC 33 g/dL (31-37); MEAN CORPUSCULAR VOLUME 94 fL (79-100); MONO # 0.9 x10^3/uL (0.0-1.1); MONO % 13 % (0-9); NEUT # 3.8 x10^3uL (1.8-7.7); NEUT % 58 % (31-73); PLATELET COUNT 130 x10^3/uL (140-400); RED BLOOD COUNT 2.51 x10^6/uL (4.30-5.70); RED CELL DISTRIBUTION WIDTH 17.1 % (11.5-14.5); WHITE BLOOD COUNT 6.6 x10^3/uL (4.0-11.0)
[2017-06-10 12:35] LABS: ALBUMIN 2.4 g/dL (3.4-5.0); ALBUMIN/GLOBULIN RATIO 0.6 (1.0-1.7); ALK PHOS 97 U/L (46-116); ANION GAP 4 (6-14); AST (SGOT) 16 U/L (15-37); BLOOD UREA NITROGEN 27 mg/dL (8-26); BUN/CREATININE RATIO 21 (6-20); CALCIUM 8.8 mg/dL (8.5-10.1); CARBON DIOXIDE 31 mmol/L (21-32); CHLORIDE 106 mmol/L (98-107); CREATININE 1.3 mg/dL (0.7-1.3); GLUCOSE 128 mg/dL (70-99); POTASSIUM 4.3 mmol/L (3.5-5.1); SODIUM 141 mmol/L (136-145); TOTAL BILIRUBIN 0.4 mg/dL (0.2-1.0); TOTAL PROTEIN 6.7 g/dL (6.4-8.2)
[2017-06-10 12:36] LABS: ALT (SGPT) < 6 U/L (16-63)
[2017-06-10 14:30] VITALS: BP 144/62
== END 2017-06-10 16:55 | disposition home or self-care (01) ==
LOC: ER 11:16
DX: D64.89 Other specified anemias (principal); E11.9 Type 2 diabetes mellitus without complications; E78.5 Hyperlipidemia, unspecified; I11.0 Hypertensive heart disease with heart failure; I25.10 Atherosclerotic heart disease of native coronary artery without angina pectoris; I50.9 Heart failure, unspecified; J44.9 Chronic obstructive pulmonary disease, unspecified; Z95.0 Presence of cardiac pacemaker
CPT/HCPCS: 36415; 80053; 83880; 85025; 99284

== ENCOUNTER 2017-06-14 19:26 | Inpatient (IN) | payer MEDICARE ==
[~2017-06-14] VITALS: Ht 160 cm; Wt 57.4 kg
[2017-06-14] MEDS ORDERED: IV NORMAL SALINE 1,000ML 1,000 ML IV SCH (19:47)
[2017-06-14] MEDS ORDERED: 0.9 % SODIUM CHLORIDE 10 ML DISP.SYRIN. IV PRN (20:00)
[2017-06-14 20:21] LABS: BASO % 0 % (0-3); EOS # 0.1 x10^3/uL (0.0-0.7); EOS % 2 % (0-3); HEMATOCRIT 20.1 % (39.0-53.0); LYMPH # 1.4 x10^3/uL (1.0-4.8); LYMPH % 25 % (24-48); MEAN CORPUSCULAR HEMOGLOBIN 31 pg (25-35); MEAN CORPUSCULAR HGB CONC 33 g/dL (31-37); MEAN CORPUSCULAR VOLUME 93 fL (79-100); MONO # 0.5 x10^3/uL (0.0-1.1); MONO % 9 % (0-9); NEUT # 3.5 x10^3uL (1.8-7.7); NEUT % 64 % (31-73); PLATELET COUNT 283 x10^3/uL (140-400); RED BLOOD COUNT 2.17 x10^6/uL (4.30-5.70); RED CELL DISTRIBUTION WIDTH 16.6 % (11.5-14.5); WHITE BLOOD COUNT 5.5 x10^3/uL (4.0-11.0)
[2017-06-14 20:32] LABS: HEMOGLOBIN 6.6 g/dL (13.0-17.5)
[2017-06-14 20:38] LABS: ALBUMIN 2.3 g/dL (3.4-5.0); ALK PHOS 110 U/L (46-116); ANION GAP 7 (6-14); AST (SGOT) 13 U/L (15-37); BLOOD UREA NITROGEN 30 mg/dL (8-26); CALCIUM 8.5 mg/dL (8.5-10.1); CARBON DIOXIDE 28 mmol/L (21-32); CHLORIDE 108 mmol/L (98-107); CREATININE 1.4 mg/dL (0.7-1.3); DIRECT BILIRUBIN 0.1 mg/dL (0.0-0.2); GFR 47.7; GLUCOSE 149 mg/dL (70-99); MAGNESIUM 1.9 mg/dL (1.8-2.4); POTASSIUM 4.2 mmol/L (3.5-5.1); SODIUM 143 mmol/L (136-145); TOTAL BILIRUBIN 0.3 mg/dL (0.2-1.0); TOTAL PROTEIN 6.4 g/dL (6.4-8.2)
[2017-06-14 20:39] LABS: ALT (SGPT) < 6 U/L (16-63)
--- NOTE | 2017-06-14 20:40 | EKG ---
[address] [address] Test Date: 2017-06-14 Test Time: 19:37:21 Pat Name: ABY PEREZ Department: Room: Gender: M Attic Blower: JAILYN : 1930 Requested By: BERE MANZO Order Number: [id number] Reading MD: Measurements Intervals [place] Rate: 65 P: MD: QRS: -11 QRSD: 162 T: 161 QT: 466 QTc: 485 Interpretive Statements IRREGULAR RHYTHM, NO P-WAVE FOUND LEFTWARD AXIS NON SPECIFIC INTRAVENTRICULAR BLOCK QRS(T) CONTOUR ABNORMALITY CONSISTENT WITH INFERIOR INFARCT PROBABLY OLD ABNORMAL ECG RI6.01 No previous ECG available for comparison
[2017-06-14] MEDS: IV NORMAL SALINE 1,000ML 1,000 ML IV SCH (20:51)
--- NOTE | 2017-06-14 20:51 | PHYS DOC ---
Past History Past Medical History: CAD, CHF, COPD, Diabetes, Hypertension, Other Past Surgical History: Pacemaker, Other Smoking: Non-smoker Alcohol Use: None Drug Use: None Adult General Chief Complaint Chief Complaint: ABNORMAL LABS HPI HPI Patient is a pleasant 87-year-old man a residential presents with questionable anemia all at the residential. Patient has had some intermittent dizziness for last week while he stands quickly is a known history of anemia chronic disease and presents with no complaints other than mild dizziness with change in posture. He denies any chest pain, abdominal pain he was dispositioned here because laboratory work drawn this morning at 6 AM 06/14/2017 demonstrate an H& H of 6.2 and 18.5. Given his prior history of heart disease patient will likely need transfusion if this blood work is still that low. Patient is sent change in medications he is complaining of mild swelling to his right and left hands left greater than right and lower extremity edema. Review of Systems Review of Systems Constitutional: Denies fever or chills [] Eyes: Denies change in visual acuity, redness, or eye pain [] HENT: Denies nasal congestion or sore throat [] Respiratory: Denies cough or shortness of breath [] Cardiovascular: No additional information not addressed in HPI [] GI: Denies abdominal pain, nausea, vomiting, bloody stools or diarrhea [] : Denies dysuria or hematuria [] Musculoskeletal: Denies back pain or joint pain [] Integument: Denies rash or skin lesions [] Neurologic: Denies headache, focal weakness or sensory changes his only complaint is generalized weakness and mild dizziness with postural changes[] Endocrine: Denies polyuria or polydipsia [] All other systems were reviewed and found to be within normal limits, except as documented in this note. Current Medications Current Medications Current Medications Medications (Trade) Dose Ordered Sig/Aidan Start Time Stop Time Status Last Admin Dose Admin Sodium Chloride (Normal Saline Flush) 10 ml QSHIFT PRN 06/14/17 20:00 Allergies Allergies Allergies Coded Allergies Type Severity Reaction Last Updated Verified NKMA Allergy Unknown 05/04/17 Yes Physical Exam Physical Exam Of the vital signs on the chart at this time within normal limits Constitutional: Well developed, well nourished, no acute distress, non-toxic appearance. [] HENT: Normocephalic, atraumatic, bilateral external ears normal, oropharynx mildly dry no oral exudates, nose normal. [] Eyes: PERRLA, EOMI, conjunctiva normal, no discharge. [] Neck: Normal range of motion, no tenderness, supple, no stridor. [] Cardiovascular:Heart rate regular rhythm, slight 2/6 systolic ejection murmur[] Lungs & Thorax: Bilateral breath sounds clear to auscultation [] Abdomen: Bowel sounds normal, soft, no tenderness, no masses, no pulsatile masses. [] Skin: Warm, dry, no erythema, no rash. [] Back: No tenderness, no CVA tenderness. [] Extremities: No tenderness, no cyanosis, no clubbing, ROM intact,he does have edema of her lower legs with +1 pitting edema and to the left hand with no warmth no changes in color.] Neurologic: Alert and oriented X 3, normal motor function, normal sensory function, no focal deficits noted. [] Psychologic: Affect normal, judgement normal, mood normal. [] Current Patient Data Lab Results Laboratory Tests Test 06/14/17 20:00 White Blood Count 5.5 x10^3/uL (4.0-11.0) Red Blood Count 2.17 x10^6/uL (4.30-5.70) L Hemoglobin 6.6 g/dL (13.0-17.5) *L Hematocrit 20.1 % (39.0-53.0) L Mean Corpuscular Volume 93 fL (79-100) Mean Corpuscular Hemoglobin 31 pg (25-35) Mean Corpuscular Hemoglobin Concent 33 g/dL (31-37) Red Cell Distribution Width 16.6 % (11.5-14.5) H Platelet Count 283 x10^3/uL (140-400) # Neutrophils (%) (Auto) 64 % (31-73) Lymphocytes (%) (Auto) 25 % (24-48) Monocytes (%) (Auto) 9 % (0-9) Eosinophils (%) (Auto) 2 % (0-3) Basophils (%) (Auto) 0 % (0-3) Neutrophils # (Auto) 3.5 x10^3uL (1.8-7.7) Lymphocytes # (Auto) 1.4 x10^3/uL (1.0-4.8) Monocytes # (Auto) 0.5 x10^3/uL (0.0-1.1) Eosinophils # (Auto) 0.1 x10^3/uL (0.0-0.7) Basophils # (Auto) 0.0 x10^3/uL (0.0-0.2) Sodium Level 143 mmol/L (136-145) Potassium Level 4.2 mmol/L (3.5-5.1) Chloride Level 108 mmol/L (98-107) H Carbon Dioxide Level 28 mmol/L (21-32) Anion Gap 7 (6-14) Blood Urea Nitrogen 30 mg/dL (8-26) H Creatinine 1.4 mg/dL (0.7-1.3) H Estimated GFR (Cockcroft-Gault) 47.7 Glucose Level 149 mg/dL (70-99) H Calcium Level 8.5 mg/dL (8.5-10.1) Magnesium Level 1.9 mg/dL (1.8-2.4) Total Bilirubin 0.3 mg/dL (0.2-1.0) Direct Bilirubin 0.1 mg/dL (0.0-0.2) Aspartate Amino Transferase (AST) 13 U/L (15-37) L Alanine Aminotransferase (ALT) < 6 U/L (16-63) L Alkaline Phosphatase 110 U/L (46-116) Troponin I Quantitative < 0.017 ng/mL (0-0.055) MO-Nug-T-Type Natriuretic Peptide 10452 pg/mL (0-449) H Total Protein 6.4 g/dL (6.4-8.2) Albumin 2.3 g/dL (3.4-5.0) L EKG EKG [] Radiology/Procedures Radiology/Procedures [] Course & Med Decision Making Course & Med Decision Making Pertinent Labs and Imaging studies reviewed. (See chart for details) []Patient presents with dizziness and anemia from the residential. He has no other complaints or change in medications no appetite. Been resting quietly and comfortably patient on the CBC repeated this time to ensure this is back anemia that required treatment. Impression CBC returns with an H&H of 6.6 and 20 which will require transfusion given his cardiac history his troponin and proBNP are negative, Patient's EKG read by me 7:37 PM 0 to 06/14/2017 demonstrates a irregular irregular and chronic age or fibrillation there is no discernible P-wave service with is 162 there is a significant left bundle mass block and old inferior OR with Q waves. This is an abnormal EKG [employer]ar Shop Supervisor note: Dr. Gama Briar [employer] Supervisor called at of the service patient initially at 8:40 PM Consult called back at phone call return at 8:41 PM Discussed the case I presented and they agreed with admission. Time of acceptance 8:41 PM "I have assessed this patient clinically and believe that their condition requires an admission to the hospital. After consulting the admitting physician about this case, they have asked that I admit this patient to their service as an inpatient based on the clinical presentation and my impression." Impression: Anemia chronic illness dizziness secondary to anemia Dragon Disclaimer Dragon Disclaimer This electronic medical record was generated, in whole or in part, using a voice recognition dictation system. Departure Departure: Impression: Primary Impression: Anemia Additional Impression: Dizziness Disposition: ADMITTED INPATIENT Admitting Physician: Pramod Cruz Condition: GUARDED Referrals: PRAMOD CURZ MD (PCP) Problem Qualifiers BERE MANZO MD Jun 14, 2017 20:51
[2017-06-14] MEDS ORDERED: ONDANSETRON PF 4 MG/2 ML VIAL. IV PRN (21:00)
[2017-06-14] MEDS ORDERED: ACETAMINOPHEN 325 MG TABLET PO STA (21:12)
[2017-06-14] MEDS ORDERED: diphenhydrAMINE ORAL ELIXIR 12.5 MG/5 ML ML PO ONE (21:30)
[2017-06-14] MEDS ORDERED: MAGN64TA6 PO (22:59)
[2017-06-14] MEDS ORDERED: PANT40TA5 PO (22:59)
[2017-06-14 23:16] VITALS: BP 134/62
[2017-06-14 23:42] VITALS: BP 139/63
[2017-06-14 23:59] VITALS: BP 139/72
[2017-06-15] VITALS (9 sets, daily range): BP systolic 130–173; BP diastolic 61–74
[2017-06-15] MEDS ORDERED: PNEUMOCOCCAL VAX SCREEN. MC ONE
[2017-06-15 06:38] LABS: HEMOGLOBIN 8.1 g/dL (13.0-17.5); RED BLOOD COUNT 2.58 x10^6/uL (4.30-5.70); RED CELL DISTRIBUTION WIDTH 15.6 % (11.5-14.5); WHITE BLOOD COUNT 5.2 x10^3/uL (4.0-11.0)
[2017-06-15 07:01] LABS: ALBUMIN/GLOBULIN RATIO 0.5 (1.0-1.7); ALK PHOS 93 U/L (46-116); ANION GAP 6 (6-14); AST (SGOT) 12 U/L (15-37); BLOOD UREA NITROGEN 30 mg/dL (8-26); BUN/CREATININE RATIO 21 (6-20); CALCIUM 8.1 mg/dL (8.5-10.1); CARBON DIOXIDE 28 mmol/L (21-32); CHLORIDE 109 mmol/L (98-107); CREATININE 1.4 mg/dL (0.7-1.3); GFR 47.7; GLUCOSE 104 mg/dL (70-99); POTASSIUM 3.6 mmol/L (3.5-5.1); SODIUM 143 mmol/L (136-145); TOTAL BILIRUBIN 0.3 mg/dL (0.2-1.0); TOTAL PROTEIN 5.7 g/dL (6.4-8.2)
[2017-06-15 07:02] LABS: ALT (SGPT) < 6 U/L (16-63)
--- NOTE | 2017-06-15 08:44 | RAD ---
Portable chest, 06/14/2017: History: Anemia, weakness Comparison is made to a study from 06/05/2017. A left-sided transvenous pacemaker remains in place with 2 leads extending into the right heart. The heart is enlarged. 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 There are areas of pleural thickening inferolaterally on the left and over the left apex which are unchanged since 06/05/2017. The findings suggest multiloculated pleural fluid. There is mild underlying left basilar atelectasis/infiltrate. There is unchanged blunting of the right lateral costophrenic angle compatible with a small amount of pleural fluid or scarring. There is mild underlying right basilar atelectasis/infiltrate. No new pulmonary opacities are seen. IMPRESSION: Ongoing bilateral pleural-parenchymal opacities, left greater than right as described above, unchanged since 06/05/2017.
[2017-06-15] MEDS ORDERED: PNEUMOC CONJ VACC 23-VALENT 0.5 ML VIAL. VAX IM ONE (09:00)
[2017-06-15] MEDS ORDERED: BISACODYL 10 MG SUPP.RECT RC PRN (09:45)
[2017-06-15] MEDS ORDERED: ACETAMINOPHEN 325 MG TABLET PO PRN (09:45)
[2017-06-15] MEDS ORDERED: INSULIN ASPART 300 UNITS/3 ML INSULN.PEN SQ PRN (09:45)
[2017-06-15] MEDS: IV NORMAL SALINE 1,000ML 1,000 ML IV SCH (10:11)
[2017-06-15] MEDS: PANTOPRAZOLE 40 MG TABLET. PO SCH (10:36)
[2017-06-15] MEDS: SACUBITRIL/VALSARTAN 24/26MG TABLET. PO SCH ×2 (10:36→20:37)
[2017-06-15] MEDS: LACTOBACILLUS RHAMNOSUS GG 1 CAPSULE. PO SCH ×2 (10:37→20:37)
[2017-06-15] MEDS: MAGNESIUM CHLORIDE ER 64 MG TABLET.ER PO SCH (10:37)
[2017-06-15] MEDS: SUCRALFATE 1 GM TABLET. PO SCH ×3 (11:35→20:37)
[2017-06-15] MEDS: CARBIDOPA/LEVODOPA 25/100MG TABLET PO SCH ×3 (13:03→20:37)
--- NOTE | 2017-06-15 18:39 | HP ---
ADMIT DATE: 06/14/2017 HISTORY OF PRESENT ILLNESS: The patient came in through the Emergency Room, he was at the retirement and came in with lightheadedness, dizziness. The patient was noted that he had a significant drop in his hemoglobin down to 6.2. As a result of that, he was admitted to the hospital for further evaluation and transfusion. The patient has not been admitted for this in the past and this was something new. ALLERGIES: No known allergies. 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 IMMUNIZATIONS: Influenza pneumococcal are up-to-date. FAMILY HISTORY: Positive for diabetes. MEDICATIONS: Tylenol, albuterol sulfate, aspirin, calcium carbonate, carbidopa-levodopa, Sinemet 25/100, lactobacillus, magnesium, Protonix 40 and Entresto 24/26 one b.i.d., Zocor 20. SOCIAL HISTORY: The patient denies smoking, alcohol or drug use. Lives at a retirement for now. REVIEW OF SYSTEMS: The patient denies outside of his lightheadedness, denies headaches, vision changes, blurred vision, double vision. Denies any melena, hematochezia, or hematemesis and neurologically the patient is at baseline, stable. PHYSICAL EXAMINATION: GENERAL: This is a pleasant male, in no apparent distress. VITAL SIGNS: Blood pressure 134/65, respiratory rate 20, pulse 64, afebrile. HEENT: The patient's head was atraumatic, normocephalic. Eyes: PERRLA without jaundice. Mouth and throat were normal except for poor dentition. NECK: Supple, without JVD, carotid bruits or thyromegaly. LUNGS: Diminished. Poor movement of air, primarily in the bases. CARDIOVASCULAR: Regular rhythm. ABDOMEN: Soft, nontender, no rebound or guarding. Positive bowel sounds. EXTREMITIES: No clubbing or cyanosis. Multiple toes missing of the right lower foot, where he has had osteo and amputations. NEUROLOGIC: The patient, otherwise is neurologically alert and oriented and able to speak. LABORATORY DATA: Showed hemoglobin 6.6 and 20, protein low at 2. Creatinine decreased to 1.4, but stable. IMPRESSION AND PLAN: The patient otherwise will continue to be monitored carefully, make further evaluation for possible gastrointestinal bleed. He is held off on his baby aspirin, placed on Carafate along with Protonix. We will repeat his hemoglobin and hematocrit here in few minutes. GENEVIEVE MORALES MD DR: IVON/my JOB#: [id number] / [id number]
[2017-06-15 18:45] LABS: HEMATOCRIT 25.8 % (39.0-53.0); HEMOGLOBIN 8.7 g/dL (13.0-17.5)
[2017-06-15] MEDS ORDERED: SIMVASTATIN 20 MG TABLET PO SCH (21:00)
[2017-06-15] MEDS ORDERED: DEXTROSE 50% 25 GM / 50ML DISP.SYRIN. IV PRN (23:30)
[2017-06-16] MEDS: INSULIN ASPART 300 UNITS/3 ML INSULN.PEN SQ SCH ×2 (07:30→11:30)
[2017-06-16] MEDS: PANTOPRAZOLE 40 MG TABLET. PO SCH (07:44)
[2017-06-16] MEDS: SUCRALFATE 1 GM TABLET. PO SCH ×2 (07:44→11:46)
[2017-06-16] MEDS: CARBIDOPA/LEVODOPA 25/100MG TABLET PO SCH (09:44)
[2017-06-16] MEDS: SACUBITRIL/VALSARTAN 24/26MG TABLET. PO SCH (09:45)
[2017-06-16] MEDS: MAGNESIUM CHLORIDE ER 64 MG TABLET.ER PO SCH (09:45)
[2017-06-16] MEDS: LACTOBACILLUS RHAMNOSUS GG 1 CAPSULE. PO SCH (09:46)
[2017-06-16] MEDS ORDERED: DOCUSATE SODIUM 100 MG CAPSULE PO SCH (10:00)
[2017-06-16 10:27] LABS: FECAL OB PT NEGATIVE (NEG)
[2017-06-16 11:23] VITALS: BP 145/68
--- NOTE | 2017-06-16 12:07 | DS ---
DATE OF DISCHARGE: HOSPITAL COURSE: An 87-year-old male [facility], had extremely low hemoglobin unrelated to anything else, 6.6 and 20, given 2 units of packed RBCs, came back up into range of 8.7 and 25. The patient felt much better. Sugars were monitored. He was discharged home, follow up as an outpatient. IMPRESSION: Acute gastrointestinal bleed, did not want further workup; type 2 diabetes, mild -to-moderate protein malnutrition. Please see EMRAD. Decreased activity, return to the [facility] for rehab. GENEVIEVE MORALES MD DR: IVON/my JOB#: [id number] / [id number]
[2017-06-16 14:27] VITALS: BP 136/72
== END 2017-06-16 15:00 | disposition home or self-care (01) | DRG 378 ==
LOC: ER 19:26 → 1 SOUTH 20:57
PROVIDERS: ADMIT Family Medicine; ATTEND Family Medicine
PROC: 30233N1 Transfusion of Nonautologous Red Blood Cells into Peripheral Vein, Percutaneous Approach (ICD-10-PCS; principal; 2017-06-14)
DX: K92.2 Gastrointestinal hemorrhage, unspecified (principal); E44.0 Moderate protein-calorie malnutrition; E11.42 Type 2 diabetes mellitus with diabetic polyneuropathy; E11.51 Type 2 diabetes mellitus with diabetic peripheral angiopathy without gangrene; I42.9 Cardiomyopathy, unspecified; D63.8 Anemia in other chronic diseases classified elsewhere; E78.00 Pure hypercholesterolemia, unspecified; G20 Parkinson's disease; I11.0 Hypertensive heart disease with heart failure; Z53.20 Procedure and treatment not carried out because of patient's decision for unspecified reasons; I25.10 Atherosclerotic heart disease of native coronary artery without angina pectoris; I50.9 Heart failure, unspecified; J44.9 Chronic obstructive pulmonary disease, unspecified; M81.0 Age-related osteoporosis without current pathological fracture; Z79.01 Long term (current) use of anticoagulants; I25.2 Old myocardial infarction; Z83.3 Family history of diabetes mellitus; Z95.0 Presence of cardiac pacemaker; Z68.22 Body mass index [BMI] 22.0-22.9, adult; Z90.49 Acquired absence of other specified parts of digestive tract; Z89.421 Acquired absence of other right toe(s)
CPT/HCPCS: 36415; 71045; 80048; 80053; 80076; 82274; 82947; 83735; 83880; 84484; 85014; 85018; 85025; 85027; 86850; 86900; 86901; 86920; 87641; 90732; 93005; 96360; J1815; P9016; 97110; 97535; 99285-25; J7030

== ENCOUNTER 2017-08-05 16:29 | Inpatient (IN) | payer MEDICARE ==
[~2017-08-05] VITALS: Ht 160 cm; Wt 56.2 kg
[~2017-08-05 16:29] MED LIST changes: +MAGN64TA6 PO; +PANT40TA5 PO
[2017-08-05 17:00] VITALS: BP 98/46
[2017-08-05] MEDS: IV NORMAL SALINE 1,000ML 1,000 ML IV SCH (18:15)
[2017-08-05 19:00] VITALS: BP 102/52
[2017-08-05 19:52] LABS: BASO % 0 % (0-3); EOS % 0 % (0-3); HEMATOCRIT 34.9 % (39.0-53.0); HEMOGLOBIN 11.2 g/dL (13.0-17.5); LYMPH # 0.6 x10^3/uL (1.0-4.8); LYMPH % 6 % (24-48); MEAN CORPUSCULAR HEMOGLOBIN 29 pg (25-35); MEAN CORPUSCULAR HGB CONC 32 g/dL (31-37); MEAN CORPUSCULAR VOLUME 91 fL (79-100); MONO # 0.7 x10^3/uL (0.0-1.1); MONO % 7 % (0-9); NEUT # 9.2 x10^3uL (1.8-7.7); NEUT % 87 % (31-73); PLATELET COUNT 269 x10^3/uL (140-400); RED BLOOD COUNT 3.85 x10^6/uL (4.30-5.70); RED CELL DISTRIBUTION WIDTH 15.8 % (11.5-14.5); WHITE BLOOD COUNT 10.6 x10^3/uL (4.0-11.0)
[2017-08-05 19:59] LABS: CREATININE 1.7 mg/dL (0.7-1.3); GFR 38.1; POTASSIUM 4.5 mmol/L (3.5-5.1)
[2017-08-06] VITALS (7 sets, daily range): BP systolic 87–107; BP diastolic 37–52
[2017-08-06] MEDS ORDERED: BISACODYL 10 MG SUPP.RECT RC PRN (04:15)
[2017-08-06] MEDS ORDERED: INSULIN ASPART 300 UNITS/3 ML INSULN.PEN SQ PRN (04:15)
[2017-08-06] MEDS ORDERED: FURO-69 PO (04:25)
[2017-08-06] MEDS ORDERED: AMLO2.5T2 PO (04:25)
[2017-08-06] MEDS ORDERED: POTA20TA4 PO (04:25)
[2017-08-06] MEDS ORDERED: DEXTROSE 50% 25 GM / 50ML DISP.SYRIN. IV PRN (05:00)
[2017-08-06 06:05] LABS: BASO % 0 % (0-3); EOS % 0 % (0-3); HEMATOCRIT 32.3 % (39.0-53.0); HEMOGLOBIN 10.4 g/dL (13.0-17.5); LYMPH % 7 % (24-48); MEAN CORPUSCULAR HEMOGLOBIN 29 pg (25-35); MEAN CORPUSCULAR HGB CONC 32 g/dL (31-37); MEAN CORPUSCULAR VOLUME 90 fL (79-100); MONO # 0.9 x10^3/uL (0.0-1.1); MONO % 7 % (0-9); NEUT # 11.7 x10^3uL (1.8-7.7); NEUT % 86 % (31-73); PLATELET COUNT 232 x10^3/uL (140-400); RED BLOOD COUNT 3.61 x10^6/uL (4.30-5.70); RED CELL DISTRIBUTION WIDTH 15.8 % (11.5-14.5); WHITE BLOOD COUNT 13.6 x10^3/uL (4.0-11.0)
[2017-08-06] MEDS: IV NORMAL SALINE 1,000ML 1,000 ML IV SCH ×3 (06:11→21:24)
[2017-08-06 06:15] LABS: ALBUMIN 1.8 g/dL (3.4-5.0); ALBUMIN/GLOBULIN RATIO 0.5 (1.0-1.7); ALK PHOS 83 U/L (46-116); ANION GAP 7 (6-14); AST (SGOT) 9 U/L (15-37); BLOOD UREA NITROGEN 50 mg/dL (8-26); BUN/CREATININE RATIO 33 (6-20); CALCIUM 8.4 mg/dL (8.5-10.1); CARBON DIOXIDE 25 mmol/L (21-32); CHLORIDE 106 mmol/L (98-107); CREATININE 1.5 mg/dL (0.7-1.3); GFR 44.1; GLUCOSE 188 mg/dL (70-99); MAGNESIUM 2.1 mg/dL (1.8-2.4); POTASSIUM 4.2 mmol/L (3.5-5.1); SODIUM 138 mmol/L (136-145); TOTAL BILIRUBIN 0.4 mg/dL (0.2-1.0); TOTAL PROTEIN 5.8 g/dL (6.4-8.2)
[2017-08-06 06:22] LABS: ALT (SGPT) < 6 U/L (16-63)
--- NOTE | 2017-08-06 07:58 | RAD ---
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 The heart is generally enlarged. There is calcific plaquing of the aorta. There is a moderate volume of left-sided pleural fluid and a small amount of right-sided pleural fluid. There is underlying streaky bibasilar atelectasis/infiltrate. Similar findings were present on the previous study. There is no evidence of pneumothorax. 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 There may also be a component of scarring contributing to the basilar pleural-parenchymal opacities. IMPRESSION: Unchanged basilar pleural-parenchymal opacities, left greater than right, probably due to a combination of pleural fluid, chronic atelectasis/infiltrate and scarring. Electronically signed by: Len Gracia MD (08/06/2017 7:55 AM) [facility]
--- NOTE | 2017-08-06 08:00 | RAD ---
Pelvis, 2 views, 08/05/2017: HISTORY: Fall No fracture or dislocation is identified. There are minimal degenerative changes at the hip joints. Moderate degenerative change is present in the lower lumbar spine. Extensive arterial calcifications are present. IMPRESSION: No acute bony abnormality is detected. Electronically signed by: Len Gracia MD (08/06/2017 7:57 AM) [facility]
--- NOTE | 2017-08-06 08:02 | RAD ---
Facial bones, 3 views, 08/05/2017: HISTORY: Fall, injury No fracture is identified. The visualized paranasal sinuses are clear. Degenerative change is present in the cervical spine. IMPRESSION: No acute facial bone abnormality is detected. Electronically signed by: Len Gracia MD (08/06/2017 7:59 AM) [facility]
[2017-08-06] MEDS: POTASSIUM CHLORIDE 20 MEQ TABLET.ER. PO SCH ×2 (09:00→21:24)
[2017-08-06] MEDS: SACUBITRIL/VALSARTAN 24/26MG TABLET. PO SCH ×2 (09:00→21:00)
[2017-08-06] MEDS: amLODIPine BESYLATE 2.5 MG TABLET PO SCH (09:00)
[2017-08-06] MEDS: MAGNESIUM CHLORIDE ER 64 MG TABLET.ER PO SCH (09:07)
[2017-08-06] MEDS: FUROSEMIDE 20 MG TABLET PO SCH (09:08)
[2017-08-06] MEDS: CARBIDOPA/LEVODOPA 25/100MG TABLET PO SCH ×4 (09:08→21:24)
[2017-08-06] MEDS: PANTOPRAZOLE 40 MG TABLET. PO SCH (09:08)
[2017-08-06] MEDS: ASPIRIN 81 MG TAB.CHEW PO SCH (09:09)
[2017-08-06] MEDS: CALCIUM CARB/VIT D3 500/200 TABLET PO SCH ×2 (09:09→17:00)
[2017-08-06] MEDS: LACTOBACILLUS RHAMNOSUS GG 1 CAPSULE. PO SCH ×2 (09:19→21:24)
[2017-08-06] MEDS: cefTRIAXone IV Push 1 GM VIAL. IVP SCH (09:19)
[2017-08-06] MEDS: INSULIN LISPRO 300 UNITS/3 ML INSULN.PEN. SQ SCH ×3 (09:22→17:31)
[2017-08-06] MEDS: MUPIROCIN 2% TOPICAL OINTMENT 22GM TUBE. TP SCH ×2 (09:30→21:00)
[2017-08-06 11:50] LABS: BACTERIA,URINE FEW /HPF (0-FEW); BILIRUBIN,URINE NEG (NEG); CLARITY,URINE CLOUDY; COLOR,URINE AMBER; GLUCOSE,URINE NEG (NEG); NITRITE,URINE NEG (NEG); RBC,URINE RARE /HPF (0-2); SQUAMOUS EPITHELIAL CELL,UR OCC /LPF; UROBILINOGEN,URINE 0.2 mg/dL (0.2 mg/dL); WBC,URINE >40 /HPF (0-4); YEAST,URINE PRESENT /HPF
[2017-08-06] MEDS ORDERED: SIMVASTATIN 20 MG TABLET PO SCH (21:00)
[2017-08-06] MEDS: ATORVASTATIN CALCIUM 20 MG TABLET PO SCH (21:24)
[2017-08-06] MEDS: ACETAMINOPHEN 325 MG TABLET PO PRN (21:30)
--- NOTE | 2017-08-07 00:10 | PN ---
DATE: 08/06/2017 SUBJECTIVE: An 87-year-old male with a history of falling at home. The patient may have a pneumonic process according to his x-rays. His white count has shot up to almost 14,000. PHYSICAL EXAMINATION: VITAL SIGNS: His blood pressure is on the low side of 107/51, respiratory rate 16, pulse 70. Otherwise, his facial bones have been negative. GENERAL: The patient is alert, a little bit more oriented than he has been; I started him on antibiotics for his pneumonia. LUNGS: Diminished primarily. EXTREMITIES: In the lower extremities, he has some swelling to the extremities. NEUROLOGIC: Otherwise, neurologically, he is baseline there. ABDOMEN: Soft and nontender. CARDIOVASCULAR: Regular sinus rhythm. IMPRESSION: Multiple falls, head contusions, and possible concussion. Pneumonia of unspecified etiology, community acquired; generalized weakness, debilitation, severe protein malnutrition, chronic kidney disease, stage 3; and type 2 diabetes. GENEVIEVE MORALES MD DR: IVON/my JOB#: [id number] / [id number]
[2017-08-07 05:37] VITALS: BP 96/51
[2017-08-07] MEDS: INSULIN LISPRO 300 UNITS/3 ML INSULN.PEN. SQ SCH ×3 (08:00→17:00)
[2017-08-07] MEDS: PANTOPRAZOLE 40 MG TABLET. PO SCH (08:44)
[2017-08-07] MEDS: LACTOBACILLUS RHAMNOSUS GG 1 CAPSULE. PO SCH ×2 (08:44→20:17)
[2017-08-07] MEDS: CALCIUM CARB/VIT D3 500/200 TABLET PO SCH ×2 (08:44→17:00)
[2017-08-07] MEDS: CARBIDOPA/LEVODOPA 25/100MG TABLET PO SCH ×4 (08:44→20:17)
[2017-08-07] MEDS: MAGNESIUM CHLORIDE ER 64 MG TABLET.ER PO SCH (08:45)
[2017-08-07] MEDS: FUROSEMIDE 20 MG TABLET PO SCH (08:45)
[2017-08-07] MEDS: SACUBITRIL/VALSARTAN 24/26MG TABLET. PO SCH ×2 (08:54→20:17)
[2017-08-07] MEDS: POTASSIUM CHLORIDE 20 MEQ TABLET.ER. PO SCH ×2 (08:55→20:17)
[2017-08-07] MEDS: amLODIPine BESYLATE 2.5 MG TABLET PO SCH (08:55)
[2017-08-07] MEDS: MUPIROCIN 2% TOPICAL OINTMENT 22GM TUBE. TP SCH ×2 (08:57→20:18)
[2017-08-07] MEDS: cefTRIAXone IV Push 1 GM VIAL. IVP SCH (08:57)
[2017-08-07] MEDS: oxyCODONE/APAP 5/325 1 TAB TABLET PO PRN (09:26)
[2017-08-07 09:39] LABS: BASO % 0 % (0-3); EOS # 0.1 x10^3/uL (0.0-0.7); EOS % 1 % (0-3); HEMATOCRIT 36.8 % (39.0-53.0); HEMOGLOBIN 11.7 g/dL (13.0-17.5); LYMPH % 9 % (24-48); MEAN CORPUSCULAR HEMOGLOBIN 29 pg (25-35); MEAN CORPUSCULAR HGB CONC 32 g/dL (31-37); MEAN CORPUSCULAR VOLUME 90 fL (79-100); MONO # 0.8 x10^3/uL (0.0-1.1); MONO % 7 % (0-9); NEUT # 10.1 x10^3uL (1.8-7.7); NEUT % 84 % (31-73); PLATELET COUNT 255 x10^3/uL (140-400); RED CELL DISTRIBUTION WIDTH 15.9 % (11.5-14.5)
[2017-08-07] MEDS: IV NORMAL SALINE 1,000ML 1,000 ML IV SCH ×2 (10:15→20:15)
[2017-08-07 10:28] LABS: ALBUMIN 1.8 g/dL (3.4-5.0); ALBUMIN/GLOBULIN RATIO 0.4 (1.0-1.7); ALK PHOS 92 U/L (46-116); ANION GAP 9 (6-14); AST (SGOT) 19 U/L (15-37); BLOOD UREA NITROGEN 50 mg/dL (8-26); BUN/CREATININE RATIO 36 (6-20); CALCIUM 8.3 mg/dL (8.5-10.1); CARBON DIOXIDE 23 mmol/L (21-32); CHLORIDE 107 mmol/L (98-107); CREATININE 1.4 mg/dL (0.7-1.3); GFR 47.7; GLUCOSE 114 mg/dL (70-99); MAGNESIUM 2.1 mg/dL (1.8-2.4); POTASSIUM 4.4 mmol/L (3.5-5.1); SODIUM 139 mmol/L (136-145); TOTAL BILIRUBIN 0.4 mg/dL (0.2-1.0); TOTAL PROTEIN 6.3 g/dL (6.4-8.2)
[2017-08-07 10:31] LABS: ALT (SGPT) < 6 U/L (16-63)
[2017-08-07 11:53] VITALS: BP 107/64
[2017-08-07 15:24] VITALS: BP 98/58
[2017-08-07 19:55] VITALS: BP 113/51
[2017-08-07] MEDS: ATORVASTATIN CALCIUM 20 MG TABLET PO SCH (20:17)
[2017-08-07 22:53] VITALS: BP 95/60
[2017-08-08] MEDS: ACETAMINOPHEN 325 MG TABLET PO PRN (02:16)
[2017-08-08] MEDS: oxyCODONE/APAP 5/325 1 TAB TABLET PO PRN ×2 (05:14→11:38)
[2017-08-08 05:41] VITALS: BP 101/51
[2017-08-08] MEDS: IV NORMAL SALINE 1,000ML 1,000 ML IV SCH (06:15)
[2017-08-08 06:26] LABS: BASO % 0 % (0-3); EOS % 0 % (0-3); HEMATOCRIT 33.6 % (39.0-53.0); LYMPH # 0.6 x10^3/uL (1.0-4.8); LYMPH % 6 % (24-48); MEAN CORPUSCULAR HEMOGLOBIN 29 pg (25-35); MEAN CORPUSCULAR HGB CONC 33 g/dL (31-37); MEAN CORPUSCULAR VOLUME 90 fL (79-100); MONO # 0.6 x10^3/uL (0.0-1.1); MONO % 6 % (0-9); NEUT # 8.5 x10^3uL (1.8-7.7); NEUT % 87 % (31-73); PLATELET COUNT 237 x10^3/uL (140-400); RED BLOOD COUNT 3.74 x10^6/uL (4.30-5.70); RED CELL DISTRIBUTION WIDTH 16.2 % (11.5-14.5); WHITE BLOOD COUNT 9.8 x10^3/uL (4.0-11.0)
[2017-08-08 06:37] LABS: ALBUMIN 1.7 g/dL (3.4-5.0); ALBUMIN/GLOBULIN RATIO 0.4 (1.0-1.7); ALK PHOS 88 U/L (46-116); ANION GAP 5 (6-14); AST (SGOT) 13 U/L (15-37); BLOOD UREA NITROGEN 51 mg/dL (8-26); BUN/CREATININE RATIO 36 (6-20); CALCIUM 8.3 mg/dL (8.5-10.1); CARBON DIOXIDE 25 mmol/L (21-32); CHLORIDE 107 mmol/L (98-107); CREATININE 1.4 mg/dL (0.7-1.3); GFR 47.7; GLUCOSE 121 mg/dL (70-99); POTASSIUM 4.6 mmol/L (3.5-5.1); SODIUM 137 mmol/L (136-145); TOTAL BILIRUBIN 0.3 mg/dL (0.2-1.0); TOTAL PROTEIN 5.8 g/dL (6.4-8.2)
[2017-08-08 06:38] LABS: ALT (SGPT) < 6 U/L (16-63)
[2017-08-08] MEDS: INSULIN LISPRO 300 UNITS/3 ML INSULN.PEN. SQ SCH ×3 (08:00→16:49)
[2017-08-08] MEDS: POTASSIUM CHLORIDE 20 MEQ TABLET.ER. PO SCH ×2 (09:00→21:53)
[2017-08-08] MEDS: MUPIROCIN 2% TOPICAL OINTMENT 22GM TUBE. TP SCH ×2 (09:00→22:07)
[2017-08-08] MEDS: SACUBITRIL/VALSARTAN 24/26MG TABLET. PO SCH ×2 (09:00→21:54)
--- NOTE | 2017-08-08 10:12 | PN ---
DATE: SUBJECTIVE: The patient was with multiple falls, making fairly good progress overall, has been receiving IV antibiotic therapy for a pneumonic process. His white count remained basically stable at 12,000, hemoglobin up a little bit. The patient's sugars are being monitored as he is a diabetic. The patient also has chronic renal failure of course. The patient has severe protein malnutrition and hypothyroidism. PHYSICAL EXAMINATION: VITAL SIGNS: The patient's vital signs include that of a blood pressure of 96/51, respiratory rate 16, pulse 70 (NC). We will continue to monitor that blood pressure and we have cut down his amlodipine, we will go ahead and discontinue that since the patient is having trouble with low blood pressure. LUNGS: Diminished. CARDIOVASCULAR: Regular sinus rhythm. 05/11 systolic ____. ABDOMEN: Soft, nontender. We will go ahead and adjust his medications and get him off some of these blood pressure medications and make further evaluation on him as indicated. Otherwise, orthostatic hypotension, multiple falls, bruising, severe protein malnutrition, type 2 diabetes. Pneumonia of unspecified etiology. GENEVIEVE MORALES MD DR: IVON/my JOB#: [id number] / [id number]
[2017-08-08] MEDS: PANTOPRAZOLE 40 MG TABLET. PO SCH (10:32)
[2017-08-08] MEDS: LACTOBACILLUS RHAMNOSUS GG 1 CAPSULE. PO SCH ×2 (10:32→21:53)
[2017-08-08] MEDS: CARBIDOPA/LEVODOPA 25/100MG TABLET PO SCH ×4 (10:32→21:54)
[2017-08-08] MEDS: CALCIUM CARB/VIT D3 500/200 TABLET PO SCH ×2 (10:32→16:52)
[2017-08-08] MEDS: ASPIRIN 81 MG TAB.CHEW PO SCH (10:32)
[2017-08-08] MEDS: MAGNESIUM CHLORIDE ER 64 MG TABLET.ER PO SCH (10:32)
[2017-08-08] MEDS: cefTRIAXone IV Push 1 GM VIAL. IVP SCH (10:32)
[2017-08-08 11:04] VITALS: BP 93/57
--- NOTE | 2017-08-08 13:37 | RAD ---
History: Lower back pain. Comparison: None. Findings: AP and lateral views of lumbar spine, 3 images. 5 lumbar type vertebral bodies are present. 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 No acute fracture or acute malalignment is identified. Moderate-severe degenerative disc disease is seen, worst at L3-4 and L5-S1 where there is significant narrowing of the disc space and vacuum disc phenomenon as well as marginal disc osteophyte formation. Lesser degenerative disc disease is seen at other levels. Multilevel facet degeneration is seen. Arterial calcifications are present. Multiple surgical clips are seen in the abdomen. Impression: Moderate-severe multilevel degeneration. Electronically signed by: Shukri Jurado MD (08/08/2017 1:34 PM) [facility]
[2017-08-08 14:44] VITALS: BP 90/52
[2017-08-08 19:29] VITALS: BP 81/46
[2017-08-08] MEDS: CEFPODOXIME PROXETIL 100 MG TABLET PO SCH (21:53)
[2017-08-08] MEDS: ATORVASTATIN CALCIUM 20 MG TABLET PO SCH (21:54)
[2017-08-09 05:03] VITALS: BP 86/49
[2017-08-09] MEDS: INSULIN LISPRO 300 UNITS/3 ML INSULN.PEN. SQ SCH ×2 (07:43→12:00)
--- NOTE | 2017-08-09 08:17 | PN ---
DATE: 08/08/2017 SUBJECTIVE: He is resting fairly comfortably. He is still in pain although in his back, still having problems there. The patient otherwise seems to be very weak, debilitated, probably needs to go to skilled if possible for further rehabilitation. OBJECTIVE: VITAL SIGNS: Otherwise, his vital signs remain basically stable. Blood pressure approximately 100/51, respiratory rate 16, pulse 70, afebrile. LUNGS: Diminished throughout. CARDIOVASCULAR: Regular sinus rhythm. ABDOMEN: Soft. EXTREMITIES: Marked tenderness in the lower back. He may have also had a pneumonic process and that is why we are treating that. IMPRESSION: Therefore of orthostatic hypotension, multiple falls, bruising, severe protein malnutrition, type 2 diabetes, pneumonia of unspecified etiology. GENEVIEVE MORALES MD DR: IVON/my JOB#: [id number] / [id number]
[2017-08-09] MEDS ORDERED: VANCOMYCIN PER PHARMACY MC PRN (08:45)
[2017-08-09 08:53] VITALS: BP 93/61
[2017-08-09] MEDS: CEFPODOXIME PROXETIL 100 MG TABLET PO SCH (08:54)
[2017-08-09] MEDS: LACTOBACILLUS RHAMNOSUS GG 1 CAPSULE. PO SCH (08:54)
[2017-08-09] MEDS: CALCIUM CARB/VIT D3 500/200 TABLET PO SCH (08:55)
[2017-08-09] MEDS: POTASSIUM CHLORIDE 20 MEQ TABLET.ER. PO SCH (08:55)
[2017-08-09] MEDS: MAGNESIUM CHLORIDE ER 64 MG TABLET.ER PO SCH (08:55)
[2017-08-09] MEDS: CARBIDOPA/LEVODOPA 25/100MG TABLET PO SCH (08:55)
[2017-08-09] MEDS: PANTOPRAZOLE 40 MG TABLET. PO SCH (08:55)
[2017-08-09 09:00] VITALS: BP 93/61
[2017-08-09] MEDS ORDERED: FUROSEMIDE 20 MG TABLET PO SCH (09:00)
[2017-08-09] MEDS: SACUBITRIL/VALSARTAN 24/26MG TABLET. PO SCH (09:00)
[2017-08-09] MEDS: MUPIROCIN 2% TOPICAL OINTMENT 22GM TUBE. TP SCH (09:04)
[2017-08-09] MEDS ORDERED: MUPI22OI2 TP (11:59)
[2017-08-09] MEDS ORDERED: LACT1CAP19 PO (11:59)
[2017-08-09] MEDS ORDERED: OXYC1TAB7 PO (11:59)
[2017-08-09] MEDS ORDERED: VANC1PLA9 IV (11:59)
[2017-08-09] MEDS ORDERED: INSU100I11 SQ (11:59)
== END 2017-08-09 13:40 | DRG 193 ==
LOC: ICU 16:29 → 1 SOUTH 08-07 07:05
PROVIDERS: ADMIT Family Medicine; ATTEND Family Medicine
DX: J18.9 Pneumonia, unspecified organism (principal); E43 Unspecified severe protein-calorie malnutrition; E11.22 Type 2 diabetes mellitus with diabetic chronic kidney disease; E11.40 Type 2 diabetes mellitus with diabetic neuropathy, unspecified; E11.51 Type 2 diabetes mellitus with diabetic peripheral angiopathy without gangrene; G20 Parkinson's disease; I13.0 Hypertensive heart and chronic kidney disease with heart failure and stage 1 through stage 4 chronic kidney disease, or unspecified chronic kidney disease; I50.9 Heart failure, unspecified; N18.3 Chronic kidney disease, stage 3 (moderate); R29.6 Repeated falls; E03.9 Hypothyroidism, unspecified; E78.5 Hyperlipidemia, unspecified; I25.10 Atherosclerotic heart disease of native coronary artery without angina pectoris; S40.022A Contusion of left upper arm, initial encounter; S40.021A Contusion of right upper arm, initial encounter; S80.02XA Contusion of left knee, initial encounter; S80.01XA Contusion of right knee, initial encounter; S00.83XA Contusion of other part of head, initial encounter; J44.9 Chronic obstructive pulmonary disease, unspecified; M81.0 Age-related osteoporosis without current pathological fracture; E78.00 Pure hypercholesterolemia, unspecified; R55 Syncope and collapse; I95.1 Orthostatic hypotension; W19.XXXA Unspecified fall, initial encounter; Y93.89 Activity, other specified; Y92.009 Unspecified place in unspecified non-institutional (private) residence as the place of occurrence of the external cause; Y99.8 Other external cause status; Z68.22 Body mass index [BMI] 22.0-22.9, adult; Z83.3 Family history of diabetes mellitus; Z82.49 Family history of ischemic heart disease and other diseases of the circulatory system
CPT/HCPCS: 36415; 70140; 71046; 72100; 72170; 80048; 80053; 81001; 82947; 83735; 84443; 85025; 87086; 87324; 87641; 97163; J0696; J1815; 97530; J7030